=== PATIENT | female | born 1955 | race Caucasian/White ===

== ENCOUNTER 2019-02-26 14:37 | Inpatient (IN) ==
[2019-02-26] MEDS ORDERED: Naloxone 0.4 MG/ML INJ IVP PRN (17:34)
[2019-02-26] MEDS ORDERED: Ondansetron 4 MG/2 ML VIAL IVP PRN (17:34)
[2019-02-26] MEDS ORDERED: Ipratropium/Albuterol Neb 3 ML IH PRN (17:57)
--- NOTE | 2019-02-26 18:01 | Internal Med History&Physical ---
Date of Encounter: 02/26/19 Time of Encounter: 17:20 Internal Medicine - H&P: HPI Chief complaint: transfer from [facility] for symptomatic anemia Admitted From: Intrahospital Transfer Plans for Post Hospital Care: Transfer Half-Way Facility History of present illness: Ms. Valentino is a 63 year old female with PMH of COPD on home oxygen (2.5-3L NC), severe aortic stenosis, preserved EF heart failure, RA, HTN, anxiety, autoimmune disorder, CKD who was transferred from [facility] ER for further management of symptomatic anemia. Patient seen and examined with RN present at bedside. Patient states she was discharged from the hospital to SNF a few weeks ago, and since her discharge to home from SNF (two weeks ago), she has been gradually declining. She states she has been intermittently having dark stools, feeling more weak, and has had worsening of her shortness of breath. She states she lives with her sister but is usually able to bath herself but today she felt extremely weak to even get out of bed. She states she felt light headed and unsteady anytime she tried getting up, along with associated shortness of breath which prompted her visit to the ER. ER workup at [facility] reported Hgb of 6.1, elevated troponin of 0.119, BNP of 4188. CXR reported mild pulmonary congestion stool occult was negative. Upon arrival to the ER pt was noted to be hypoxic in high 80s off oxygen therapy. She was placed on 2L NC with significant improvement in her respiratory status. At this time, she is saturating well on nasal cannula. States she did receive PRBC transfusion a month ago. At that time she was treated for renal failure requiring hemodialysis. She was also positive for JAY and dsDNA. Pt underwent renal biopsy as well, findings reported acute tubular injury and further workup for monoclonal gammopathy was recommended. Pt is currently not on dialysis and renal function is back to baseline. Awaiting STAT type and screen and repeat CBC at this time. Ten point ROS is negative except as listed above. Pt elects Juli Christian [phone] (sister) as her POA Past Med Surg Social Fam HX - Past Medical History Medical history: arthritis, CHF, COPD, coronary artery disease, GERD, hyperlipidemia, hypertension Psychiatric history: bipolar, depression - Past Surgical History Surgical History: AICD, pacemaker Additional surgical history: "Open heart surgery" in 2017 - Social History Smoking Status: Never smoker Smokeless Tobacco Status: No Alcohol use: none Drug use: none - Family History Mother Hx Family Cardiac Disorders: Yes (CHF) Father Hx Family Cancer: Yes (lung) Internal Medicine - H&P: Meds Albuterol Neb [Proventil Neb] 2.5 mg IH Q4-6H PRN 01/01/19 [History] Albuterol Sulfate [Proventil Inhaler] 2 puff IH Q4HR PRN 01/01/19 [History] Aspirin [Adult Aspirin Regimen] 81 mg PO DAILY 01/01/19 [History] Atorvastatin [Lipitor] 20 mg PO HS 01/01/19 [History] Buspirone HCl [Buspar] 7.5 mg PO BID 01/01/19 [History] Cholecalciferol (Vitamin D3) [Vitamin D3] 50,000 unit PO MO 01/01/19 [History] DULoxetine [Cymbalta] 40 mg PO HS 01/01/19 [History] Gabapentin [Neurontin] 300 mg PO BID 01/01/19 [History] Magnesium Oxide [Magnesium] 400 mg PO DAILY 01/01/19 [History] Metoprolol [Lopressor] 37.5 mg PO BID 01/01/19 [History] Omeprazole [PriLOSEC] 40 mg PO DAILY 01/01/19 [History] Promethazine [Phenergan] 12.5 mg PO Q8HR PRN 01/01/19 [History] Umeclidinium [place] [Incruse Ellipta] 1 puff IH DAILY 01/01/19 [History] hydrOXYzine pamoate [Vistaril] 25 mg PO TID #15 capsule 01/04/19 [Rx] lamoTRIgine [Lamictal] 50 mg PO HS 01/09/19 [History] Calcitriol [Rocaltrol] 0.25 mcg PO DAILY #30 capsule 01/20/19 [Rx] Epoetin [place] [Procrit] 2,500 unit SQ 3XW vial 01/20/19 [Rx] Quetiapine Fumarate [Seroquel] 25 mg PO DAILY #30 tablet 01/20/19 [Rx] predniSONE [PredniSONE] 60 mg PO DAILY #90 tablet 01/20/19 [Rx] Allergy/AdvReac Type Severity Reaction Status Date / Time adalimumab [From Humira] Allergy See Verified 01/14/19 12:52 Comments celecoxib Allergy See Verified 01/14/19 12:52 Comments methotrexate Allergy Rash Verified 01/08/19 22:11 All Systems PM: A 10-system review of systems was performed and is negative for pertinent findings except as documented above in the HPI. Review of systems: Ten point ROS is negative except as listed in HPI - Constitutional Vitals: Temp Pulse Resp BP Pulse Ox 98.9 F 103 18 121/77 92 02/26/19 17:18 02/26/19 17:18 02/26/19 17:18 02/26/19 17:18 02/26/19 17:18 Exam: General: No acute distress, AAO x 3 HEENT: EOMI, PERRLA, NC/AT, no scleral icterus Respiratory: Clear to auscultate bilaterally, no wheezing, no rales Cardiovascular: Regular Rhythm, sinus tachycardia, + murmur GI: Soft, Non tender, non distended, normal bowel sounds Ext: No edema, no tenderness, positive pulses, arthritic deformities in bilateral hands Neuro: AAO x 3, no focal deficits, CN II-XII grossly intact Rest of the clinical exam is noncontributory - Summary of Assessment and Plan Summary of Assessment and Plan: Ms. Valentino is a 63 year old female with PMH of COPD on home oxygen (2.5-3L NC), severe aortic stenosis, preserved EF heart failure, RA, HTN, anxiety, autoimmune disorder, dialysis dependent MATEUS-now resolved, who was transferred from [facility] for further management of symptomatic anemia. Assessment/Plan: 1. Symptomatic anemia f/u repeat CBC, type and screen will transfuse PRBC after above lab workup has been obtained f/u stool occult f/u hematology and GI evaluation f/u iron studies, b12, folate levels will closely monitor H&H will closely monitor for signs of volume overload, will administer lasix after PRBC transfusion if needed 2. Elevated TNI likely demand ischemia in the setting of acute on chronic anemia will trend serial TNI no chest pain reported throughout the hospital course. No EKG changes concerning for ischemia reported. continue tele monitoring f/u lipid panel and HbA1C f/u cardiology evaluation in am f/u 2D echo 3. Chronic respiratory failure secondary to underlying COPD not in acute exacerbation continue O2 support and bronchodilator support as needed closely monitor O2 saturation 4. HTN BP within acceptable range will restart home medications after verification closely monitor BP 5. hx of CHF will restart home medications after verification no clinical evidence of CHF exacerbation f/u 2D echo DVT ppx: SCDs. LOS > 2 midnights will obtain PT eval prior to discharge Code status: Full code Care plan discussed with patient/RN - Time Spent With Patient Total time spent is greater than 50% in coordination of care (as documented) at patient's floor/unit and/or counseling patient:
[2019-02-26 18:02] LABS: Eosinophils % 0.2 %
[2019-02-26 18:04] LABS: Basophils % 0.6 %; Immature Granulocytes % 10.9 % (0-4); Lymphocytes # 1.3 K/mcL (0.6-4.6); Lymphocytes % 24.9 %; Mean Corpuscular HGB Conc 31.7 g/dL (31.6-35.5); Mean Corpuscular Hemoglobin 31.5 pg (28.0-33.3); Mean Corpuscular Volume 99.4 fL (83.0-100.0); Mean Platelet Volume 9.8 fL (9.4-12.4); Monocytes # 0.6 K/mcL (0.0-1.3); Monocytes % 11.4 %; Neutrophils # 2.8 K/mcL (1.6-8.9); Nucleated Red Blood Cells 4.2 /100 WBC (0); Platelet Count 138 K/mcL (140-400); Red Blood Count 1.81 M/mcL (3.82-4.97); Red Cell Distribution Width 19.2 % (11.5-14.5); White Blood Count 5.4 K/mcL (4.3-11.1)
[2019-02-26 18:07] LABS: Hemoglobin 5.7 g/dL (11.5-15.4)
[2019-02-26 18:27] LABS: Polychromasia 1+ (Not Present)
[2019-02-26 18:50] LABS: Folate 13.3 ng/mL (3.0-16.0)
[2019-02-26] MEDS ORDERED: 0.9 % Sodium Chloride 250 ML ONE (19:31)
[2019-02-26] MEDS ORDERED: Perflutren Lipid Microsphere 1.3 ML in 0.9 % Sodium Chloride 8.7 ML IVP ONE (21:54)
[2019-02-26 22:18] LABS: Immature Reticulocyte % 39.3 % (11.0-38.0); Retculocyte # 0.17 M/mcL (0.05-0.10); Reticulocyte % 9.5 % (1.6-2.8)
[2019-02-26 22:53] LABS: Troponin I 0.11 ng/mL (< 0.04)
[2019-02-27] MEDS ORDERED: 0.9 % Sodium Chloride 250 ML ONE (00:59)
[2019-02-27] MEDS: Acetaminophen 325 MG TABLET PO PRN ×2 (01:06→09:17)
[2019-02-27] MEDS ORDERED: traMADol 50 MG TABLET PO ONE (03:13)
[2019-02-27 06:17] LABS: Basophils # 0.1 K/mcL (0.0-0.2); Basophils % 1.3 %; Eosinophils % 0.3 %; Hematocrit 27.5 % (35.3-44.9); Immature Granulocytes % 10.3 % (0-4); Lymphocytes # 1.1 K/mcL (0.6-4.6); Lymphocytes % 18.7 %; Mean Corpuscular Hemoglobin 30.2 pg (28.0-33.3); Mean Corpuscular Volume 94.5 fL (83.0-100.0); Monocytes # 0.6 K/mcL (0.0-1.3); Monocytes % 10.3 %; Neutrophils # 3.6 K/mcL (1.6-8.9); Nucleated Red Blood Cells 5.1 /100 WBC (0); Platelet Count 138 K/mcL (140-400); Red Blood Count 2.91 M/mcL (3.82-4.97); Red Cell Distribution Width 17.9 % (11.5-14.5); Segmented Neutrophils % 59.1 %; White Blood Count 6.1 K/mcL (4.3-11.1)
[2019-02-27 06:24] LABS: Hemoglobin 8.8 g/dL (11.5-15.4)
[2019-02-27 06:42] LABS: Albumin 3.5 g/dL (3.5-5.7); Albumin/Globulin Ratio 0.9 (1.1-2.2); Bilirubin,Total 1.2 mg/dL (0.3-1.0); Calcium 9.4 mg/dL (8.6-10.3); Chol/HDL Ratio 4.3 (0-4.9); Globulin 3.7 g/dL (2.4-3.5); Magnesium 1.6 mg/dL (1.6-2.6); Phosphorous 4.6 mg/dL (2.7-4.5); Potassium 4.2 mEq/L (3.5-5.1); Total Protein 7.2 g/dL (6.4-8.9)
[2019-02-27 06:53] LABS: Anisocytosis 1+ (Not Present); Hypochromasia Present (Not Present); Large Platelets Present (Not Present); Platelet Estimate Slight Decrease (Normal); Polychromasia 1+ (Not Present)
[2019-02-27 09:37] LABS: Estimated Average Glucose 111 mg/dl
--- NOTE | 2019-02-27 10:11 | Internal Med Progress Note ---
Hospitalist Progress Note - Encounter Date of Encounter: 02/27/19 Time of Encounter: 10:08 - Subjective Interval History: Patient seen and examined at bedside. Resting in bed and reports of diffuse body pain and is noted to be on gabapentin at home for chronic pain. Denies any chest pain or shortness of breath. S/P 2 units PRBC transfusion. Reports improvement in her energy levels. Pt is requesting narcotic therapy and claimed she is on opioids at home but no pharmacy records of this were reported. Ten point ROS is negative except as listed above Noted to have up-trending troponin this morning but remains chest pain free and no EKG changes reported. Cardiology evaluation has been requested - Exam Vitals: Temp Pulse Resp BP Pulse Ox 98.6 F 73 18 137/76 99 02/27/19 06:32 02/27/19 06:32 02/27/19 06:32 02/27/19 06:32 02/27/19 09:29 Exam: General: No acute distress, AAO x 3 HEENT: EOMI, NC/AT, no scleral icterus Respiratory: Clear to auscultate bilaterally, no wheezing, no rales Cardiovascular: Regular Rhythm, sinus tachycardia, + murmur GI: Soft, Non tender, non distended, normal bowel sounds Ext: No edema, no tenderness, positive pulses, arthritic deformities in bilateral hands Neuro: AAO x 3, no focal deficits Rest of the clinical exam is noncontributory - Summary of Assessment and Plan Summary of Assessment and Plan: Ms. Valentino is a 63 year old female with PMH of COPD on home oxygen (2.5-3L NC), severe aortic stenosis, preserved EF heart failure, RA, HTN, anxiety, autoimmune disorder, dialysis dependent MATEUS-now resolved, who was transferred from [facility] for further management of symptomatic anemia. Assessment/Plan: 1. Symptomatic anemia s/p two unit PRBC transfusion on 02/26/19 Repeat H&H within acceptable range Spoke with Dr. Gibbs this morning, pt to be scheduled for EGD and colonoscopy in am. Clear liquid diet today Hematology evaluation requested will transfuse PRBC after above lab workup has been obtained iron studies consistent with anemia of chronic disease B12 and folate within normal limits will closely monitor H&H 2. Elevated TNI likely demand ischemia in the setting of acute on chronic anemia will trend serial TNI no chest pain reported throughout the hospital course. No EKG changes concerning for ischemia reported. continue tele monitoring 2D echo reporting LVEF of 60% awaiting cardiology evaluation 3. Chronic respiratory failure secondary to underlying COPD not in acute exacerbation continue O2 support and bronchodilator support as needed closely monitor O2 saturation 4. HTN BP within acceptable range restarted home medications closely monitor BP 5. hx of CHF continue home meds no clinical evidence of CHF exacerbation 2D echo reviewed 6. Chronic pain: restarted all necessary home medications 7. MATEUS likely prerenal given severe anemia will closely monitor hold all nephrotoxic agents at this time DVT ppx: SCDs. will obtain PT eval prior to discharge Code status: Full code Care plan discussed with patient/RN/consulting provider/pharmacist/case management/social work - Time Spent with Patient Total time spent is greater than 50% in coordination of care (as documented) at patient's floor/unit and/or counseling patient: Internal Medicine: Result - Labs CBC & Chem 7: 02/27/19 05:50 02/27/19 05:50 Labs: Short CBC 02/26/19 02/27/19 Range/Units 17:42 05:50 WBC 5.4 6.1 (4.3-11.1) K/mcL Hgb 5.7 L* 8.8 L D (11.5-15.4) g/dL Hct 18.0 L 27.5 L (35.3-44.9) % Plt Count 138 L 138 L (140-400) K/mcL Neutrophils # 2.8 3.6 (1.6-8.9) K/mcL BMP 02/27/19 05:50 Sodium 144 Potassium 4.2 Chloride 100 Carbon Dioxide 29 BUN 18 Creatinine 1.26 H Glucose 138 H Calcium 9.4 Cardiac Enzymes 02/26/19 02/26/19 02/27/19 Range/Units 17:42 22:40 05:50 Troponin I 0.11 H* 0.09 H* 0.15 H* (< 0.04) ng/mL Liver Function 02/27/19 Range/Units 05:50 Total Bilirubin 1.2 H (0.3-1.0) mg/dL AST 20 (13-39) Units/L ALT 15 (7-52) Units/L Alkaline Phosphatase 89 (34-104) Units/L Albumin 3.5 (3.5-5.7) g/dL - Impressions Impressions Echocardiogram Limited Views 02/26/19 17:38 Impressions: LVEF 60%. Normal LV chamber size, wall thickness and systolic function. Atypical septal motion consistent with bundle branch block. A device lead was visualized in the right atrium and right ventricle. Left Ventricular Wall Motion: Rest Echo Findings All wall segments showed normal motion. Findings: Study Quality * Technically adequate exam. ECG Findings * Sinus tachycardia with BBB. Left Ventricle * LVEF 60%. * Normal LV chamber size, wall thickness and systolic function. * Atypical septal motion consistent with bundle branch block. Pericardium * The pericardium appears normal. Device lead * A device lead was visualized in the right atrium and right ventricle. Consult Discharge Plan - Plan Referrals: Sammi Noyola [Primary Care Provider] -
[2019-02-27] MEDS ORDERED: NON-FORMULARY MEDICATION 1 EACH EACH (Umeclidinium Bromide [Incruse Ellipta] 1 PUFF) IH SCH (10:15)
[2019-02-27] MEDS ORDERED: predniSONE 5 MG TABLET PO SCH (11:00)
--- NOTE | 2019-02-27 12:15 | Cardiology Consult Note ---
<Delmar Norman - Last Filed: 02/27/19 12:09> Date of Encounter: 02/27/19 Time of Encounter: 11:30 Assessment and Plan (1) Elevated troponin Current Visit: Yes Status: Acute Troponin elevation0.11, 0.09, 0.15. Elevation in the setting of severe acute anemia. EKG with AV pacing. Pt state no chest pain but is really bothered by stuff constricting her chest (Telemetry stickers?). She is a poor historian. Suspect demand ischemia. Pt likely had LHC prior to valvular heart surgery. We will order records. TTE ordered. Further rec to follow. (2) Valvular heart disease Current Visit: No Status: Suspected Describes valvular repair and ppm placement 07/2018 at [facility]. Records ordered. Discussion w patient/family: The assessment and plan as outlined above was discussed with the patient and/or family members who expressed understanding and agreement. All questions were answered. Thank you for involving us in the care of your patient. Please call with any questions. History of Present Illness Consult date: 02/27/19 Requesting physician: Brielle Whelan Consult reason: elevated troponin Chief complaint: fatigue, SOB History of present illness: Ms. Valentino is a 63 year old female with PMH of valvular heart disease s/p repair 07/2018 at [facility], S/p PPM placement 07/2018, HTN, CKD. She was transferred from [facility] with symptomatic anemia. Hgb as low as 5.7. She c/o SOB and fatigue. Cardiology consulted for elevated troponin. She c/o frequent hospital visits for UTI, MATEUS, and anemia since her open heart valvular surgery. She required short term dialysis at one point. She is a poor historian. We will order records of recent surgery and cardiac testing. She states she deoes not have any chest pain although describes chest tightness due to her telemetry stickers? It is somewhat difficult to evaluate symptoms d/t being poor historian. Past Med Surg Social Fam HX - Past Medical History Medical history: arthritis, CHF, COPD, coronary artery disease, GERD, hyperlipidemia, hypertension, valvular heart disease Psychiatric history: bipolar, depression - Past Surgical History Surgical History: AICD, pacemaker Additional surgical history: "Open heart surgery" in 2017 - Social History Smoking Status: Never smoker Smokeless Tobacco Status: No Alcohol use: none Drug use: none - Family History Mother Hx Family Cardiac Disorders: Yes (CHF) Father Hx Family Cancer: Yes (lung) Medications and Allergies Albuterol Neb [Proventil Neb] 2.5 mg IH Q4-6H PRN 01/01/19 [History] Albuterol Sulfate [Proventil Inhaler] 2 puff IH Q4HR PRN 01/01/19 [History] Aspirin [Adult Aspirin Regimen] 81 mg PO DAILY 01/01/19 [History] Atorvastatin [Lipitor] 20 mg PO HS 01/01/19 [History] Buspirone HCl [Buspar] 7.5 mg PO BID 01/01/19 [History] Cholecalciferol (Vitamin D3) [Vitamin D3] 50,000 unit PO MO 01/01/19 [History] DULoxetine [Cymbalta] 40 mg PO HS 01/01/19 [History] Gabapentin [Neurontin] 300 mg PO BID 01/01/19 [History] Magnesium Oxide [Magnesium] 400 mg PO DAILY 01/01/19 [History] Metoprolol [Lopressor] 37.5 mg PO BID 01/01/19 [History] Omeprazole [PriLOSEC] 40 mg PO DAILY 01/01/19 [History] Promethazine [Phenergan] 12.5 mg PO Q8HR PRN 01/01/19 [History] Umeclidinium [place] [Incruse Ellipta] 1 puff IH DAILY 01/01/19 [History] hydrOXYzine pamoate [Vistaril] 25 mg PO TID #15 capsule 01/04/19 [Rx] lamoTRIgine [Lamictal] 50 mg PO HS 01/09/19 [History] Calcitriol [Rocaltrol] 0.25 mcg PO DAILY #30 capsule 01/20/19 [Rx] Epoetin [place] [Procrit] 2,500 unit SQ 3XW vial 01/20/19 [Rx] Quetiapine Fumarate [Seroquel] 25 mg PO DAILY #30 tablet 01/20/19 [Rx] predniSONE [PredniSONE] 5 mg PO DAILY 02/27/19 [History] Allergy/AdvReac Type Severity Reaction Status Date / Time adalimumab [From Humira] Allergy See Verified 01/14/19 12:52 Comments celecoxib Allergy See Verified 01/14/19 12:52 Comments methotrexate Allergy Rash Verified 01/08/19 22:11 All Systems Review: The remainder of the systems were reviewed and are negative Physical Examination Vital Signs, Last 4 Hours Temp Pulse Resp BP Pulse Ox 02/27/19 10:29 98.8 F 60 17 136/76 98 02/27/19 09:29 99 General: Conversant, No Apparent Distress, Other (pale, ill appearing) HEENT: Atraumatic, Normocephaly, Mucus Membranes Moist Neck: No JVD, Normal carotid pulses Cardiac: Reg Rate and Rhythm, Normal S1 and S2, No Murmur, Other (AV pacing, midsternal incision healed) Lungs: Normal Breath Sounds, No Wheeze, Rales, Rhonchi Neuro: Alert and responsive, No focal deficits noted Abdomen: Soft, Non-Tender Skin: No rashes noted on visualized skin Musculoskeletal: No Chest Wall Tenderness Extremities: No Clubbing, No Cyanosis, No Edema, Normal Pulses Results 02/27/19 05:50 02/27/19 05:50 Lab Results 02/26/19 02/26/19 02/26/19 17:42 17:42 22:40 WBC 5.4 Hgb 5.7 L* Hct 18.0 L Plt Count 138 L Sodium Potassium Chloride Carbon Dioxide BUN Creatinine Glucose Calcium Magnesium Total Bilirubin AST ALT Alkaline Phosphatase Troponin I 0.11 H* 0.09 H* 02/27/19 02/27/19 02/27/19 05:50 05:50 05:50 WBC 6.1 Hgb 8.8 L D Hct 27.5 L Plt Count 138 L Sodium 144 Potassium 4.2 Chloride 100 Carbon Dioxide 29 BUN 18 Creatinine 1.26 H Glucose 138 H Calcium 9.4 Magnesium 1.6 Total Bilirubin 1.2 H AST 20 ALT 15 Alkaline Phosphatase 89 Troponin I 0.15 H* - Imaging and Cardiology Echo: report reviewed - EKG Interpretation EKG results cardiology: personally reviewed Consult Discharge Plan - Plan Referrals: Sammi Noyola [Primary Care Provider] - <Natividad Sainz - Last Filed: 02/27/19 18:58> Date of Encounter: 02/27/19 - Attending Attestation Patient was seen and evaluated independently by me. Findings, assessment and plan were discussed at length with patient, questions answered. Agree with nurse practitioner's/resident's documentation. Addition as follows, 63yoF ho unclear valve surgery and PPM w/o A/C, moderate on TTE, COPD, RA, HTN. P/w dyspnea and fatigue. Sig for Hb 6 from baseline 10 1wk ago. Plan GIB w/u. Consulted for trop peak 0.15. No chest pain, palpitations. VSS, CTA, RR, 3/6 SM 2nd ICS and ULSB, no LE edema. ECG A-V pacing. [id number] TTE LVEF 60%. Atypical septal motion consistent with paced rhythm. There is tissue doppler evidence of elevated filling pressures Normal right size with mild right ventricular hypokinesis.. Moderate aortic stenosis. Peak aortic velocity and mean gradient are 3.24m/s and 26 mmHg, respectively. Moderate tricuspid regurgitation. Moderate pulmonary hypertension.Estimated RVSP is 59 mmHg. A device lead was visualized in the right atrium and right ventricle. A: Mild troponin elevation, type II likely Acute anemia, pending GIB w/u, moderate after [id number] probable AVR, r/o Heyde's syndrome/angiodysplasia PPM AP pacing MATEUS P: pending limited TTE pending EGD r/o angiodysplasia, if +, will need re-eval Natividad Sainz MD, PhD Assessment and Plan Discussion w patient/family: The assessment and plan as outlined above was discussed with the patient and/or family members who expressed understanding and agreement. All questions were answered. Thank you for involving us in the care of your patient. Please call with any questions. History of Present Illness History of present illness: Ms. Valentino is a 63 year old female All Systems Review: The remainder of the systems were reviewed and are negative Physical Examination Vital Signs, Last 4 Hours Temp Pulse Resp BP Pulse Ox 02/27/19 14:59 98.5 F 119 19 127/79 98 Results 02/27/19 17:03 02/27/19 05:50 Lab Results 02/26/19 02/26/19 02/27/19 17:42 22:40 05:50 WBC 6.1 Hgb 8.8 L D Hct 27.5 L Plt Count 138 L Sodium Potassium Chloride Carbon Dioxide BUN Creatinine Glucose Calcium Magnesium Total Bilirubin AST ALT Alkaline Phosphatase Troponin I 0.11 H* 0.09 H* 02/27/19 02/27/19 02/27/19 05:50 05:50 13:01 WBC Hgb Hct Plt Count Sodium 144 Potassium 4.2 Chloride 100 Carbon Dioxide 29 BUN 18 Creatinine 1.26 H Glucose 138 H Calcium 9.4 Magnesium 1.6 Total Bilirubin 1.2 H AST 20 ALT 15 Alkaline Phosphatase 89 Troponin I 0.15 H* 0.14 H* 02/27/19 17:03 WBC 5.2 Hgb 7.9 L Hct 25.0 L Plt Count 113 L Sodium Potassium Chloride Carbon Dioxide BUN Creatinine Glucose Calcium Magnesium Total Bilirubin AST ALT Alkaline Phosphatase Troponin I
[2019-02-27] MEDS: Magnesium Oxide 400 MG TABLET PO SCH (12:37)
[2019-02-27] MEDS: hydrOXYzine pamoate 25 MG CAPSULE PO SCH ×3 (12:37→21:31)
[2019-02-27] MEDS: Aspirin Enteric Coated 81 MG Tablet PO SCH (12:37)
[2019-02-27] MEDS: Gabapentin 300 MG CAPSULE PO SCH ×2 (12:37→21:31)
--- NOTE | 2019-02-27 12:45 | Electrocardiograph Report ---
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
[2019-02-27] MEDS: Tiotropium 18 MCG inhalation IH SCH (13:18)
--- NOTE | 2019-02-27 14:38 | Oncology Inp Consult Note ---
<Cornel Guzman - Last Filed: 02/27/19 22:31> Date of Encounter: 02/27/19 - Data of Consult Requesting Physician: Brielle Whelan MD Primary Care Provider: Sammi Noyola Medications and Allergies Albuterol Neb [Proventil Neb] 2.5 mg IH Q4-6H PRN 01/01/19 [History] Albuterol Sulfate [Proventil Inhaler] 2 puff IH Q4HR PRN 01/01/19 [History] Aspirin [Adult Aspirin Regimen] 81 mg PO DAILY 01/01/19 [History] Atorvastatin [Lipitor] 20 mg PO HS 01/01/19 [History] Buspirone HCl [Buspar] 7.5 mg PO BID 01/01/19 [History] Cholecalciferol (Vitamin D3) [Vitamin D3] 50,000 unit PO MO 01/01/19 [History] DULoxetine [Cymbalta] 40 mg PO HS 01/01/19 [History] Gabapentin [Neurontin] 300 mg PO BID 01/01/19 [History] Magnesium Oxide [Magnesium] 400 mg PO DAILY 01/01/19 [History] Metoprolol [Lopressor] 37.5 mg PO BID 01/01/19 [History] Omeprazole [PriLOSEC] 40 mg PO DAILY 01/01/19 [History] Promethazine [Phenergan] 12.5 mg PO Q8HR PRN 01/01/19 [History] Umeclidinium [place] [Incruse Ellipta] 1 puff IH DAILY 01/01/19 [History] hydrOXYzine pamoate [Vistaril] 25 mg PO TID #15 capsule 01/04/19 [Rx] lamoTRIgine [Lamictal] 50 mg PO HS 01/09/19 [History] Calcitriol [Rocaltrol] 0.25 mcg PO DAILY #30 capsule 01/20/19 [Rx] Epoetin [place] [Procrit] 2,500 unit SQ 3XW vial 01/20/19 [Rx] Quetiapine Fumarate [Seroquel] 25 mg PO DAILY #30 tablet 01/20/19 [Rx] predniSONE [PredniSONE] 5 mg PO DAILY 02/27/19 [History] Allergy/AdvReac Type Severity Reaction Status Date / Time adalimumab [From Humira] Allergy See Verified 01/14/19 12:52 Comments celecoxib Allergy See Verified 01/14/19 12:52 Comments methotrexate Allergy Rash Verified 01/08/19 22:11 Consult Discharge Plan - Plan Referrals: Sammi Noyola [Primary Care Provider] - - Attending Attestation I have seen and examined Ms Valentino and agree with the assessment and plan put in place by Mr. Tapia. She has RA on chronic prednisone. She was recently hospitalized for MATEUS secondary to acute tubular injury. She was on HD for a brief period which has been discontinued. At her last hospitalization, JAY and dsDNA positive. SPEP/SIFE without paraprotein. SFLC ratio normal and UIFE without BJ proteinuria. There is no evidence of myeloma/paraproteinemia. She has been admitted with progressive fatigue and significant anemia. Nutritional studies are normal. However, LDH is elevated, bilirubin minimally elevated concerning for hemolysis. Haptoglobin and KENIA pending. LDH may also be elevated from tissue ischemia (troponin is also elevated). Platelets have also decreased. If she has diminished haptoglobin and KENIA positivity, this would be c/w Adolfo's syndrome. For now, have placed on prednisone 60 mg daily pending above. GI has been consulted for EGD/colonoscopy planned for tomorrow. Further decisions pending the above. Inpatient Charges Provider: Dr. Alexandra Guzman Consult - Inpatient: [id number] <Galdino Tapia Jr - Last Filed: 02/28/19 11:46> Date of Encounter: 02/28/19 Time of Encounter: 14:36 Assessment and Plan (1) Anemia Status: Acute Assessment and plan: This is a 63-year-old female transferred from a [facility] for symptomatic anemia with Hgb of 5.8. Patient was recently diagnosed with tubular injury of kidneys and required hemodialysis. Her kidney functions recovered, and is no longer on dialysis. Patient's red blood cell panel has hospitalist concerned for something along the lines of monoclonal gammopathy. Patient's kidney functions currently stable with creatinine 1.26 and a GFR 43. calcium normal at 9.4 She is s/p two unit PRBC transfusion on 02/26/19 Hgb now 8.8 Iron Panel normal with ferritin>700, could be acute phase reactant B12 and folate within normal limits Recommendations: 1. Continue H/H and transfuse if Hgb<7. CBC ordered now to recheck Hgb 2. Serum free light chains normal ratio even though kappa/gamma elevated, no myeloma; protein electrophoresis with no monoclonal proteins. 3. Since JAY positive/reticulocytosis, check for hemolytic anemia: LDH, erythropoetin, haptoglobin. Added peripheral smear. ordered today. KENIA poly, Interpret was negative on 02/26/19. 4. Continue prednisone. 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 Dr. Gibbs is scheduled for EGD and colonoscopy tomorrow morning. 6. Further recommendations to follow Dr Guzman assessed patient with me today Qualifiers: Anemia type: iron deficiency Iron deficiency anemia type: inadequate dietary iron intake Qualified Code(s): D50.8 - Other iron deficiency anemias - Data of Consult Patient: new to practice Consult date: 02/27/19 Requesting Physician: Brielle Whelan MD Primary Care Provider: Sammi Noyola - Consult Narrative Reason for consult: anemia, symptomatic History of present illness: Ms. Valentino is a 63 year old female with PMH of COPD on home oxygen (2.5-3L NC), severe aortic stenosis, preserved EF heart failure, RA, HTN, anxiety, autoimmune disorder, CKD who was transferred from [facility] ER for further management of symptomatic anemia. She is a patient of Dr Orourke for RA, but she denies lupus history. She was discharged from the hospital to SNF a few weeks ago, and since her discharge to home from SNF (two weeks ago), she has been intermittently having dark stools, feeling more weak, and has had worsening of her shortness of breath. She states she lives with her sister but is usually able to bath herself but today she felt extremely weak to even get out of bed. She had dizziness on position change with exertional dyspnea ER workup at [facility] reported Hgb of 6.1, elevated troponin of 0.119, BNP of 4188. CXR reported mild pulmonary congestion stool occult was negative. Upon arrival to the ER pt was noted to be hypoxic in high 80s off oxygen therapy. She was placed on 2L NC with significant improvement in her respiratory status. She did receive PRBC transfusion a month ago. At that time she was treated for renal failure requiring hemodialysis She was also positive for JAY and dsDNA. Pt underwent renal biopsy as well, findings reported acute tubular injury and further workup for monoclonal gammopathy was recommended. Pt is currently not on dialysis and renal function is back to baseline. Past Med Surg Social Fam HX - Past Medical History Medical history: arthritis, CHF, COPD, coronary artery disease, GERD, hyperlipidemia, hypertension, valvular heart disease Psychiatric history: bipolar, depression - Past Surgical History Surgical History: AICD, pacemaker Additional surgical history: "Open heart surgery" in 2017 - Social History Smoking Status: Never smoker Smokeless Tobacco Status: No Alcohol use: none Drug use: none - Family History Mother Hx Family Cardiac Disorders: Yes (CHF) Father Hx Family Cancer: Yes (lung) Constitutional: Present: fatigue, malaise Respiratory: Present: dyspnea on exertion Neurological: Present: dizziness Oncology - Exam - Constitutional General appearance: cooperative, no acute distress - Head Head exam: Present: normal inspection, normocephalic - Eye Eye exam: Present: PERRL - ENT ENT exam: Present: mucous membranes moist - Neck Neck exam: Present: full ROM - Respiratory Respiratory exam: Present: CTAB - Cardiovascular Cardiovascular exam: Present: RRR - GI/Abdominal GI/Abdominal exam: Present: soft - Extremities Exam Extremities exam: Present: full ROM - Neurological Exam Neurological exam: Present: alert, oriented X3, no focal deficits - Psychiatric Psychiatric exam: Present: normal affect, normal mood - Skin Skin exam: Present: dry, intact, warm Oncology Inpatient Results Labs: Laboratory Last Values WBC 6.1 K/mcL (4.3-11.1) 02/27/19 05:50 RBC 2.91 M/mcL (3.82-4.97) L 02/27/19 05:50 Hgb 8.8 g/dL (11.5-15.4) L D 02/27/19 05:50 Hct 27.5 % (35.3-44.9) L 02/27/19 05:50 MCV 94.5 fL (83.0-100.0) 02/27/19 05:50 MCH 30.2 pg (28.0-33.3) 02/27/19 05:50 MCHC 32.0 g/dL (31.6-35.5) 02/27/19 05:50 RDW 17.9 % (11.5-14.5) H 02/27/19 05:50 Plt Count 138 K/mcL (140-400) L 02/27/19 05:50 MPV 10.0 fL (9.4-12.4) 02/27/19 05:50 Reticulocyte # 0.17 M/mcL (0.05-0.10) H 02/26/19 17:42 Immature Gran % 10.3 % (0-4) H 02/27/19 05:50 Seg Neutrophils % 59.1 % 02/27/19 05:50 18.7 % 02/27/19 05:50 10.3 % 02/27/19 05:50 0.3 % 02/27/19 05:50 1.3 % 02/27/19 05:50 3.6 K/mcL (1.6-8.9) 02/27/19 05:50 1.1 K/mcL (0.6-4.6) 02/27/19 05:50 0.6 K/mcL (0.0-1.3) 02/27/19 05:50 0.0 K/mcL (0.0-0.6) 02/27/19 05:50 0.1 K/mcL (0.0-0.2) 02/27/19 05:50 Nucleated RBCs/100 WBC 5.1 /100 WBC (0) H 02/27/19 05:50 Slight Decrease (Normal) L 02/27/19 05:50 Present (Not Present) A 02/27/19 05:50 1+ (Not Present) A 02/27/19 05:50 Present (Not Present) A 02/27/19 05:50 1+ (Not Present) A 02/27/19 05:50 Percent Retic 9.5 % (1.6-2.8) H 02/26/19 17:42 Immature Retic Fraction 39.3 % (11.0-38.0) H 02/26/19 17:42 Retic Hgb Equivalent 33.9 pg (28.61-36.33) 02/26/19 17:42 Sodium 144 mEq/L (136-145) 02/27/19 05:50 Potassium 4.2 mEq/L (3.5-5.1) 02/27/19 05:50 Chloride 100 mEq/L (98-107) 02/27/19 05:50 Carbon Dioxide 29 mEq/L (23-29) 02/27/19 05:50 BUN 18 mg/dL (8-23) 02/27/19 05:50 1.26 mg/dL (0.60-1.20) H 02/27/19 05:50 Est GFR ( Amer) 52 (> 60) L 02/27/19 05:50 Est GFR (Non-Af Amer) 43 (> 60) L 02/27/19 05:50 14 (6-26) 02/27/19 05:50 Glucose 138 mg/dL (70-105) H 02/27/19 05:50 POC Glucose 167 mg/dL (70-99) H 02/27/19 06:36 Est Mean Plasma Glucose 111 mg/dl 02/27/19 05:50 5.5 % (-5.6) 02/27/19 05:50 302 (280-300) H 02/27/19 05:50 Calcium 9.4 mg/dL (8.6-10.3) 02/27/19 05:50 Phosphorus 4.6 mg/dL (2.7-4.5) H 02/27/19 05:50 Magnesium 1.6 mg/dL (1.6-2.6) 02/27/19 05:50 Iron 53 mcg/dL (50-170) 02/26/19 17:42 % Saturation 17 % (15-50) 02/26/19 17:42 221 mg/dL (203-362) 02/26/19 17:42 753 ng/mL (10-120) H 02/26/19 17:42 1.2 mg/dL (0.3-1.0) H 02/27/19 05:50 AST 20 Units/L (13-39) 02/27/19 05:50 ALT 15 Units/L (7-52) 02/27/19 05:50 89 Units/L (34-104) 02/27/19 05:50 477 Units/L (140-271) H 02/26/19 17:42 0.15 ng/mL (< 0.04) H* 02/27/19 05:50 7.2 g/dL (6.4-8.9) 02/27/19 05:50 3.5 g/dL (3.5-5.7) 02/27/19 05:50 3.7 g/dL (2.4-3.5) H 02/27/19 05:50 0.9 (1.1-2.2) L 02/27/19 05:50 Triglycerides 270 mg/dL (< 150) H 02/27/19 05:50 Cholesterol 124 mg/dL (< 200) 02/27/19 05:50 LDL Cholesterol, Calc 41 mg/dL (0-99) 02/27/19 05:50 VLDL Cholesterol, Calc 54 mg/dL (< 31) H 02/27/19 05:50 29 mg/dL (40-59) L 02/27/19 05:50 4.3 (0-4.9) 02/27/19 05:50 Vitamin B12 408 pg/mL (250-1100) 02/26/19 17:42 13.3 ng/mL (3.0-16.0) 02/26/19 17:42 Blood Type O NEGATIVE 02/26/19 17:42 Antibody Screen POSITIVE 02/26/19 17:42 Antibody Identification Anti-K 02/26/19 17:42 KENIA, Poly Interpret NEG 02/26/19 17:42 MTS Gel Crossmatch See Detail 02/26/19 17:42
--- NOTE | 2019-02-27 15:10 | Gastroenterology Consult Note ---
<Td Wilkinson Jeff - Last Filed: 02/27/19 15:07> Date of Encounter: 02/27/19 Time of Encounter: 10:55 - Assessment and plan (1) Anemia Current Visit: No Status: Acute Assessment and plan: Hgb 6.1 at [facility]. On arrival here, Hgb 5.7 and today Hgb 8.8 after receiving 2 units PRBC. Continue to monitor CBC and transfuse PRBC as needed. Plan for EGD and colonoscopy tomorrow. Clear liquid diet today, no red or purple. NPO at midnight. If unable tolerate NuLytely please use MiraLAX prep. If not clear by 6 AM, give 2 tap water enemas. Qualifiers: Iron deficiency anemia type: inadequate dietary iron intake Qualified Code(s): D50.8 - Other iron deficiency anemias (2) Elevated troponin Current Visit: Yes Status: Acute Assessment and plan: Troponin elevated 0.11-0.09-0.15. Management per Cardiology. - Time Spent With Patient Total time spent is greater than 50% in coordination of care (as documented) at patient's floor/unit and/or counseling patient: GI History of Present Illness - Data of Consult Patient: new to practice Consult date: 02/27/19 Requesting Physician: Brielle Whelan MD - Consult Narrative Reason for consult: Anemia History of present illness: Ms. Valentino is a 63 year old female with PMHx of CHF, COPD, CAD, GERD, HLD, HTN, RA who was transferred from [facility] for evaluation of symptomatic anemia. Patient states she was discharged from the hospital to SNF a few weeks ago, and since her discharge to home from SNF (two weeks ago), she has been gradually declining. She states she has been intermittently having dark stools, feeling more weak, and has had worsening of her shortness of breath. Hgb 6.1 at [facility]. On arrival here, Hgb 5.7 and today Hgb 8.8 after receiving 2 units PRBC. Troponin elevated 0.11-0.09-0.15. Procedures: Colonoscopy in [place] normal per patient report. EGD 12/28/2009 Dr. Tapia: Gastritis. Colonoscopy 12/28/2009 Dr. Tapia: No pathology available, unable to open report. NSAIDs: ASA Anticoagulation: None Past Med Surg Social Fam HX - Past Medical History Medical history: arthritis, CHF, COPD, coronary artery disease, GERD, hyperlipidemia, hypertension, valvular heart disease Psychiatric history: bipolar, depression - Past Surgical History Surgical History: AICD, pacemaker Additional surgical history: "Open heart surgery" in 2017 - Social History Smoking Status: Never smoker Smokeless Tobacco Status: No Alcohol use: none Drug use: none - Family History Mother Hx Family Cardiac Disorders: Yes (CHF) Father Hx Family Cancer: Yes (lung) - Gastrointestinal Gastrointestinal: Present: as per HPI - Constitutional Constitutional: as per HPI - EENT Eyes: as per HPI Ears: Present: as per HPI Nose, mouth and throat: Present: as per HPI - Cardiovascular Cardiovascular ROS: Present: as per HPI - Respiratory Respiratory IM: Present: as per HPI - Genitourinary Genitourinary: Absent: change in color, Urinary frequency - Neurological ROS Neurological GI: Present: as per HPI - Hematologic/Lymphatic Hematologic/Lymphatic pediatric: Present: as per HPI - Musculoskeletal Musculoskeletal ROS GI: Present: as per HPI - Integumentary Integumentary GI: Present: as per HPI - Psychiatric ROS Psychiatric GI: Present: as per HPI - Endocrine Endocrine IM: Present: as per HPI - Constitutional Vitals: Temp Pulse Resp BP Pulse Ox 98.5 F 119 19 127/79 98 02/27/19 14:59 02/27/19 14:59 02/27/19 14:59 02/27/19 14:59 02/27/19 14:59 General appearance: Present: cooperative, A&O X 3, no acute distress, answers questions appropriately - Head Head exam: Present: atraumatic, normocephalic - Eye Eye exam: Present: normal appearance, sclera anicteric - ENT ENT exam: Present: mucous membranes dry - Neck Neck exam general surgery: Present: normal inspection, trachea midline - Respiratory Respiratory exam: Present: CTAB. Absent: rales, rhonchi - Cardiovascular Cardiovascular exam: Present: RRR Additional comments: + murmur - GI/Abdominal GI/Abdominal exam: Present: soft, no peritoneal signs. Absent: distended, firm, guarding, tenderness - Rectal Rectal exam: Present: deferred - Extremities Exam Extremities exam: Present: warm - Neurological Exam Neurological exam: Present: no focal deficits - Psychiatric Psychiatric exam: Present: normal affect, normal mood - Skin Skin exam: Present: dry, intact, normal color, warm Results - Labs CBC & Chem 7: 02/27/19 05:50 02/27/19 05:50 Labs: Last Result 02/27/19 02/27/19 02/27/19 05:50 05:50 13:01 Calcium 9.4 Troponin I 0.15 H* 0.14 H* Triglycerides 270 H Entire Visit 02/27/19 02/27/19 05:50 05:50 Hgb 8.8 L D Hct 27.5 L Total Bilirubin 1.2 H AST 20 ALT 15 - Impressions Impressions Echocardiogram Limited Views 02/26/19 17:38 Impressions: LVEF 60%. Normal LV chamber size, wall thickness and systolic function. Atypical septal motion consistent with bundle branch block. A device lead was visualized in the right atrium and right ventricle. Left Ventricular Wall Motion: Rest Echo Findings All wall segments showed normal motion. Findings: Study Quality * Technically adequate exam. ECG Findings * Sinus tachycardia with BBB. Left Ventricle * LVEF 60%. * Normal LV chamber size, wall thickness and systolic function. * Atypical septal motion consistent with bundle branch block. Pericardium * The pericardium appears normal. Device lead * A device lead was visualized in the right atrium and right ventricle. Consult Discharge Plan - Plan Referrals: Sammi Noyola [Primary Care Provider] - <Sotero Gibbs - Last Filed: 02/27/19 22:14> Date of Encounter: 02/27/19 Time of Encounter: 17:20 - Time Spent With Patient Total time spent is greater than 50% in coordination of care (as documented) at patient's floor/unit and/or counseling patient: GI History of Present Illness - Data of Consult Requesting Physician: Brielle Whelan MD - Consult Narrative History of present illness: Ms. Valentino is a 63 year old female - Constitutional Vitals: Temp Pulse Resp BP Pulse Ox 99.8 F H 64 20 114/70 98 02/27/19 21:28 02/27/19 21:28 02/27/19 21:28 02/27/19 21:28 02/27/19 21:28 Results - Labs CBC & Chem 7: 02/27/19 17:03 02/27/19 05:50 Labs: Last Result 07/11/19 13:01 Troponin I 0.14 H* Entire Visit 02/27/19 17:03 Hgb 7.9 L Hct 25.0 L - Impressions Impressions Echocardiogram Limited Views 02/26/19 17:38 Impressions: LVEF 60%. Normal LV chamber size, wall thickness and systolic function. Atypical septal motion consistent with bundle branch block. A device lead was visualized in the right atrium and right ventricle. Left Ventricular Wall Motion: Rest Echo Findings All wall segments showed normal motion. Findings: Study Quality * Technically adequate exam. ECG Findings * Sinus tachycardia with BBB. Left Ventricle * LVEF 60%. * Normal LV chamber size, wall thickness and systolic function. * Atypical septal motion consistent with bundle branch block. Pericardium * The pericardium appears normal. Device lead * A device lead was visualized in the right atrium and right ventricle. - Attending Attestation I have personally performed a face to face evaluation on this patient. I have reviewed and agree with the care plan. History and Exam by me shows: Patient seen . patient admitted because of symptomatic anemia. Examination patient is alert and awake not in acute distress abdomen is benign. A: With symptomatic anemia does has chronic medical problems including chronic kidney disease and the anemia is most probably due to anemia of chronic disease but rule out GI causes. Recommendation: EGD colonoscopy tomorrow
[2019-02-27] MEDS ORDERED: SODIUM CHLORIDE/NAHCO3/KCL/PEG 4,000 ML SOLN.RECON PO ONE (17:00)
[2019-02-27 17:44] LABS: Hemoglobin 7.9 g/dL (11.5-15.4); Mean Corpuscular HGB Conc 31.6 g/dL (31.6-35.5); Mean Corpuscular Hemoglobin 30.6 pg (28.0-33.3); Mean Corpuscular Volume 96.9 fL (83.0-100.0); Mean Platelet Volume 9.9 fL (9.4-12.4); Nucleated Red Blood Cells 3.3 /100 WBC (0); Platelet Count 113 K/mcL (140-400); Red Blood Count 2.58 M/mcL (3.82-4.97); Red Cell Distribution Width 18.6 % (11.5-14.5); White Blood Count 5.2 K/mcL (4.3-11.1)
[2019-02-27 18:11] LABS: Lymphocytes # 0.9 K/mcL (0.6-4.6); Monocytes # 0.3 K/mcL (0.0-1.3); Neutrophils # 3.9 K/mcL (1.6-8.9); Platelet Estimate Slight Decrease (Normal)
[2019-02-27] MEDS: lamoTRIgine 100 MG TABLET PO SCH (21:31)
[2019-02-28 06:48] LABS: BUN/Creatinine Ratio 12 (6-26); Blood Urea Nitrogen 12 mg/dL (8-23); Calcium 8.8 mg/dL (8.6-10.3); Carbon Dioxide 27 mEq/L (23-29); Chloride 106 mEq/L (98-107); Glucose 98 mg/dL (70-105); Magnesium 1.6 mg/dL (1.6-2.6); Osmolality,Calculated 294 (280-300); Phosphorous 2.9 mg/dL (2.7-4.5); Sodium 142 mEq/L (136-145); eGFR For African Americans > 60 (> 60); eGFR For Non-African Americans 57 (> 60)
[2019-02-28] MEDS ORDERED: Propofol 500 MG/50 ML INFUS..BTL ONE (07:00)
[2019-02-28 07:24] LABS: Basophils # 0.1 K/mcL (0.0-0.2); Basophils % 0.9 %; Eosinophils % 0.3 %; Hematocrit 25.5 % (35.3-44.9); Hemoglobin 8.5 g/dL (11.5-15.4); Immature Granulocytes % 7.7 % (0-4); Lymphocytes # 1.8 K/mcL (0.6-4.6); Lymphocytes % 29.8 %; Mean Corpuscular HGB Conc 33.3 g/dL (31.6-35.5); Mean Corpuscular Hemoglobin 31.1 pg (28.0-33.3); Mean Corpuscular Volume 93.4 fL (83.0-100.0); Mean Platelet Volume 10.6 fL (9.4-12.4); Monocytes # 0.7 K/mcL (0.0-1.3); Monocytes % 12.6 %; Neutrophils # 2.9 K/mcL (1.6-8.9); Nucleated Red Blood Cells 3.4 /100 WBC (0); Platelet Count 127 K/mcL (140-400); Red Blood Count 2.73 M/mcL (3.82-4.97); Red Cell Distribution Width 18.5 % (11.5-14.5); Segmented Neutrophils % 48.7 %; White Blood Count 5.9 K/mcL (4.3-11.1)
[2019-02-28 07:25] LABS: Platelet Estimate Normal (Normal)
[2019-02-28] MEDS ORDERED: Lidocaine -MPF 2% 2 ML VIAL ONE (08:12)
[2019-02-28] MEDS ORDERED: *HR* PHENYLEPHRINE 1,000 MCG/10 ML SYRINGE IVP ONE (08:13)
--- NOTE | 2019-02-28 08:17 | Anesthesia Evaluation PreOp ---
Date of Encounter: 02/28/19 Time of Encounter: 08:15 - Past History Planned Operation: EGD and colonoscopy Cardiac History: HTN, Hyperlipidemia, Arrhythmia (afib), Pacemaker/ICD (pacer), Other (troponin elevated in the setting of acute anemia) Pulmonary History: COPD (on 2.5L oxygen) [employer] History: Other (bipolar depression) Other Medical History: Renal (MATEUS requiring breif dialysis), GERD, Other (acute blood loss anemia) Anesthesia History: No Prior Anesthetic Complications, Past Anesthesia (Aortic valvuloplasty) Alcohol Use: none Drug use: none Medications and Allergies Albuterol Neb [Proventil Neb] 2.5 mg IH Q4-6H PRN 01/01/19 [History] Albuterol Sulfate [Proventil Inhaler] 2 puff IH Q4HR PRN 01/01/19 [History] Aspirin [Adult Aspirin Regimen] 81 mg PO DAILY 01/01/19 [History] Atorvastatin [Lipitor] 20 mg PO HS 01/01/19 [History] Buspirone HCl [Buspar] 7.5 mg PO BID 01/01/19 [History] Cholecalciferol (Vitamin D3) [Vitamin D3] 50,000 unit PO MO 01/01/19 [History] DULoxetine [Cymbalta] 40 mg PO HS 01/01/19 [History] Gabapentin [Neurontin] 300 mg PO BID 01/01/19 [History] Magnesium Oxide [Magnesium] 400 mg PO DAILY 01/01/19 [History] Metoprolol [Lopressor] 37.5 mg PO BID 01/01/19 [History] Omeprazole [PriLOSEC] 40 mg PO DAILY 01/01/19 [History] Promethazine [Phenergan] 12.5 mg PO Q8HR PRN 01/01/19 [History] Umeclidinium [place] [Incruse Ellipta] 1 puff IH DAILY 01/01/19 [History] hydrOXYzine pamoate [Vistaril] 25 mg PO TID #15 capsule 01/04/19 [Rx] lamoTRIgine [Lamictal] 50 mg PO HS 01/09/19 [History] Calcitriol [Rocaltrol] 0.25 mcg PO DAILY #30 capsule 01/20/19 [Rx] Epoetin [place] [Procrit] 2,500 unit SQ 3XW vial 01/20/19 [Rx] Quetiapine Fumarate [Seroquel] 25 mg PO DAILY #30 tablet 01/20/19 [Rx] predniSONE [PredniSONE] 5 mg PO DAILY 02/27/19 [History] Allergy/AdvReac Type Severity Reaction Status Date / Time adalimumab [From Humira] Allergy See Verified 01/14/19 12:52 Comments celecoxib Allergy See Verified 01/14/19 12:52 Comments methotrexate Allergy Rash Verified 01/08/19 22:11 - Meds/Allergy Pre-op Review Medications Reviewed: Yes Allergies Reviewed: Yes Beta Blockers on Current Med List: No Anesthesia Results - Labs 02/28/19 06:15 02/28/19 06:15 - Imaging EKG: report reviewed ( Interpretive Statements ELECTRONIC VENTRICULAR PACEMAKER ABNORMAL RHYTHM ECG Electronically Signed On 02-27-2019 12:44:05 EDT by Demetrice Sarmiento) Additional studies: Echocardiogram Limited Views 02/26/19 17:38 Impressions: LVEF 60%. Normal LV chamber size, wall thickness and systolic function. Atypical septal motion consistent with bundle branch block. A device lead was visualized in the right atrium and right ventricle. Left Ventricular Wall Motion: Rest Echo Findings All wall segments showed normal motion. Findings: Study Quality * Technically adequate exam. ECG Findings * Sinus tachycardia with BBB. Left Ventricle * LVEF 60%. * Normal LV chamber size, wall thickness and systolic function. * Atypical septal motion consistent with bundle branch block. Pericardium * The pericardium appears normal. Device lead * A device lead was visualized in the right atrium and right ventricle. Anesthesia Exam Vital Signs/O2 Sat, Most Current Temp Pulse Resp BP Pulse Ox 99.0 F 66 18 144/70 97 02/28/19 07:59 02/28/19 07:59 02/28/19 07:59 02/28/19 07:59 02/28/19 07:59 Weight: 56kg NPO (# of Hours): >8 - HEENT Pupil (Motor): Pupils equal Mallampati: III Teeth: Edentulous Oral Opening: Greater than 3 - [employer] LOC: Oriented [employer] Motor: Normal RUE, Normal LUE, Normal RLE, Normal LLE, Normal Face [employer] Sensory: Normal: RUE, LUE, RLE, LLE, Face - Cardiac Rhythm: Regular - Pulmonary Breath Sounds: bilateral Clear Respiratory Effort: Labored Anesthesia Assess/Plan ASA Score: 4 Level of consciousness: Cooperative Anesthetic Plan: MAC (increased risk of respiratory failure resulting in intubation and ICU stay) Monitoring Plan: Standard Monitors Recovery Plan: PACU
[2019-02-28] MEDS ORDERED: *HR* Metoprolol 5 MG/5 ML VIAL IVP ONE (08:21)
--- NOTE | 2019-02-28 09:32 | Anesthesia Evaluation Post Op ---
Date of Encounter: 02/28/19 Time of Encounter: 09:31 - Vital Signs Vital Signs: Vital Signs/O2 Sat, Most Current Temp Pulse Resp BP Pulse Ox 98.1 F 119 18 145/85 100 02/28/19 09:27 02/28/19 09:27 02/28/19 09:27 02/28/19 09:27 02/28/19 09:27 - Lungs Lungs: Clear Ascult./Percussion - Airway Airway: Non-obstructed - Mental Status Mental Status: Baseline Status - Pain Pain Scale: 0 Pain Scale used: Numeric (1 - 10) - Nausea Vomiting Nausea Vomiting: Not Present - Hydration Hydration: NPO - Discharge PostOp Status: Transfer Patient to floor
[2019-02-28 09:38] LABS: Lactate Dehydrogenase 483 Units/L (140-271)
[2019-02-28] MEDS: Tiotropium 18 MCG inhalation IH SCH (09:55)
[2019-02-28] MEDS: hydrOXYzine pamoate 25 MG CAPSULE PO SCH ×3 (10:01→20:04)
[2019-02-28] MEDS: predniSONE 20 MG TABLET PO SCH (10:02)
[2019-02-28] MEDS: Magnesium Oxide 400 MG TABLET PO SCH (10:03)
[2019-02-28] MEDS: Aspirin Enteric Coated 81 MG Tablet PO SCH (10:03)
[2019-02-28] MEDS: Gabapentin 300 MG CAPSULE PO SCH ×2 (10:03→20:04)
[2019-02-28 10:52] LABS: Bilirubin,Urine Negative (Negative); Blood,Urine Small (Negative); Clarity,Urine Clear (Clear); Color,Urine Yellow (Yellow); Glucose,Urine (UA) Normal (Normal); Ketones,Urine Negative (Negative); Leukocyte Esterase,Urine Small (Negative); Nitrite,Urine Negative (Negative); Protein,Urine 30 mg/dL (Neg-Trace); Specific Gravity,Urine 1.009 (1.010-1.025); Urobilinogen,Urine Normal (Normal)
[2019-02-28 10:55] LABS: Bacteria,Urine Few per hpf (None-Few); RBC,Urine 0-3 per hpf (0-3); Squamous Epithelial Cell,Urine Many per lpf (None-Few); WBC,Urine 15-30 per hpf (0-3)
[2019-02-28 11:11] LABS: Renal Epithelial Cells,Urine Few per hpf (None-Few)
--- NOTE | 2019-02-28 11:16 | Cardiology Progress Note ---
Date of Encounter: 02/28/19 Time of Encounter: 11:12 Assessment and Plan (1) Elevated troponin Current Visit: Yes Status: Acute Troponin elevation0.11, 0.09, 0.15, 0.14. Elevation in the setting of severe acute anemia. EKG with AV pacing. Pt state no chest pain but is really bothered by stuff constricting her chest (Telemetry stickers?). She is a poor historian. Suspect demand ischemia. S/p aortic valve repair at [facility] 07/2018. Known moderate on echo 12/2018 TTE this admission shows preserved EF/ No further cardiac testing at this time. 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 Heparin gtt deferred due to acute anemia. Cardiology will sign off. (2) Valvular heart disease Current Visit: No Status: Suspected H/o aortic valvular repair? with moderate remaining. 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 Discussion w patient/family: The assessment and plan as outlined above was discussed with the patient and/or family members who expressed understanding and agreement. All questions were ans wered. Thank you for involving us in the care of your patient. Please call with any questions. Subjective Principal diagnosis: acute anemia Objective Vital Signs, Last 4 Hours Temp Pulse Resp BP Pulse Ox 02/28/19 10:52 97 F L 89 16 92/54 97 02/28/19 09:48 118 18 124/71 100 02/28/19 09:33 116 19 136/73 02/28/19 09:27 98.1 F 119 18 145/85 100 02/28/19 07:59 99.0 F 66 18 144/70 97 General: Conversant, No Apparent Distress, Other (Pale) HEENT: Atraumatic, Normocephaly, Mucus Membranes Moist Neck: No JVD, Normal carotid pulses Cardiac: Reg Rate and Rhythm, Normal S1 and S2, No Murmur Lungs: Normal Breath Sounds, No Wheeze, Rales, Rhonchi Neuro: Alert and responsive, No focal deficits noted Abdomen: Soft, Non-Tender Skin: No rashes noted on visualized skin Musculoskeletal: No Chest Wall Tenderness Extremities: No Clubbing, No Cyanosis, No Edema, Normal Pulses Results 02/28/19 06:15 02/28/19 06:15 Lab Results 02/27/19 02/27/19 02/28/19 13:01 17:03 06:15 WBC 5.2 5.9 Hgb 7.9 L 8.5 L Hct 25.0 L 25.5 L Plt Count 113 L 127 L Sodium Potassium Chloride Carbon Dioxide BUN Creatinine Glucose Calcium Magnesium Troponin I 0.14 H* 02/28/19 06:15 WBC Hgb Hct Plt Count Sodium 142 Potassium 4.0 Chloride 106 Carbon Dioxide 27 BUN 12 Creatinine 0.99 Glucose 98 Calcium 8.8 Magnesium 1.6 Troponin I - Imaging and Cardiology Echo: report reviewed Consult Discharge Plan - Plan Referrals: Sammi Noyola [Primary Care Provider] -
--- NOTE | 2019-02-28 13:10 | Internal Med Progress Note ---
Hospitalist Progress Note - Encounter Date of Encounter: 02/28/19 Time of Encounter: 13:07 - Subjective Interval History: Patient seen and examined earlier today. she is s/p EGD and colonoscopy. Resting in bed, states she did not get much rest last night but denies any sob, chest pain at this time. Chronic pain is adequately controlled. EGD/Colonoscopy negative for acute bleed Hematology on board and patient undergoing workup for anemia PT eval recommended SNF, case management on board for placement Ten point ROS is negative except as listed above - Exam Vitals: Temp Pulse Resp BP Pulse Ox 97 F L 89 16 92/54 97 02/28/19 10:52 02/28/19 10:52 02/28/19 10:52 02/28/19 10:52 02/28/19 10:52 Exam: General: No acute distress, AAO x 3 HEENT: EOMI, NC/AT, no scleral icterus Respiratory: Clear to auscultate bilaterally, no wheezing, no rales Cardiovascular: Regular Rhythm, sinus tachycardia, + murmur GI: Soft, Non tender, non distended, normal bowel sounds Ext: No edema, no tenderness, positive pulses, arthritic deformities in bilateral hands Neuro: AAO x 3, no focal deficits Rest of the clinical exam is noncontributory - Summary of Assessment and Plan Summary of Assessment and Plan: Ms. Valentino is a 63 year old female with PMH of COPD on home oxygen (2.5-3L NC), severe aortic stenosis, preserved EF heart failure, RA, HTN, anxiety, autoimmune disorder, dialysis dependent MATEUS-now resolved, who was transferred from [facility] ER for further management of symptomatic anemia. Assessment/Plan: 1. Symptomatic anemia s/p two unit PRBC transfusion on 02/26/19 Repeat H&H within acceptable range s/p EGD and colonoscopy, no acute bleeding reported Hematology evaluation appreciated started on Prednisone 60mgPO qdaily due to concern for autoimmune hemolytic anemia iron studies consistent with anemia of chronic disease B12 and folate within normal limits will closely monitor H&H awaiting Haptoglobin and KENIA LDH elevated 2. Elevated TNI likely demand ischemia in the setting of acute on chronic anemia will trend serial TNI no chest pain reported throughout the hospital course. No EKG changes concerning for ischemia reported. continue tele monitoring 2D echo reporting LVEF of 60% no intervention recommended by cardiology, outpatient follow up recommended for close monitoring of Aortic Stenosis 3. Chronic respiratory failure secondary to underlying COPD not in acute exacerbation continue O2 support and bronchodilator support as needed closely monitor O2 saturation 4. HTN BP within acceptable range restarted home medications closely monitor BP 5. hx of CHF continue home meds no clinical evidence of CHF exacerbation 2D echo reviewed 6. Chronic pain:continue necessary home medications 7. MATEUS resolved likely prerenal given severe anemia will closely monitor hold all nephrotoxic agents at this time DVT ppx: SCDs. will obtain PT eval prior to discharge Code status: Full code Care plan discussed with patient/RN/consulting provider/case management/social work - Time Spent with Patient Total time spent is greater than 50% in coordination of care (as documented) at patient's floor/unit and/or counseling patient: Internal Medicine: Result - Labs CBC & Chem 7: 02/28/19 06:15 02/28/19 06:15 Labs: Short CBC 02/27/19 02/28/19 Range/Units 17:03 06:15 WBC 5.2 5.9 (4.3-11.1) K/mcL Hgb 7.9 L 8.5 L (11.5-15.4) g/dL Hct 25.0 L 25.5 L (35.3-44.9) % Plt Count 113 L 127 L (140-400) K/mcL Neutrophils # 3.9 2.9 (1.6-8.9) K/mcL BMP 02/28/19 06:15 Sodium 142 Potassium 4.0 Chloride 106 Carbon Dioxide 27 BUN 12 Creatinine 0.99 Glucose 98 Calcium 8.8 Cardiac Enzymes 02/27/19 Range/Units 13:01 Troponin I 0.14 H* (< 0.04) ng/mL Urine 02/28/19 Range/Units 10:25 Urine Color Yellow (Yellow) Urine Clarity Clear (Clear) Urine pH 7.0 (5.0-8.0) pH Units Ur Specific [place] 1.009 L (1.010-1.025) Urine Protein 30 H (Neg-Trace) mg/dL Urine Glucose (UA) Normal (Normal) mg/dL Consult Discharge Plan - Plan Referrals: Sammi Noyola [Primary Care Provider] -
--- NOTE | 2019-02-28 17:25 | Oncology Inp Progress Note ---
<Alba Phan S - Last Filed: 03/01/19 18:34> Date of Encounter: 02/28/19 Oncology: Obj Data - Labs CBC & Chem 7: 03/01/19 09:56 03/01/19 09:56 Consult Discharge Plan - Plan Referrals: Sammi Noyola [Primary Care Provider] - Inpatient Charges Provider: Dr. Fran Phan Follow up - Inpatient: [id number] - Attending Attestation I examined this patient and my medical decision-making was reviewed with the Advanced Practice Nurse. I agree with the documented findings, disposition and treatment plan as described except to the extent set forth below. 1. Macrocytic anemia at least since December 2018. I do not have any previous values to compare with. Hemoglobin used to be around 8-8.5. MCV 100. She is hospitalized with 5.7 hemoglobin. With transfusion and it came up. LDH elevated to 420. But Arcelia direct test negative Ferritin high at 720. B12 folate TSH normal. Serum protein electrophoresis negative. Light chains mildly elevated around 10 with normal ratio. Most likely this is polyclonal. 2 urine for Bence-Lozada protein CT abdomen and pelvis 02/28/2019 was negative. No hepatosplenomegaly. EGD and colonoscopy 02/28/2019 Dr. Gibbs negative other than mild antral gastritis and 2 small polyps about 2 mm. Await pathology At this time the differential for macrocytic anemia includes autoimmune versus myelodysplastic syndrome. She is on prednisone 60 mg daily. If she does not have adequate response would consider bone marrow biopsy 2. Likely acute tubular necrosis in December 2018 creatinine when up to date. She had renal biopsy which documented tubular injury and some glomera lower scleros is. ANCA negative. Her renal function has improved with creatinine 1. GFR still low at 50. This may be contributing to some of the anemia 3. Likely autoimmune disorder. Would benefit from rheumatology consult Dr. Carrillo. She has elevated JAY of 1:640 and positive double-stranded DNA. Also positive lupus anticoagulant. We will repeat lupus anticoagulant. I do not see rheumatoid factor and we will order one 4. Positive lupus anticoagulant on December 2018. She is not on anticoagulation and we will recommend against anticoagulation given her anemia. She is on aspirin 81 mg a day which should be okay to continue given that there is no evidence of bleeding <Galdino Tapia Jr - Last Filed: 03/03/19 08:17> Date of Encounter: 03/03/19 Time of Encounter: 17:00 (1) Anemia Current Visit: No Status: Acute Assessment and plan: This is a 63-year-old female transferred from a [facility] for symptomatic anemia with Hgb of 5.8. Patient was recently diagnosed with tubular injury of kidneys and required hemodialysis. Her kidney functions recovered, and is no longer on dialysis. Iron Panel normal with ferritin>700, could be acute phase reactant B12 and folate within normal limits Plan: Transfuse if Hgb<7. Hgb 8.5 currently No myeloma based on SPEP and light chains with no monoclonal proteins. Since JAY positive/reticulocytosis, elevated LDH, continued anemia, suspect autoimmune hemolysis. Peripheral smear pending Continue prednisone 60mg daily over the weekend since suspected autoimmune hemolysis. May raise BG and need for insulin Dr. Gibbs scopes today colon polyps, no bleeding. Since macrocytic, B12 and folate normal, liver and spleen on 01/08/19 CT scan unremarkable. Since counts worsened, repeat scan to assess liver/spleen. Discussed need for possible bone marrow biopsy on Sunday versus outpatient. Dr Phan to decide as we watch her Hgb trends on prednisone. Dr Phan assessed patient with me today, and supervisor long goods over weekend and next week. Qualifiers: Anemia type: iron deficiency Iron deficiency anemia type: other iron deficiency Qualified Code(s): D50.8 - Other iron deficiency anemias (2) Autoimmune hemolytic anemia Current Visit: Yes Status: Acute Oncology: Subj Interval history: The patient resting in supine position alone without family members bedside. She states she feels better than yesterday, more energy, appetite is better - Constitutional General appearance: cooperative, no acute distress - Head Head exam: Present: normal inspection, normocephalic - Eye Eye exam: Present: PERRL - Neck Neck exam: Present: full ROM - Respiratory Respiratory exam: Present: CTAB - Cardiovascular Cardiovascular exam: Present: RRR - GI/Abdominal GI/Abdominal exam: Present: normal bowel sounds, soft, tenderness Additional comments: LUQ - Extremities Exam Extremities exam: Present: full ROM, normal inspection - Neurological Exam Neurological exam: Present: alert, oriented X3, no focal deficits - Psychiatric Psychiatric exam: Present: normal affect, normal mood - Skin Skin exam: Present: dry, intact, warm Oncology: Obj Data - Labs CBC & Chem 7: 07/15/19 05:39 03/03/19 05:39
[2019-02-28] MEDS: Insulin LISPRO 300 UNITS/3 ML VIAL SQ SCH ×2 (18:45→20:12)
[2019-02-28] MEDS: Acetaminophen 325 MG TABLET PO PRN (20:03)
[2019-02-28] MEDS: lamoTRIgine 100 MG TABLET PO SCH (20:04)
[2019-02-28] MEDS: *HR* HYDROcodone/Acet 5/325 mg TABLET PO PRN (23:24)
[2019-03-01] MEDS: Tiotropium 18 MCG inhalation IH SCH (07:30)
[2019-03-01] MEDS: hydrOXYzine pamoate 25 MG CAPSULE PO SCH ×3 (08:28→20:49)
[2019-03-01] MEDS: predniSONE 20 MG TABLET PO SCH (08:28)
[2019-03-01] MEDS: Aspirin Enteric Coated 81 MG Tablet PO SCH (08:29)
[2019-03-01] MEDS: Insulin LISPRO 300 UNITS/3 ML VIAL SQ SCH ×4 (08:29→20:50)
[2019-03-01] MEDS: Magnesium Oxide 400 MG TABLET PO SCH (08:29)
[2019-03-01] MEDS: Gabapentin 300 MG CAPSULE PO SCH ×2 (08:29→20:49)
--- NOTE | 2019-03-01 09:51 | Internal Med Progress Note ---
Hospitalist Progress Note - Encounter Date of Encounter: 03/01/19 Time of Encounter: 09:49 - Subjective Interval History: Patient seen and examined at bedside. States she feels tired because she did not get much sleep last night. Reports of having more energy since hospitalization. reports of participating with physical therapy. Denies any chest pain or shortness of breath at this time. Pt encouraged to get out of bed to chair and increase activity as tolerated. Ten point ROS is negative except as listed above PT eval recommending SNF Case management on board for placement - Exam Vitals: Temp Pulse Resp BP Pulse Ox 98.2 F 98 16 145/84 99 03/01/19 06:41 03/01/19 06:41 03/01/19 06:41 03/01/19 06:41 03/01/19 06:41 Exam: General: No acute distress, AAO x 3 HEENT: EOMI, NC/AT, no scleral icterus Respiratory: Clear to auscultate bilaterally, no wheezing, no rales Cardiovascular: Regular Rhythm, sinus tachycardia, + murmur GI: Soft, Non tender, non distended, normal bowel sounds Ext: No edema, no tenderness, positive pulses, arthritic deformities in bilateral hands Neuro: AAO x 3, no focal deficits Rest of the clinical exam is noncontributory - Summary of Assessment and Plan Summary of Assessment and Plan: Ms. Valentino is a 63 year old female with PMH of COPD on home oxygen (2.5-3L NC), severe aortic stenosis, preserved EF heart failure, RA, HTN, anxiety, autoimmune disorder, dialysis dependent MATEUS-now resolved, who was transferred from [facility] for further management of symptomatic anemia. Assessment/Plan: 1. Symptomatic anemia s/p two unit PRBC transfusion on 02/26/19 Repeat H&H within acceptable range s/p EGD and colonoscopy, no acute bleeding reported Hematology evaluation appreciated on Prednisone 60mgPO qdaily due to concern for autoimmune hemolytic anemia iron studies consistent with anemia of chronic disease B12 and folate within normal limits will closely monitor H&H awaiting hematology input on bone marrow biopsy. 2. Elevated TNI likely demand ischemia in the setting of acute on chronic anemia will trend serial TNI no chest pain reported throughout the hospital course. No EKG changes concerning for ischemia reported. continue tele monitoring 2D echo reporting LVEF of 60% no intervention recommended by cardiology, outpatient follow up recommended for close monitoring of Aortic Stenosis 3. Chronic respiratory failure secondary to underlying COPD not in acute exacerbation continue O2 support and bronchodilator support as needed closely monitor O2 saturation 4. HTN BP within acceptable range restarted home medications closely monitor BP 5. hx of CHF continue home meds no clinical evidence of CHF exacerbation 2D echo reviewed 6. Chronic pain:continue necessary home medications 7. MATEUS resolved likely prerenal given severe anemia will closely monitor hold all nephrotoxic agents at this time 8. Hyperglycemia Likely secondary to steroid therapy HbA1C: 5.5 will start Levemir 10units sq qdaily based on last 24 hour insulin requirements continue sliding scale insulin algorithm monitor fingerstick and blood glucose will start ADA diet DVT ppx: SCDs. PT eval recommending SNF placement, case management on board for placement Care plan discussed with patient/RN - Time Spent with Patient Total time spent is greater than 50% in coordination of care (as documented) at patient's floor/unit and/or counseling patient: Internal Medicine: Result - Labs CBC & Chem 7: 02/28/19 06:15 02/28/19 06:15 Labs: Urine 02/28/19 Range/Units 10:25 Urine Color Yellow (Yellow) Urine Clarity Clear (Clear) Urine pH 7.0 (5.0-8.0) pH Units Ur Specific [place] 1.009 L (1.010-1.025) Urine Protein 30 H (Neg-Trace) mg/dL Urine Glucose (UA) Normal (Normal) mg/dL - Impressions Impressions Abdomen/Pelvis CT 02/28/19 17:54 IMPRESSION: Bibasilar ground-glass opacity and septal thickening. Correlation for pulmonary edema is recommended. No acute noncontrast abdominopelvic abnormality. D/ / Mariana Martinez Cha, MD / Mariana Martinez Cha, MD Interpreting Provider: Mariana Martinez Cha, MD Consult Discharge Plan - Plan Referrals: Sammi Noyola [Primary Care Provider] -
[2019-03-01 10:26] LABS: Basophils % 0.2 %; Eosinophils % 0.2 %; Hematocrit 23.3 % (35.3-44.9); Hemoglobin 7.3 g/dL (11.5-15.4); Immature Granulocytes % 4.7 % (0-4); Lymphocytes # 0.7 K/mcL (0.6-4.6); Lymphocytes % 11.5 %; Mean Corpuscular HGB Conc 31.3 g/dL (31.6-35.5); Mean Corpuscular Hemoglobin 30.8 pg (28.0-33.3); Mean Corpuscular Volume 98.3 fL (83.0-100.0); Mean Platelet Volume 9.5 fL (9.4-12.4); Monocytes # 0.4 K/mcL (0.0-1.3); Monocytes % 7.3 %; Neutrophils # 4.4 K/mcL (1.6-8.9); Nucleated Red Blood Cells 1.4 /100 WBC (0); Platelet Count 129 K/mcL (140-400); Red Blood Count 2.37 M/mcL (3.82-4.97); Red Cell Distribution Width 18.8 % (11.5-14.5); Segmented Neutrophils % 76.1 %; White Blood Count 5.7 K/mcL (4.3-11.1)
[2019-03-01 10:35] LABS: BUN/Creatinine Ratio 19 (6-26); Blood Urea Nitrogen 21 mg/dL (8-23); Carbon Dioxide 29 mEq/L (23-29); Chloride 105 mEq/L (98-107); Glucose 155 mg/dL (70-105); Magnesium 1.6 mg/dL (1.6-2.6); Osmolality,Calculated 302 (280-300); Phosphorous 2.3 mg/dL (2.7-4.5); Potassium 3.7 mEq/L (3.5-5.1); Sodium 143 mEq/L (136-145); eGFR For African Americans > 60 (> 60); eGFR For Non-African Americans 50 (> 60)
[2019-03-01] MEDS: Insulin DETEMIR 100 UNIT/ML X5UNITS SQ SCH (11:27)
[2019-03-01] MEDS: *HR* HYDROcodone/Acet 5/325 mg TABLET PO PRN ×2 (11:28→20:56)
--- NOTE | 2019-03-01 18:48 | Oncology Inp Progress Note ---
Date of Encounter: 03/01/19 Time of Encounter: 18:46 (1) Autoimmune hemolytic anemia Current Visit: Yes Status: Acute Assessment and plan: 1. Macrocytic anemia at least since December 2018. I do not have any previous values to compare with. Hemoglobin used to be around 8-8.5. MCV 100. She is hospitalized with 5.7 hemoglobin. With transfusion and it came up. LDH elevated to 420. But Arcelia direct test negative Ferritin high at 720. B12 folate TSH normal. Serum protein electrophoresis negative. Light chains mildly elevated around 10 with normal ratio. Most likely this is polyclonal. 2 urine for Bence-Lozada protein CT abdomen and pelvis 02/28/2019 was negative. No hepatosplenomegaly. EGD and colonoscopy 02/28/2019 Dr. Gibbs negative other than mild antral gastritis and 2 small polyps about 2 mm. Await pathology At this time the differential for macrocytic anemia includes autoimmune versus myelodysplastic syndrome. She is on prednisone 60 mg daily. If she does not have adequate response would consider bone marrow biopsy Likely autoimmune disorder. Would benefit from rheumatology consult Dr. Carrillo. She has elevated JAY of 1:640 and positive double-stranded DNA. Also positive lupus anticoagulant. We will repeat lupus anticoagulant. I do not see rheumatoid factor and we will order one Status post aortic stenosis repair December 2018. During this admission her troponin is elevated at 0.14. Cardiology consult noted. Could be demand ischemia from anemia. (2) MATEUS (acute kidney injury) Current Visit: No Status: Acute Assessment and plan: Likely acute tubular necrosis in December 2018 creatinine when up to date. She had renal biopsy which documented tubular injury and some glomera lower sclerosis. ANCA negative. Her renal function has improved with creatinine 1. GFR still low at 50. This may be contributing to some of the anemia (3) Lupus anticoagulant positive Current Visit: No Status: Acute Assessment and plan: Positive lupus anticoagulant on December 2018. She is not on anticoagulation and we will recommend against anticoagulation given her anemia. She is on aspirin 81 mg a day which should be okay to continue given that there is no evidence of bleeding - Constitutional Exam: GENERAL: Alert and oriented, fatigue. Mental Status: Affect appropriate for circumstances HEENT: Sclerae anicteric. No mucositis or thrush. No other oral or pharyngeal lesions or erythema. Skin: No rashes or petechiae. No evidence of skin malignancy Lymph nodes: No cervical, supraclavicular, axillary, or inguinal adenopathy. Lungs: Clear to auscultation and percussion bilaterally. Cardiovascular: Regular rate and rhythm. No gallops, murmurs, or rubs. Abdomen: Soft, , no ascites Extremities: No edema. No calf swelling or tenderness. No joint deformity. Neurologic: Alert, cranial nerves II-XII intact; no focal deficits. Oncology: Obj Data - Labs CBC & Chem 7: 03/03/19 05:39 03/03/19 05:39 Consult Discharge Plan - Plan Referrals: Sammi Noyola [Primary Care Provider] - Inpatient Charges Provider: Dr. Fran Phan Follow up - Inpatient: [id number]
[2019-03-01] MEDS: lamoTRIgine 100 MG TABLET PO SCH (20:48)
[2019-03-02 04:44] LABS: Potassium 4.3 mEq/L (3.5-5.1)
[2019-03-02 04:45] LABS: Calcium 9.3 mg/dL (8.6-10.3); Magnesium 1.9 mg/dL (1.6-2.6); Phosphorous 2.8 mg/dL (2.7-4.5)
[2019-03-02 04:47] LABS: Hematocrit 25.3 % (35.3-44.9); Hemoglobin 7.8 g/dL (11.5-15.4); Lymphocytes # 0.8 K/mcL (0.6-4.6); Mean Corpuscular HGB Conc 30.8 g/dL (31.6-35.5); Mean Corpuscular Hemoglobin 30.8 pg (28.0-33.3); Mean Platelet Volume 10.7 fL (9.4-12.4); Nucleated Red Blood Cells 1.9 /100 WBC (0); Platelet Count 152 K/mcL (140-400); Red Blood Count 2.53 M/mcL (3.82-4.97); Red Cell Distribution Width 19.5 % (11.5-14.5); White Blood Count 5.9 K/mcL (4.3-11.1)
[2019-03-02] MEDS: *HR* HYDROcodone/Acet 5/325 mg TABLET PO PRN ×2 (04:49→17:48)
[2019-03-02 05:28] LABS: Monocytes # 0.1 K/mcL (0.0-1.3); Neutrophils # 4.8 K/mcL (1.6-8.9); Platelet Estimate Normal (Normal)
[2019-03-02] MEDS: Tiotropium 18 MCG inhalation IH SCH (07:49)
[2019-03-02] MEDS: hydrOXYzine pamoate 25 MG CAPSULE PO SCH ×3 (08:50→20:17)
[2019-03-02] MEDS: Aspirin Enteric Coated 81 MG Tablet PO SCH (08:51)
[2019-03-02] MEDS: predniSONE 20 MG TABLET PO SCH (08:51)
[2019-03-02] MEDS: Gabapentin 300 MG CAPSULE PO SCH ×2 (08:52→20:16)
[2019-03-02] MEDS: Magnesium Oxide 400 MG TABLET PO SCH (08:52)
[2019-03-02] MEDS: Insulin LISPRO 300 UNITS/3 ML VIAL SQ SCH ×4 (09:00→20:45)
[2019-03-02] MEDS: Insulin DETEMIR 100 UNIT/ML X5UNITS SQ SCH (09:00)
[2019-03-02] MEDS: Albuterol 2.5 MG/3 ML NEBULIZER IH PRN (12:04)
--- NOTE | 2019-03-02 14:12 | Internal Med Progress Note ---
Hospitalist Progress Note - Encounter Date of Encounter: 03/02/19 Time of Encounter: 14:12 - Subjective Interval History: Patient seen and examined earlier today with RN present at bedside. Patient is sitting in chair and states pain is adequately controlled she is noted to have a positive Urine culture with MDRO ESBL positive Klebsiella Pneumoniae. She denies any dysuria or increased frequency at this time. No overnight events reported. Ten point ROS is negative except as listed above - Exam Vitals: Temp Pulse Resp BP Pulse Ox 98.9 F 99 18 143/86 99 03/02/19 11:45 03/02/19 11:45 03/02/19 12:05 03/02/19 11:45 03/02/19 12:05 Exam: General: No acute distress, AAO x 3 HEENT: EOMI, NC/AT, no scleral icterus Respiratory: Clear to auscultate bilaterally, no wheezing, no rales Cardiovascular: Regular Rhythm, sinus tachycardia, + murmur GI: Soft, Non tender, non distended, normal bowel sounds Ext: No edema, no tenderness, positive pulses, arthritic deformities in bilateral hands Neuro: AAO x 3, no focal deficits Rest of the clinical exam is noncontributory - Summary of Assessment and Plan Summary of Assessment and Plan: Ms. Valentino is a 63 year old female with PMH of COPD on home oxygen (2.5-3L NC), severe aortic stenosis, preserved EF heart failure, RA, HTN, anxiety, autoimmune disorder, dialysis dependent MATEUS-now resolved, who was transferred from [facility] for further management of symptomatic anemia. Assessment/Plan: 1. Symptomatic anemia s/p two unit PRBC transfusion on 02/26/19 Repeat H&H within acceptable range s/p EGD and colonoscopy, no acute bleeding reported Hematology evaluation appreciated on Prednisone 60mgPO qdaily due to concern for autoimmune hemolytic anemia iron studies consistent with anemia of chronic disease B12 and folate within normal limits will closely monitor H&H awaiting hematology input on bone marrow biopsy (inpatient vs. outpatient) if Hematology recommends outpatient bone marrow biopsy, tentative d/c to SNF in am 2. Elevated TNI likely demand ischemia in the setting of acute on chronic anemia will trend serial TNI no chest pain reported throughout the hospital course. No EKG changes concerning for ischemia reported. continue tele monitoring 2D echo reporting LVEF of 60% no intervention recommended by cardiology, outpatient follow up recommended for close monitoring of Aortic Stenosis 3. Chronic respiratory failure secondary to underlying COPD not in acute exacerbation continue O2 support and bronchodilator support as needed closely monitor O2 saturation 4. HTN BP within acceptable range restarted home medications closely monitor BP 5. hx of CHF continue home meds no clinical evidence of CHF exacerbation 2D echo reviewed 6. Chronic pain:continue necessary home medications 7. MATEUS likely prerenal given severe anemia will closely monitor hold all nephrotoxic agents at this time 8. Hyperglycemia Likely secondary to steroid therapy HbA1C: 5.5 continue Levemir 10units sq qdaily continue sliding scale insulin algorithm monitor fingerstick and blood glucose will start ADA diet 9. UTI will start Ertapenem 1gm IV qdaily based on urine culture results DVT ppx: SCDs. PT eval recommending SNF placement, case management on board for placement Care plan discussed with patient/RN - Time Spent with Patient Total time spent is greater than 50% in coordination of care (as documented) at patient's floor/unit and/or counseling patient: Internal Medicine: Result - Labs CBC & Chem 7: 03/02/19 04:07 03/02/19 04:07 Labs: Short CBC 03/02/19 Range/Units 04:07 WBC 5.9 (4.3-11.1) K/mcL Hgb 7.8 L (11.5-15.4) g/dL Hct 25.3 L (35.3-44.9) % Plt Count 152 (140-400) K/mcL Neutrophils # 4.8 (1.6-8.9) K/mcL BMP 03/02/19 04:07 Sodium 143 Potassium 4.3 Chloride 107 Carbon Dioxide 27 BUN 26 H Creatinine 1.27 H Glucose 172 H Calcium 9.3 Consult Discharge Plan - Plan Referrals: Sammi Noyola [Primary Care Provider] -
[2019-03-02] MEDS: Ertapenem 1,000 MG in 0.9 % Sodium Chloride Mini Bag 100 ML IVPB SCH (15:25)
[2019-03-02] MEDS: lamoTRIgine 100 MG TABLET PO SCH (20:16)
[2019-03-03] MEDS: *HR* HYDROcodone/Acet 5/325 mg TABLET PO PRN ×3 (03:34→18:31)
[2019-03-03 06:25] LABS: Hematocrit 25.4 % (35.3-44.9); Hemoglobin 7.7 g/dL (11.5-15.4); Mean Corpuscular HGB Conc 30.3 g/dL (31.6-35.5); Mean Corpuscular Hemoglobin 31.3 pg (28.0-33.3); Mean Corpuscular Volume 103.3 fL (83.0-100.0); Mean Platelet Volume 9.8 fL (9.4-12.4); Nucleated Red Blood Cells 2.7 /100 WBC (0); Platelet Count 140 K/mcL (140-400); Red Blood Count 2.46 M/mcL (3.82-4.97); White Blood Count 7.5 K/mcL (4.3-11.1)
[2019-03-03 06:52] LABS: Calcium 9.6 mg/dL (8.6-10.3); Phosphorous 3.4 mg/dL (2.7-4.5); Potassium 4.4 mEq/L (3.5-5.1)
[2019-03-03 07:28] LABS: Large Platelets Present (Not Present); Lymphocytes # 0.3 K/mcL (0.6-4.6); Monocytes # 1.1 K/mcL (0.0-1.3); Neutrophils # 6.2 K/mcL (1.6-8.9)
[2019-03-03 07:29] LABS: Anisocytosis 2+ (Not Present); Macrocytosis Present (Not Present); Microcytosis Present (Not Present)
[2019-03-03 07:30] LABS: Basophilic Stippling 1+ (Not Present); Polychromasia 1+ (Not Present)
[2019-03-03] MEDS: Tiotropium 18 MCG inhalation IH SCH (08:14)
[2019-03-03] MEDS: Albuterol 2.5 MG/3 ML NEBULIZER IH PRN (08:16)
[2019-03-03] MEDS: Insulin LISPRO 300 UNITS/3 ML VIAL SQ SCH ×4 (09:20→19:36)
[2019-03-03] MEDS: Magnesium Oxide 400 MG TABLET PO SCH (09:25)
[2019-03-03] MEDS: predniSONE 20 MG TABLET PO SCH (09:25)
[2019-03-03] MEDS: Gabapentin 300 MG CAPSULE PO SCH ×2 (09:25→20:21)
[2019-03-03] MEDS: Aspirin Enteric Coated 81 MG Tablet PO SCH (09:25)
[2019-03-03] MEDS: hydrOXYzine pamoate 25 MG CAPSULE PO SCH ×3 (09:25→20:21)
[2019-03-03] MEDS: Insulin DETEMIR 100 UNIT/ML X5UNITS SQ SCH (09:27)
[2019-03-03] MEDS: Ertapenem 1,000 MG in 0.9 % Sodium Chloride Mini Bag 100 ML IVPB SCH (09:29)
--- NOTE | 2019-03-03 10:09 | Internal Med Progress Note ---
Hospitalist Progress Note - Encounter Date of Encounter: 03/03/19 Time of Encounter: 10:07 - Subjective Interval History: Patient seen and examined with RN present at bedside. Resting in bed and reports of having a dry cough this morning. Denies any shortness of breath or chest pain. No overnight events reported. Ten point ROS is negative except as listed above - Exam Vitals: Temp Pulse Resp BP Pulse Ox 98.0 F 100 17 131/76 90 03/03/19 07:09 03/03/19 07:09 03/03/19 08:17 03/03/19 07:09 03/03/19 09:42 Exam: General: No acute distress, AAO x 3 HEENT: EOMI, NC/AT, no scleral icterus Respiratory: Clear to auscultate bilaterally, no wheezing, no rales Cardiovascular: Regular Rhythm, sinus tachycardia, + murmur GI: Soft, Non tender, non distended, normal bowel sounds Ext: No edema, no tenderness, positive pulses, arthritic deformities in bilateral hands Neuro: AAO x 3, no focal deficits Rest of the clinical exam is noncontributory - Summary of Assessment and Plan Summary of Assessment and Plan: Ms. Valentino is a 63 year old female with PMH of COPD on home oxygen (2.5-3L NC), severe aortic stenosis, preserved EF heart failure, RA, HTN, anxiety, autoimmune disorder, dialysis dependent MATEUS-now resolved, who was transferred from [facility] for further management of symptomatic anemia. Assessment/Plan: 1. Symptomatic anemia s/p two unit PRBC transfusion on 02/26/19 Repeat H&H within acceptable range s/p EGD and colonoscopy, no acute bleeding reported Hematology evaluation appreciated on Prednisone 60mgPO qdaily due to concern for autoimmune hemolytic anemia iron studies consistent with anemia of chronic disease B12 and folate within normal limits will closely monitor H&H awaiting hematology input on bone marrow biopsy (inpatient vs. outpatient) 2. Elevated TNI likely demand ischemia in the setting of acute on chronic anemia will trend serial TNI no chest pain reported throughout the hospital course. No EKG changes concerning for ischemia reported. continue tele monitoring 2D echo reporting LVEF of 60% no intervention recommended by cardiology, outpatient follow up recommended for close monitoring of Aortic Stenosis 3. Chronic respiratory failure secondary to underlying COPD not in acute exacerbation continue O2 support and bronchodilator support as needed closely monitor O2 saturation 4. HTN BP within acceptable range restarted home medications closely monitor BP 5. hx of CHF continue home meds no clinical evidence of CHF exacerbation 2D echo reviewed 6. Chronic pain:continue necessary home medications 7. MATEUS likely prerenal given severe anemia will closely monitor hold all nephrotoxic agents at this time 8. Hyperglycemia Likely secondary to steroid therapy HbA1C: 5.5 continue Levemir 10units sq qdaily continue sliding scale insulin algorithm monitor fingerstick and blood glucose will start ADA diet 9. UTI given asymptomatic clinical status, will treat for a total of three days Ertapenem 1gm IV qdaily based on urine culture results (Day 2/3) DVT ppx: SCDs. PT eval recommending SNF placement, case management on board for placement Care plan discussed with patient/RN/pharmacist/case management - Time Spent with Patient Total time spent is greater than 50% in coordination of care (as documented) at patient's floor/unit and/or counseling patient: Internal Medicine: Result - Labs CBC & Chem 7: 03/03/19 05:39 03/03/19 05:39 Labs: Short CBC 03/03/19 Range/Units 05:39 WBC 7.5 (4.3-11.1) K/mcL Hgb 7.7 L (11.5-15.4) g/dL Hct 25.4 L (35.3-44.9) % Plt Count 140 (140-400) K/mcL Neutrophils # 6.2 (1.6-8.9) K/mcL BMP 03/03/19 05:39 Sodium 144 Potassium 4.4 Chloride 104 Carbon Dioxide 30 H BUN 31 H Creatinine 1.26 H Glucose 125 H Calcium 9.6 Consult Discharge Plan - Plan Referrals: Sammi Noyola [Primary Care Provider] -
[2019-03-03 18:04] LABS: APTT (LE Anticoag) 26 sec (32-48); Diluted Russell Viper Venom 34 sec (33-44); PT (LE-Anticoag) 12.2 sec (12.0-15.5)
[2019-03-03] MEDS: lamoTRIgine 100 MG TABLET PO SCH (20:21)
[2019-03-04 03:47] LABS: Basophils % 0.4 %; Hemoglobin 7.6 g/dL (11.5-15.4); Immature Granulocytes % 9.3 % (0-4); Lymphocytes # 0.6 K/mcL (0.6-4.6); Mean Corpuscular HGB Conc 30.4 g/dL (31.6-35.5); Mean Corpuscular Hemoglobin 31.1 pg (28.0-33.3); Mean Corpuscular Volume 102.5 fL (83.0-100.0); Mean Platelet Volume 9.8 fL (9.4-12.4); Monocytes # 0.5 K/mcL (0.0-1.3); Monocytes % 6.8 %; Neutrophils # 5.1 K/mcL (1.6-8.9); Nucleated Red Blood Cells 3.3 /100 WBC (0); Platelet Count 151 K/mcL (140-400); Red Blood Count 2.44 M/mcL (3.82-4.97); Red Cell Distribution Width 19.8 % (11.5-14.5); Segmented Neutrophils % 74.5 %; White Blood Count 6.9 K/mcL (4.3-11.1)
[2019-03-04 04:07] LABS: Calcium 9.7 mg/dL (8.6-10.3); Potassium 4.6 mEq/L (3.5-5.1)
[2019-03-04 04:14] LABS: Platelet Estimate Slight Decrease (Normal)
[2019-03-04] MEDS: *HR* HYDROcodone/Acet 5/325 mg TABLET PO PRN ×2 (05:34→17:45)
[2019-03-04] MEDS: Tiotropium 18 MCG inhalation IH SCH (07:05)
[2019-03-04] MEDS: Insulin LISPRO 300 UNITS/3 ML VIAL SQ SCH ×4 (08:05→23:13)
[2019-03-04] MEDS: Gabapentin 300 MG CAPSULE PO SCH ×2 (08:20→20:28)
[2019-03-04] MEDS: Aspirin Enteric Coated 81 MG Tablet PO SCH (08:20)
[2019-03-04] MEDS: Insulin DETEMIR 100 UNIT/ML X5UNITS SQ SCH (08:20)
[2019-03-04] MEDS: predniSONE 20 MG TABLET PO SCH (08:21)
[2019-03-04] MEDS: hydrOXYzine pamoate 25 MG CAPSULE PO SCH ×3 (08:22→20:28)
[2019-03-04] MEDS: Magnesium Oxide 400 MG TABLET PO SCH (08:22)
[2019-03-04] MEDS: Ertapenem 1,000 MG in 0.9 % Sodium Chloride Mini Bag 100 ML IVPB SCH (08:22)
[2019-03-04] MEDS: amLODIPine 5 MG TABLET PO SCH (10:05)
--- NOTE | 2019-03-04 11:31 | Internal Med Progress Note ---
Hospitalist Progress Note - Encounter Date of Encounter: 03/04/19 Time of Encounter: 11:27 - Subjective Interval History: Patient seen and examined at bedside. Patient resting in bed and saturating well on 3L NC, however noted to required higher dose of oxygen overnight. Denies any cough, sob, fever, or chills at this time. Ten point ROS is negative except as listed above - Exam Vitals: Temp Pulse Resp BP Pulse Ox 97.7 F 84 18 143/83 90 03/04/19 10:50 03/04/19 10:50 03/04/19 10:50 03/04/19 10:50 03/04/19 10:50 Exam: General: No acute distress, AAO x 3 HEENT: EOMI, NC/AT, no scleral icterus Respiratory: Equal air entry bilaterally, no wheezing, no rales Cardiovascular: Regular Rhythm, sinus tachycardia, + murmur GI: Soft, Non tender, non distended, normal bowel sounds Ext: No edema, no tenderness, positive pulses, arthritic deformities in bilateral hands Neuro: AAO x 3, no focal deficits Rest of the clinical exam is noncontributory - Summary of Assessment and Plan Summary of Assessment and Plan: Ms. Valentino is a 63 year old female with PMH of COPD on home oxygen (2.5-3L NC), severe aortic stenosis, preserved EF heart failure, RA, HTN, anxiety, autoimmune disorder, dialysis dependent MATEUS-now resolved, who was transferred from [facility] for further management of symptomatic anemia. Assessment/Plan: 1. Symptomatic anemia s/p two unit PRBC transfusion on 02/26/19 Repeat H&H within acceptable range s/p EGD and colonoscopy, no acute bleeding reported on Prednisone 60mgPO qdaily due to concern for autoimmune hemolytic anemia iron studies consistent with anemia of chronic disease B12 and folate within normal limits will closely monitor H&H awaiting hematology input on bone marrow biopsy (inpatient vs. outpatient) Hematology follow up requested in regards to bone marrow biopsy and duration of prednisone 60mg PO qdaily 2. Elevated TNI likely demand ischemia in the setting of acute on chronic anemia will trend serial TNI no chest pain reported throughout the hospital course. No EKG changes concerning for ischemia reported. continue tele monitoring 2D echo reporting LVEF of 60% no intervention recommended by cardiology, outpatient follow up recommended for close monitoring of Aortic Stenosis 3. Chronic respiratory failure secondary to underlying COPD not in acute exacerbation continue O2 support and bronchodilator support as needed closely monitor O2 saturation currently saturating well on baseline home oxygen (2-3L), will obtain CXR due to noted increase in O2 demand goal O2 sat: 88-92% 4. HTN remains hypertensive will add Amlodipine 5mg PO qdaily will closely monitor BP and adjust BP meds as needed 5. hx of CHF continue home meds no clinical evidence of CHF exacerbation 2D echo reviewed 6. Chronic pain:continue necessary home medications 7. MATEUS likely prerenal given severe anemia vs hypertension aggressive BP control will closely monitor hold all nephrotoxic agents at this time 8. Hyperglycemia Likely secondary to steroid therapy HbA1C: 5.5 continue Levemir 10units sq qdaily continue sliding scale insulin algorithm monitor fingerstick and blood glucose will start ADA diet 9. UTI given asymptomatic clinical status, will treat for a total of three days Ertapenem 1gm IV qdaily based on urine culture results (Day 3) DVT ppx: SCDs. PT eval recommending SNF placement, case management on board for placement Care plan discussed with patient/RN/pharmacist/case management/consulting provider - Time Spent with Patient Total time spent is greater than 50% in coordination of care (as documented) at patient's floor/unit and/or counseling patient: Internal Medicine: Result - Labs CBC & Chem 7: 03/04/19 03:23 03/04/19 03:23 Labs: Short CBC 03/04/19 Range/Units 03:23 WBC 6.9 (4.3-11.1) K/mcL Hgb 7.6 L (11.5-15.4) g/dL Hct 25.0 L (35.3-44.9) % Plt Count 151 (140-400) K/mcL Neutrophils # 5.1 (1.6-8.9) K/mcL BMP 03/04/19 03:23 Sodium 145 Potassium 4.6 Chloride 105 Carbon Dioxide 30 H BUN 30 H Creatinine 1.33 H Glucose 163 H Calcium 9.7 Consult Discharge Plan - Plan Referrals: Sammi Noyola [Primary Care Provider] -
--- NOTE | 2019-03-04 13:23 | Oncology Inp Progress Note ---
<Chasity Otoole - Last Filed: 03/04/19 13:20> Date of Encounter: 03/04/19 Time of Encounter: 12:45 (1) Anemia Current Visit: No Status: Acute Assessment and plan: 1. Macrocytic anemia at least since December 2018. I do not have any previous values to compare with. Hemoglobin used to be around 8-8.5. MCV 100. She is hospitalized with 5.7 hemoglobin. With transfusion and it came up. LDH elevated to 420. But Arcelia direct test negative Ferritin high at 720. B12 folate TSH normal. Serum protein electrophoresis negative. Light chains mildly elevated around 10 with normal ratio. Most likely this is polyclonal. Check urine for Bence-Lozada protein CT abdomen and pelvis 02/28/2019 was negative. No hepatosplenomegaly. EGD and colonoscopy 02/28/2019 Dr. Gibbs negative other than mild antral gastritis and 2 small polyps about 2 mm. Await pathology At this time the differential for macrocytic anemia includes autoimmune versus myelodysplastic syndrome. She is on prednisone 60 mg daily. If she does not have adequate response would consider bone marrow biopsy Consult to IR for Bone marrow aspirate and biopsy ordered and planned for 03/05/19 NPO at midnight (orders placed) Likely autoimmune disorder. Would benefit from rheumatology consult Dr. Carrillo. She has elevated JAY of 1:640 and positive double-stranded DNA. Also positive lupus anticoagulant. We will repeat lupus anticoagulant. I do not see rheumatoid factor and we will order one Consult to Rheumatology (Dr. Carrillo). Discussed and will try to review chart or see patient this evening. Qualifiers: Anemia type: iron deficiency Iron deficiency anemia type: other iron deficiency Qualified Code(s): D50.8 - Other iron deficiency anemias Oncology: Subj Interval history: Jenny is awake, sitting up in bed this afternoon. She states that she just finished her lunch. She c/o fatigue and persistent weakness. She notes that she is to be discharged to [place] tomorrow morning to an ECF. She denies fever or chills. Denies nausea, vomiting, constipation, diarrhea, or abdominal pain. She notes that she did work with therapy earlier today. Discussed plan for bone marrow biopsy tomorrow morning. She is in agreement with procedure. - Constitutional General appearance: cooperative, no acute distress, thin - Respiratory Respiratory exam: Present: decreased breath sounds, CTAB - Cardiovascular Cardiovascular exam: Present: RRR - GI/Abdominal GI/Abdominal exam: Present: soft. Absent: tenderness - Extremities Exam Extremities exam: Present: normal capillary refill, normal inspection. Absent: calf tenderness, joint swelling, pedal edema, tenderness - Neurological Exam Neurological exam: Present: oriented X3. Absent: facial droop, speech deficit - Psychiatric Psychiatric exam: Present: normal affect, normal mood - Skin Skin exam: Present: dry, pallor Oncology: Obj Data - Labs CBC & Chem 7: 03/04/19 03:23 03/04/19 03:23 Consult Discharge Plan - Plan Referrals: Sammi Noyola [Primary Care Provider] - Inpatient Charges Provider: Dr. Fran Phan <Alba Phan S - Last Filed: 03/04/19 17:51> Date of Encounter: 03/04/19 (1) Autoimmune hemolytic anemia Current Visit: Yes Status: Acute (2) MATEUS (acute kidney injury) Current Visit: No Status: Acute (3) Lupus anticoagulant positive Current Visit: No Status: Acute Oncology: Obj Data - Labs CBC & Chem 7: 03/04/19 03:23 03/04/19 03:23 Inpatient Charges Provider: Dr. Fran Phan Follow up - Inpatient: 13300 - Attending Attestation I examined this patient and my medical decision-making was reviewed with the Advanced Practice Nurse. I agree with the documented findings, disposition and treatment plan as described except to the extent set forth below. 1. Progressive macrocytic anemia. Bone marrow biopsy planned for tomorrow. She is on prednisone 60 mg today. Hemoglobin currently stable around 7.6. Workup showed elevated ferritin. B12 folate TSH unremarkable. EGD and colonoscopy negative. CT abdomen negative. Start tapering prednisone after 2 weeks to 40 mg daily. 2. Elevated JAY and posterior double-stranded DNA. Appreciate Dr. Carrillo input. She has been on low-dose prednisone 5 mg a day for several months
[2019-03-04] MEDS ORDERED: levoFLOXacin 750 MG/150 ML 750 MG/150 ML BAG IVPB SCH (15:16)
--- NOTE | 2019-03-04 17:48 | Rheumatology Consult Note ---
Date of Encounter: 03/04/19 Time of Encounter: 17:20 Rheumatology Assess and Plan (1) Macrocytic anemia Current Visit: Yes Status: Acute - Worsening anemia, macrocytic. Review of labs in ecw, scanned in document with a normal Hb 12 in 04/06. - While she has a positive JAY, her dsDNA (immunofluorescence), MEENA panel were negative. repeat lupus anticoagulant negative, other APLS labs negative as well as recent biopsy. I cannot entirely confirm that her clinical history is diagnostic of an obvious autoimmune connective tissue disease. - She has a poorly described history of an inflammatory arthritis and chronic prednisone use, but I have had difficulty confirming that this was rheumatoid arthritis. - I discussed the plan with hematology and agree with further investigation with bone marrow biopsy. - Will await results. (2) JAY positive Current Visit: Yes Status: Acute Rheumatology HPI Consult date: 03/04/19 Requesting physician: Alba Phan Consult reason: Anemia Chief complaint: Anemia History of present illness: Ms. Valentino is a 63 year old female with PMH of OA, bicuspid aortic valve, osteoporosis, COPD, HTN who presents to [facility] with anemia. Patient and sister are present today. She felt she was having worsening shortness of breath, but was weak and not making sense. She was found to have a Hb < 6. She was transfused blood. Had upper and lower scopes without signs of bleeding. She was started on prednisone 60 mg for concern of autoimmune hemolytic anemia. SARIAH negative, haptoglobin normal, ferritin elevated, B12 and folate normal. At last hospitalization, she had AKD requiring HD. She had a renal biopsy consistent with ATN and recovered. dsDNA, MEENA panel were negative. I could not find convincing evidence for lupus-like activity other than an JAY. Currently, she reports shortness of breath worse than at home; mild exertion worsens this. No swelling of joints, no rashes. Past Med Surg Social Fam HX - Past Medical History Medical history: arthritis, CHF, COPD, coronary artery disease, GERD, hyperlipidemia, hypertension, valvular heart disease Psychiatric history: bipolar, depression - Past Surgical History Surgical History: AICD, pacemaker Additional surgical history: "Open heart surgery" in 2017 - Social History Smoking Status: Never smoker Smokeless Tobacco Status: No Alcohol use: none Drug use: none - Family History Mother Hx Family Cardiac Disorders: Yes (CHF) Father Hx Family Cancer: Yes (lung) Medications and Allergies Albuterol Neb [Proventil Neb] 2.5 mg IH Q4-6H PRN 01/01/19 [History] Albuterol Sulfate [Proventil Inhaler] 2 puff IH Q4HR PRN 01/01/19 [History] Aspirin [Adult Aspirin Regimen] 81 mg PO DAILY 01/01/19 [History] Atorvastatin [Lipitor] 20 mg PO HS 01/01/19 [History] Buspirone HCl [Buspar] 7.5 mg PO BID 01/01/19 [History] Cholecalciferol (Vitamin D3) [Vitamin D3] 50,000 unit PO MO 01/01/19 [History] DULoxetine [Cymbalta] 40 mg PO HS 01/01/19 [History] Gabapentin [Neurontin] 300 mg PO BID 01/01/19 [History] Magnesium Oxide [Magnesium] 400 mg PO DAILY 01/01/19 [History] Metoprolol [Lopressor] 37.5 mg PO BID 01/01/19 [History] Omeprazole [PriLOSEC] 40 mg PO DAILY 01/01/19 [History] Promethazine [Phenergan] 12.5 mg PO Q8HR PRN 01/01/19 [History] Umeclidinium [place] [Incruse Ellipta] 1 puff IH DAILY 01/01/19 [History] hydrOXYzine pamoate [Vistaril] 25 mg PO TID #15 capsule 01/04/19 [Rx] lamoTRIgine [Lamictal] 50 mg PO HS 01/09/19 [History] Calcitriol [Rocaltrol] 0.25 mcg PO DAILY #30 capsule 01/20/19 [Rx] Epoetin [place] [Procrit] 2,500 unit SQ 3XW vial 01/20/19 [Rx] Quetiapine Fumarate [Seroquel] 25 mg PO DAILY #30 tablet 01/20/19 [Rx] predniSONE [PredniSONE] 5 mg PO DAILY 02/27/19 [History] HYDROcodone/Acet 5/325 mg [Moose 5-325 mg] 1 tab PO TID PRN 02/28/19 [History] Allergy/AdvReac Type Severity Reaction Status Date / Time adalimumab [From Humira] Allergy See Verified 02/28/19 14:21 Comments celecoxib Allergy See Verified 02/28/19 14:21 Comments methotrexate Allergy Rash Verified 02/28/19 14:21 All Systems Review: The remainder of the systems were reviewed and are negative Review of Systems: General - no recent weight loss, fevers Eyes - no redness, loss of vision, photophobia ENT - no oral ulcerations, nasal ulcerations, sore throat Cardiovascular - no chest pain, palpitations, lightheadedness, syncope Respiratory - shortness of breath, + difficulty breathing at night, no pleuritic chest pain, + cough Gastrointestinal - no nausea, vomiting, diarrhea Genitourinary - no pain on urination, hematuria Musculoskeletal - +morning stiffness, no joint swelling, + muscle aches, no tendon/ligament swelling or tenderness Integumentary - no easy bruising, rashes, hives, photosensitivity Neurological - + muscle weakness, no paresthesias Hematologic/lymphatic - no tender or swollen glands, + history of anemia, no b lood clots Rheumatology Exam Vital Signs, Last 4 Hours Temp Pulse Resp BP Pulse Ox 03/04/19 15:44 97.9 F 84 18 147/80 91 Exam: General - Alert and oriented x 3, no acute distress and appears comfortable HEENT - Conjunctiva clear, no alopecia or hair thinning, no facial rash, no nasal or oral mucosal lesions/ulcerations Heme/Lymph - No cervical or supraclavicular lymph node enlargement or tenderness. No pallor. Heart - S1S2 regular in rate and rhythm without murmurs, clicks or rubs. No peripheral edema. Lungs - Unlabored breathing, clear to auscultation bilaterally without wheezes or crackles; no decrease in chest expansion Gastrointestinal - Soft, nontender, nondistended. Unable to palpate any hepatosplenomegaly Skin - No nodules, tophi, psoriasis, erythema, malar rash, telangiectasias, sclerodactyly, digital ulcers, induration Neurological - Gait not assessed as in bed, muscle strength 5/5 in all four extremities Musculoskeletal - Full ROM, no synovitis, no joint tenderness, no tenderness to palpation of spine. Rheumatology Results 03/04/19 03:23 03/04/19 03:23 Immunology 03/02/19 04:07 Cycl Citrul Peptide IgG 16 All other labs normal. Consult Discharge Plan - Plan Referrals: Sammi Noyola [Primary Care Provider] -
[2019-03-04] MEDS: Albuterol 2.5 MG/3 ML NEBULIZER IH PRN (18:32)
[2019-03-04] MEDS: lamoTRIgine 100 MG TABLET PO SCH (20:28)
[2019-03-05] MEDS: *HR* HYDROcodone/Acet 5/325 mg TABLET PO PRN ×2 (05:08→14:34)
[2019-03-05 05:25] LABS: Basophils # 0.1 K/mcL (0.0-0.2); Basophils % 0.7 %; Hematocrit 23.7 % (35.3-44.9); Hemoglobin 7.4 g/dL (11.5-15.4); Immature Granulocytes % 9.5 % (0-4); Lymphocytes # 0.8 K/mcL (0.6-4.6); Lymphocytes % 10.7 %; Mean Corpuscular HGB Conc 31.2 g/dL (31.6-35.5); Mean Corpuscular Hemoglobin 31.2 pg (28.0-33.3); Mean Platelet Volume 9.7 fL (9.4-12.4); Monocytes # 0.5 K/mcL (0.0-1.3); Monocytes % 6.4 %; Neutrophils # 5.1 K/mcL (1.6-8.9); Nucleated Red Blood Cells 3.4 /100 WBC (0); Platelet Count 162 K/mcL (140-400); Red Blood Count 2.37 M/mcL (3.82-4.97); Red Cell Distribution Width 19.9 % (11.5-14.5); Segmented Neutrophils % 72.7 %
[2019-03-05 05:36] LABS: BUN/Creatinine Ratio 29 (6-26); Blood Urea Nitrogen 30 mg/dL (8-23); Calcium 9.4 mg/dL (8.6-10.3); Carbon Dioxide 30 mEq/L (23-29); Chloride 105 mEq/L (98-107); Glucose 120 mg/dL (70-105); Magnesium 1.7 mg/dL (1.6-2.6); Osmolality,Calculated 303 (280-300); Phosphorous 3.6 mg/dL (2.7-4.5); Potassium 4.4 mEq/L (3.5-5.1); Sodium 143 mEq/L (136-145); eGFR For African Americans > 60 (> 60); eGFR For Non-African Americans 53 (> 60)
[2019-03-05 05:37] LABS: Complement C3 152 mg/dL (87-200)
[2019-03-05 06:04] LABS: Anisocytosis 1+ (Not Present); Hypochromasia Present (Not Present); Platelet Estimate Normal (Normal)
[2019-03-05] MEDS ORDERED: *HR* Midazolam HCl 2 MG/2 ML VIAL IVP ONE (08:26)
[2019-03-05] MEDS ORDERED: *HR* FentaNYL (PF) 100 MCG/2 ML VIAL IVP ONE (08:26)
--- NOTE | 2019-03-05 08:28 | Pre-Sedation Evaluation ---
Pre-sedation evaluation - Pre-sedation checklist Procedure: renal biopsy Recent Vitals: Last Vital Signs Temp 97.8 F 03/05/19 07:11 Pulse 92 03/05/19 07:11 Resp 20 03/05/19 07:11 BP 161/75 03/05/19 07:11 Pulse Ox 98 03/05/19 07:11 H&P (including ROS) documented in medical record: Yes Previous reaction to sedatives/anesthetics: No Dietary Status: NPO after Midnight Dentition: dentures removed ASA Classification *see protocol: CLASS II-Mild systemic disease Plan of Care: Pt appropriate candidate for procedure/moderate/conscious sedation, Risks/benefits of procedure/sedation discussed w/ patient/family
[2019-03-05] MEDS ORDERED: Furosemide 20 MG/2 ML VIAL IVP ONE (08:29)
--- NOTE | 2019-03-05 08:33 | Internal Med Progress Note ---
Hospitalist Progress Note - Encounter Date of Encounter: 03/05/19 Time of Encounter: 08:31 - Subjective Interval History: Patient with some shortness of breath. On simple mask. Hemoglobin stable from yesterday. Going for bone marrow biopsy today. - Exam Vitals: Temp Pulse Resp BP Pulse Ox 97.8 F 92 20 161/75 98 03/05/19 07:11 03/05/19 07:11 03/05/19 07:11 03/05/19 07:11 03/05/19 07:11 Exam: General: Ill-appearing and in no acute distress HEENT: No erythema of posterior pharynx. No exudates. Lymphatics: No mandibular or cervical lymphadenopathy Cardiovascular: RRR. No murmurs. No chest wall tenderness. Lungs: Bi-basilar crackles. Regular chest rise. Abdomen: Non-tender. No rebound or gaurding. Nl bowel sounds. Extremities: No edema. 2+ pulses radial and pedal pulses Skin: No rahses, abrasions, or contusions. Nl cap refill. Psych: Nl attention. A&Ox3 Neuro: material handling equipment stevedore II-XII intact. 5/5 strength. Sensation to light touch and pinprick intact. - Assessment and Plan (1) Symptomatic anemia Current Visit: Yes Status: Acute Assessment and Plan: Patient with history of severe aortic stenosis, CKD, and RA presents with symptomatic normocytic/macrocytic anemia of unclear etiology status post unrevealing GI workup, iron studies consistent with anemia of chronic disease, and normal B12/folate -Concern for autoimmune hemolytic anemia so currently on prednisone 60 mg daily as recommended by hematology -Undergoing pulmonary biopsy today for further workup PLAN: - Bone marrow biopsy today - Trend H&H - Continue prednisone 60 mg daily - will discuss duration of treatment with hematology (2) Acute and chronic respiratory failure with hypoxia Current Visit: Yes Status: Acute Assessment and Plan: History of chronic respiratory failure secondary to COPD on 3 L oxygen outp atient. -Currently on 5 L. -Chest x-ray with concerns for hypervolemia. -History of diastolic heart failure, however, not on diuretics outpatient -Hypervolemia may be secondary to volume from multiple transfusions -Started on levofloxacin for pneumonia but no signs of infection currently PLAN: - Lasix 20 mg IV 1 - DC levofloxacin - Continue home inhalers (3) COPD (chronic obstructive pulmonary disease) Current Visit: No Status: Acute (4) Hypervolemia Current Visit: Yes Status: Acute Assessment and Plan: See above (5) Diastolic heart failure Current Visit: No Status: Acute Assessment and Plan: See above (6) Acute renal failure Current Visit: No Status: Acute Assessment and Plan: Secondary to anemia and presentation. No improvement to baseline (7) CKD (chronic kidney disease) stage 3, GFR 30-59 ml/min Current Visit: Yes Status: Acute Assessment and Plan: See above (8) Hypertension Current Visit: No Status: Chronic Assessment and Plan: Currently controlled DVT Prophylaxis: Restart after bone marrow biopsy today - Time Spent with Patient Total time spent is greater than 50% in coordination of care (as documented) at patient's floor/unit and/or counseling patient: Greater than 35 minutes Plan of Care Discussed with: patient Internal Medicine: Result - Labs CBC & Chem 7: 03/05/19 04:07 03/05/19 04:07 Labs: Short CBC 03/05/19 Range/Units 04:07 WBC 7.0 (4.3-11.1) K/mcL Hgb 7.4 L (11.5-15.4) g/dL Hct 23.7 L (35.3-44.9) % Plt Count 162 (140-400) K/mcL Neutrophils # 5.1 (1.6-8.9) K/mcL BMP 03/05/19 04:07 Sodium 143 Potassium 4.4 Chloride 105 Carbon Dioxide 30 H BUN 30 H Creatinine 1.05 Glucose 120 H Calcium 9.4 - Impressions Impressions Chest X-Ray 03/04/19 11:25 IMPRESSION: Patchy airspace opacities bilaterally, may be related to pulmonary edema versus pneumonia, mildly improved. Stable cardiomegaly. D/ / Chacho Hunt MD / Chacho Hunt MD Interpreting Provider: Chacho Hunt MD Consult Discharge Plan - Plan Referrals: Sammi Noyola [Primary Care Provider] - (3) COPD (chronic obstructive pulmonary disease) Qualifiers: COPD type: unspecified COPD Qualified Code(s): J44.9 - Chronic obstructive pulmonary disease, unspecified (5) Diastolic heart failure Qualifiers: Heart failure chronicity: acute Qualified Code(s): I50.31 - Acute diastolic (congestive) heart failure (6) Acute renal failure Qualifiers: Acute renal failure type: unspecified Qualified Code(s): N17.9 - Acute kidney failure, unspecified (8) Hypertension Qualifiers: Hypertension type: essential hypertension Qualified Code(s): I10 - Essential (primary) hypertension
[2019-03-05] MEDS: Insulin LISPRO 300 UNITS/3 ML VIAL SQ SCH ×4 (08:59→20:45)
[2019-03-05] MEDS: Insulin DETEMIR 100 UNIT/ML X5UNITS SQ SCH (08:59)
[2019-03-05] MEDS ORDERED: levoFLOXacin 750 MG TABLET PO SCH (09:00)
[2019-03-05] MEDS: Aspirin Enteric Coated 81 MG Tablet PO SCH (09:23)
[2019-03-05] MEDS: Gabapentin 300 MG CAPSULE PO SCH ×2 (09:23→20:44)
[2019-03-05] MEDS: amLODIPine 5 MG TABLET PO SCH (09:23)
[2019-03-05] MEDS: predniSONE 20 MG TABLET PO SCH (09:24)
[2019-03-05] MEDS: hydrOXYzine pamoate 25 MG CAPSULE PO SCH ×3 (09:24→20:44)
[2019-03-05] MEDS: Magnesium Oxide 400 MG TABLET PO SCH (09:24)
[2019-03-05 09:26] LABS: INR 1.2; Prothrombin Time 13.3 Seconds (9.4-12.1)
[2019-03-05] MEDS ORDERED: 0.9 % Sodium Chloride 500 ML ONE (10:16)
[2019-03-05] MEDS: Tiotropium 18 MCG inhalation IH SCH (11:37)
--- NOTE | 2019-03-05 12:20 | Oncology Inp Progress Note ---
<Chasity Otoole - Last Filed: 03/05/19 16:14> Date of Encounter: 03/05/19 Time of Encounter: 11:30 (1) Anemia Current Visit: No Status: Acute Assessment and plan: 1. Macrocytic anemia at least since December 2018. I do not have any previous values to compare with. Hemoglobin used to be around 8-8.5. MCV 100. She is hospitalized with 5.7 hemoglobin. With transfusion and it came up. LDH elevated to 420. But Arcelia direct test negative Ferritin high at 720. B12 folate TSH normal. Serum protein electrophoresis negative. Light chains mildly elevated around 10 with normal ratio. Most likely this is polyclonal. Check urine for Bence-Lozada protein CT abdomen and pelvis 02/28/2019 was negative. No hepatosplenomegaly. EGD and colonoscopy 02/28/2019 Dr. Gibbs negative other than mild antral gastritis and 2 small polyps about 2 mm. Await pathology At this time the differential for macrocytic anemia includes autoimmune versus myelodysplastic syndrome. She is on prednisone 60 mg daily. If she does not have adequate response would consider bone marrow biopsy Likely autoimmune disorder. Would benefit from rheumatology consult Dr. Carrillo. She has elevated JAY of 1:640 and positive double-stranded DNA. Also positive lupus anticoagulant. We will repeat lupus anticoagulant. I do not see rheumatoid factor and we will order one Plan: BMA and biopsy done 03/05/19. Patient will need an appointment with Dr. Guzman at [facility] to review the results of the procedure (approximately 2 weeks). Qualifiers: Anemia type: iron deficiency Iron deficiency anemia type: other iron deficiency Qualified Code(s): D50.8 - Other iron deficiency anemias Oncology: Subj Interval history: Jenny has returned to the floor following her bone marrow aspirate and biopsy this morning. She notes feeling tired and wanting to sleep. She denies questions or concerns. Discussed need for follow-up as an outpatient at the [facility] for the biopsy results. She verbalizes acceptance. She notes that she has not decided which ECF she will be going to for rehabilitation, but will choose soon for discharge planning and scheduling follow-up. - Constitutional General appearance: cooperative, no acute distress - Respiratory Respiratory exam: Present: decreased breath sounds - Cardiovascular Cardiovascular exam: Present: RRR - GI/Abdominal GI/Abdominal exam: Present: soft. Absent: tenderness - Extremities Exam Extremities exam: Present: normal inspection. Absent: pedal edema, tenderness - Neurological Exam Neurological exam: Present: alert, oriented X3. Absent: facial droop, speech deficit - Psychiatric Psychiatric exam: Present: normal affect, normal mood - Skin Skin exam: Present: pallor Oncology: Obj Data - Labs CBC & Chem 7: 03/05/19 04:07 03/05/19 04:07 Consult Discharge Plan - Plan Referrals: Sammi Noyola [Primary Care Provider] - Inpatient Charges Provider: Dr. Fran Phan <Alba Phan S - Last Filed: 03/06/19 08:28> Date of Encounter: 03/05/19 (1) Autoimmune hemolytic anemia Current Visit: Yes Status: Acute (2) MATEUS (acute kidney injury) Current Visit: No Status: Acute (3) Lupus anticoagulant positive Current Visit: No Status: Acute Oncology: Obj Data - Labs CBC & Chem 7: 03/06/19 04:27 03/06/19 04:27 Inpatient Charges Provider: Dr. Fran Phan Follow up - Inpatient: [id number] - Attending Attestation I examined this patient and my medical decision-making was reviewed with the Advanced Practice Nurse. I agree with the documented findings, disposition and treatment plan as described except to the extent set forth below. 1. Macrocytic anemia. She is on prednisone 60 mg daily for possible hemolysis. LDH elevated at 430 range but Arcelia test negative. Bone marrow biopsy performed awaiting results. Ferritin elevated around 700. B12 folate and TSH unremarkable. Start tapering prednisone after 2 weeks of 60 mg daily dose 2. Hemoglobin currently between 7-7.5. Consider packed RBC transfusion if hemoglobin drops below 7
[2019-03-05 13:24] LABS: Urine Collection Volume RANDOM mL
[2019-03-05] MEDS: Albuterol 2.5 MG/3 ML NEBULIZER IH PRN (20:20)
[2019-03-05] MEDS: lamoTRIgine 100 MG TABLET PO SCH (20:44)
[2019-03-06 05:14] LABS: Hematocrit 23.5 % (35.3-44.9); Hemoglobin 7.1 g/dL (11.5-15.4); Mean Corpuscular HGB Conc 30.2 g/dL (31.6-35.5); Mean Corpuscular Hemoglobin 30.7 pg (28.0-33.3); Mean Corpuscular Volume 101.7 fL (83.0-100.0); Mean Platelet Volume 9.7 fL (9.4-12.4); Platelet Count 159 K/mcL (140-400); Red Blood Count 2.31 M/mcL (3.82-4.97); Red Cell Distribution Width 19.5 % (11.5-14.5); White Blood Count 5.4 K/mcL (4.3-11.1)
[2019-03-06 05:35] LABS: BUN/Creatinine Ratio 29 (6-26); Blood Urea Nitrogen 29 mg/dL (8-23); Calcium 9.4 mg/dL (8.6-10.3); Carbon Dioxide 34 mEq/L (23-29); Chloride 101 mEq/L (98-107); Glucose 130 mg/dL (70-105); Osmolality,Calculated 308 (280-300); Potassium 4.4 mEq/L (3.5-5.1); Sodium 145 mEq/L (136-145); eGFR For African Americans > 60 (> 60); eGFR For Non-African Americans 56 (> 60)
[2019-03-06] MEDS: Albuterol 2.5 MG/3 ML NEBULIZER IH PRN (07:14)
[2019-03-06] MEDS: Tiotropium 18 MCG inhalation IH SCH (07:14)
[2019-03-06] MEDS: Aspirin Enteric Coated 81 MG Tablet PO SCH (08:09)
[2019-03-06] MEDS: Gabapentin 300 MG CAPSULE PO SCH ×2 (08:09→20:31)
[2019-03-06] MEDS: amLODIPine 5 MG TABLET PO SCH (08:09)
[2019-03-06] MEDS: Insulin LISPRO 300 UNITS/3 ML VIAL SQ SCH ×4 (08:09→20:32)
[2019-03-06] MEDS: hydrOXYzine pamoate 25 MG CAPSULE PO SCH ×3 (08:09→20:31)
[2019-03-06] MEDS: predniSONE 20 MG TABLET PO SCH (08:10)
[2019-03-06] MEDS: Magnesium Oxide 400 MG TABLET PO SCH (08:10)
[2019-03-06] MEDS ORDERED: Furosemide 20 MG TABLET PO SCH (09:00)
[2019-03-06] MEDS ORDERED: Furosemide 40 MG/4 ML VIAL IVP SCH (09:00)
[2019-03-06] MEDS: *HR* HYDROcodone/Acet 5/325 mg TABLET PO PRN ×2 (09:27→20:30)
[2019-03-06] MEDS: Insulin DETEMIR 100 UNIT/ML X5UNITS SQ SCH (09:28)
--- NOTE | 2019-03-06 13:50 | Internal Med Progress Note ---
Hospitalist Progress Note - Encounter Date of Encounter: 03/06/19 Time of Encounter: 13:48 - Subjective Interval History: Feeling subjectively improved with diuresis yesterday. Still above her baseline with regards to oxygen need. - Exam Vitals: Temp Pulse Resp BP Pulse Ox 98.4 F 109 73 99/65 96 03/06/19 10:47 03/06/19 08:07 03/06/19 10:47 03/06/19 10:47 03/06/19 10:47 Exam: General: Ill-appearing and in no acute distress HEENT: No erythema of posterior pharynx. No exudates. Lymphatics: No mandibular or cervical lymphadenopathy Cardiovascular: RRR. No murmurs. No chest wall tenderness. Lungs: Bi-basilar crackles. Regular chest rise. Abdomen: Non-tender. No rebound or gaurding. Nl bowel sounds. Extremities: No edema. 2+ pulses radial and pedal pulses Skin: No rahses, abrasions, or contusions. Nl cap refill. Psych: Nl attention. A&Ox3 Neuro: algologist II-XII intact. 5/5 strength. Sensation to light touch and pinprick intact. - Assessment and Plan (1) Symptomatic anemia Current Visit: Yes Status: Acute Assessment and Plan: Patient with history of severe aortic stenosis, CKD, and RA presents with symptomatic normocytic/macrocytic anemia of unclear etiology status post unrevealing GI workup, iron studies consistent with anemia of chronic disease, and normal B12/folate -Concern for autoimmune hemolytic anemia so currently on prednisone 60 mg daily as recommended by hematology -Underwent bone marrow biopsy yesterday. Results can be followed up as an outpatient. -Hemoglobin borderline around 7. We will give 1 unit before patient is discharged from the hospital PLAN: - Follow up bone marrow biopsy results as an outpatient - Trend H&H - Continue prednisone 60 mg daily - will discuss duration of treatment with hematology (2) Acute and chronic respiratory failure with hypoxia Current Visit: Yes Status: Acute Assessment and Plan: History of chronic respiratory failure secondary to COPD on 3 L oxygen outpatient. -Currently on 5 L. -Chest x-ray with concerns for hypervolemia. -History of diastolic heart failure, however, not on diuretics outpatient -Hypervolemia may be secondary to volume from multiple transfusions -Started on levofloxacin for pneumonia but no signs of infection currently PLAN: - Lasix 20 mg IV 1 - DC levofloxacin - Continue home inhalers (3) COPD (chronic obstructive pulmonary disease) Current Visit: No Status: Acute (4) Hypervolemia Current Visit: Yes Status: Acute (5) Diastolic heart failure Current Visit: No Status: Acute (6) Acute renal failure Current Visit: No Status: Acute (7) CKD (chronic kidney disease) stage 3, GFR 30-59 ml/min Current Visit: Yes Status: Acute (8) Hypertension Current Visit: No Status: Chronic - Time Spent with Patient Total time spent is greater than 50% in coordination of care (as documented) at patient's floor/unit and/or counseling patient: Internal Medicine: Result - Labs CBC & Chem 7: 03/06/19 04:27 03/06/19 04:27 Labs: Short CBC 03/06/19 Range/Units 04:27 WBC 5.4 (4.3-11.1) K/mcL Hgb 7.1 L (11.5-15.4) g/dL Hct 23.5 L (35.3-44.9) % Plt Count 159 (140-400) K/mcL BMP 03/06/19 04:27 Sodium 145 Potassium 4.4 Chloride 101 Carbon Dioxide 34 H BUN 29 H Creatinine 1.00 Glucose 130 H Calcium 9.4 - ABG Interpretation ABG results: PT/INR, D-dimer PT 13.3 Seconds (9.4-12.1) H 03/05/19 09:00 Consult Discharge Plan - Plan Referrals: Sammi Nooyla [Primary Care Provider] - (3) COPD (chronic obstructive pulmonary disease) Qualifiers: COPD type: unspecified COPD Qualified Code(s): J44.9 - Chronic obstructive pulmonary disease, unspecified (5) Diastolic heart failure Qualifiers: Heart failure chronicity: acute Qualified Code(s): I50.31 - Acute diastolic (congestive) heart failure (6) Acute renal failure Qualifiers: Acute renal failure type: unspecified Qualified Code(s): N17.9 - Acute kidney failure, unspecified (8) Hypertension Qualifiers: Hypertension type: essential hypertension Qualified Code(s): I10 - Essential (primary) hypertension
[2019-03-06] MEDS ORDERED: Furosemide 40 MG/4 ML VIAL IVP ONE ×2 (14:04→20:00)
--- NOTE | 2019-03-06 14:30 | Discharge Summary ---
Orders not resulted at time of discharge: Pending orders 02/26/19 17:45 Occult Blood,Stool [BF] Stat 03/05/19 CT biopsy/asp bone marrow [CT] Routine 03/05/19 10:27 Bone Marrow, Flow & Cytogen Routine 03/06/19 14:01 Red Blood Cells [BBK] Stat Type and Screen [BBK] Stat Date of Encounter: 03/06/19 Time of Encounter: 14:26 - Discharge Diagnosis (1) Symptomatic anemia Priority: Primary Status: Acute (2) Acute and chronic respiratory failure with hypoxia Priority: Secondary Status: Acute (3) Hypervolemia Priority: Secondary Status: Acute Qualifiers: Hypervolemia type: unspecified Qualified Code(s): E87.70 - Fluid overload, unspecified (4) Diastolic heart failure Priority: Secondary Status: Acute Qualifiers: Heart failure chronicity: acute on chronic Qualified Code(s): I50.33 - Acute on chronic diastolic (congestive) heart failure (5) COPD (chronic obstructive pulmonary disease) Priority: Secondary Status: Acute Qualifiers: COPD type: unspecified COPD Qualified Code(s): J44.9 - Chronic obstructive pulmonary disease, unspecified (6) Acute renal failure Priority: Secondary Status: Acute Qualifiers: Acute renal failure type: unspecified Qualified Code(s): N17.9 - Acute kidney failure, unspecified (7) CKD (chronic kidney disease) stage 3, GFR 30-59 ml/min Priority: Secondary Status: Acute (8) Hypertension Priority: Secondary Status: Chronic Qualifiers: Hypertension type: essential hypertension Qualified Code(s): I10 - Es sential (primary) hypertension Hospital course: Ms. Valentino is a 63 year old female with history of severe aortic stenosis, CKD, and RA presented with symptomatic normocytic/macrocytic anemia of unclear etiology status post unrevealing GI workup, iron studies consistent with anemia of chronic disease, and normal B12/folate. Concern for myelodysplastic vs automimmune cause of anemia. Hematology was consulted and bone marrow bx was completed, results of which are pending. Rheumatology was also consulted and recommended getting the BM bx before further w/u of autoimmune cause is considered. She will follow-up with Hematology Dr. Guzman at [facility] in 2 weeks from day of discharge (needs to be scheduled). Was hypervolemic from multiple transfusions during hospital stay so will be discharged on oral lasix. Will need f/u BMP and CBC to follow-up renal function and Hg, respectively. Discharge discussed with: patient - Time Spent with Patient Total time spent providing and/or coordinating discharge services: Time spent: Greater than 30 minutes - Discharge Medications Prescriptions: New predniSONE [PredniSONE] 60 mg PO DAILY #60 tablet Continued Buspirone HCl [Buspar] 7.5 mg PO BID Albuterol Neb [Proventil Neb] 2.5 mg IH Q4-6H PRN PRN Reason: Shortness Of Breath Cholecalciferol (Vitamin D3) [Vitamin D3] 50,000 unit PO MO Aspirin [Adult Aspirin Regimen] 81 mg PO DAILY lamoTRIgine [Lamictal] 50 mg PO HS Epoetin Damion [Procrit] 2,500 unit SQ 3XW vial Calcitriol [Rocaltrol] 0.25 mcg PO DAILY #30 capsule Quetiapine Fumarate [Seroquel] 25 mg PO DAILY #30 tablet HYDROcodone/Acet 5/325 mg [[place] 5-325 mg] 1 tab PO TID PRN PRN Reason: Pain Gabapentin [Neurontin] 300 mg PO BID Metoprolol [Lopressor] 37.5 mg PO BID Omeprazole [PriLOSEC] 40 mg PO DAILY Umeclidinium [place] [Incruse Ellipta] 1 puff IH DAILY Albuterol Sulfate [Proventil Inhaler] 2 puff IH Q4HR PRN PRN Reason: Shortness Of Breath DULoxetine [Cymbalta] 40 mg PO HS Atorvastatin [Lipitor] 20 mg PO HS Magnesium Oxide [Magnesium] 400 mg PO DAILY Promethazine [Phenergan] 12.5 mg PO Q8HR PRN PRN Reason: Nausea hydrOXYzine pamoate [Vistaril] 25 mg PO TID #15 capsule Discontinued predniSONE [PredniSONE] 5 mg PO DAILY Home Medications: Albuterol Neb [Proventil Neb] 2.5 mg IH Q4-6H PRN 01/01/19 [History] Albuterol Sulfate [Proventil Inhaler] 2 puff IH Q4HR PRN 01/01/19 [History] Aspirin [Adult Aspirin Regimen] 81 mg PO DAILY 01/01/19 [History] Atorvastatin [Lipitor] 20 mg PO HS 01/01/19 [History] Buspirone HCl [Buspar] 7.5 mg PO BID 01/01/19 [History] Cholecalciferol (Vitamin D3) [Vitamin D3] 50,000 unit PO MO 01/01/19 [History] DULoxetine [Cymbalta] 40 mg PO HS 01/01/19 [History] Gabapentin [Neurontin] 300 mg PO BID 01/01/19 [History] Magnesium Oxide [Magnesium] 400 mg PO DAILY 01/01/19 [History] Metoprolol [Lopressor] 37.5 mg PO BID 01/01/19 [History] Omeprazole [PriLOSEC] 40 mg PO DAILY 01/01/19 [History] Promethazine [Phenergan] 12.5 mg PO Q8HR PRN 01/01/19 [History] Umeclidinium [place] [Incruse Ellipta] 1 puff IH DAILY 01/01/19 [History] hydrOXYzine pamoate [Vistaril] 25 mg PO TID #15 capsule 01/04/19 [Rx] lamoTRIgine [Lamictal] 50 mg PO HS 01/09/19 [History] Calcitriol [Rocaltrol] 0.25 mcg PO DAILY #30 capsule 01/20/19 [Rx] Epoetin [place] [Procrit] 2,500 unit SQ 3XW vial 01/20/19 [Rx] Quetiapine Fumarate [Seroquel] 25 mg PO DAILY #30 tablet 01/20/19 [Rx] HYDROcodone/Acet 5/325 mg [[place]upiter 5-325 mg] 1 tab PO TID PRN 02/28/19 [History] predniSONE [PredniSONE] 60 mg PO DAILY #60 tablet 03/06/19 [Rx] Allergies/Adverse Reactions: Allergy/AdvReac Type Severity Reaction Status Date / Time adalimumab [From Humira] Allergy See Verified 02/28/19 14:21 Comments celecoxib Allergy See Verified 02/28/19 14:21 Comments methotrexate Allergy Rash Verified 02/28/19 14:21 Date of admission: 02/26/19 18:25 Primary care physician: Sammi Noyola Consults: 02/26/19 17:36 Consult to Cardiology [CONS] Routine Comment: Consulting Provider: Naty Jaramillo Reason for Consult: elevated troponin Call Completed: No Consult to Oncology Hematology [CONS] Routine Consulting Provider: Cornel Guzman Reason for Consult: acute on chronic anemia Call Completed: No 02/26/19 17:37 Consult to Gastroenterology [CONS] Routine Consulting Provider: Gastroenterology Ella Reason for Consult: anemia Call Completed: No 02/27/19 09:47 Consult to Physical Therapy [CONS] Routine Comment: Evaluate, develop and implement POC Reason for Consult: doctor order Does patient have active BEDREST order?: No Is patient medically & hemodynamically stable?: Yes 02/27/19 09:49 Consult to Occupational Therapy [CONS] Routine Comment: Evaluate, develop and implement POC Reason for Consult: doctor order Does patient have active BEDREST order?: No Is patient medically & hemodynamically stable?: Yes 02/28/19 08:05 Consult to [employer] [CONS] Routine Reason for SW Consult: needs ecf 03/04/19 13:10 Consult to Interventional Radiology [CONS] Routine Consulting Provider: Radiology Interventional Cols Reason for Consult: Bone marrow aspirate and biopsy Time Notified: 13:11 Call Completed: Yes 03/04/19 13:14 Consult to Rheumatology [CONS] Routine Consulting Provider: Wellington Carrillo Reason for Consult: rheumatoid arthritis? Macrocytic anemia: question autoimmune vs myelodysplastic Time Notified: 13:16 Call Completed: Yes - Constitutional Vitals: Temp Pulse Resp BP Pulse Ox 98.4 F 109 73 99/65 96 03/06/19 10:47 03/06/19 08:07 03/06/19 10:47 03/06/19 10:47 03/06/19 10:47 Exam: General: Ill-appearing and in no acute distress HEENT: No erythema of posterior pharynx. No exudates. Lymphatics: No mandibular or cervical lymphadenopathy Cardiovascular: RRR. No murmurs. No chest wall tenderness. Lungs: Clear to auscelltation bilaterally. Regular chest rise. Abdomen: Non-tender. No rebound or gaurding. Nl bowel sounds. Extremities: No edema. 2+ pulses radial and pedal pulses Skin: No rahses, abrasions, or contusions. Nl cap refill. Psych: Nl attention. A&Ox3 Neuro: junior data analyst II-XII intact. 5/5 strength. Sensation to light touch and pinprick intact. - Patient Status Disposition: Home, Self-Care Condition: Good Functional capacity at discharge: uses cane/walker Overall status at discharge: patient is progressing back to baseline - Discharge Instructions Follow Up With: Sammi Nooyla [Primary Care Provider] - - Diet and Activity Activity: as per physical therapy Diet: low salt diet
--- NOTE | 2019-03-06 15:29 | Physician Discharge Referral ---
ExtendedCare Referral Info Transfer To: [facility] Facility Provider in Charge: Td Davis MD Provider in Charge after Transfer: Other Institutional Level of Care: Skilled - Diagnosis (1) Symptomatic anemia Status: Acute (2) Acute and chronic respiratory failure with hypoxia Priority: Secondary Status: Acute (3) Hypervolemia Priority: Secondary Status: Acute (4) Diastolic heart failure Priority: Secondary Status: Acute (5) COPD (chronic obstructive pulmonary disease) Priority: Secondary Status: Acute (6) Acute renal failure Priority: Secondary Status: Acute (7) CKD (chronic kidney disease) stage 3, GFR 30-59 ml/min Priority: Secondary Status: Acute (8) Hypertension Priority: Secondary Status: Chronic - Transfer Medications Prescriptions: predniSONE [PredniSONE] 60 mg PO DAILY #60 tablet Home Medications: Albuterol Neb [Proventil Neb] 2.5 mg IH Q4-6H PRN 01/01/19 [History] Albuterol Sulfate [Proventil Inhaler] 2 puff IH Q4HR PRN 01/01/19 [History] Aspirin [Adult Aspirin Regimen] 81 mg PO DAILY 01/01/19 [History] Atorvastatin [Lipitor] 20 mg PO HS 01/01/19 [History] Buspirone HCl [Buspar] 7.5 mg PO BID 01/01/19 [History] Cholecalciferol (Vitamin D3) [Vitamin D3] 50,000 unit PO MO 01/01/19 [History] DULoxetine [Cymbalta] 40 mg PO HS 01/01/19 [History] Gabapentin [Neurontin] 300 mg PO BID 01/01/19 [History] Magnesium Oxide [Magnesium] 400 mg PO DAILY 01/01/19 [History] Metoprolol [Lopressor] 37.5 mg PO BID 01/01/19 [History] Omeprazole [PriLOSEC] 40 mg PO DAILY 01/01/19 [History] Promethazine [Phenergan] 12.5 mg PO Q8HR PRN 01/01/19 [History] Umeclidinium [place] [Incruse Ellipta] 1 puff IH DAILY 01/01/19 [History] hydrOXYzine pamoate [Vistaril] 25 mg PO TID #15 capsule 01/04/19 [Rx] lamoTRIgine [Lamictal] 50 mg PO HS 01/09/19 [History] Calcitriol [Rocaltrol] 0.25 mcg PO DAILY #30 capsule 01/20/19 [Rx] Epoetin [place] [Procrit] 2,500 unit SQ 3XW vial 01/20/19 [Rx] Quetiapine Fumarate [Seroquel] 25 mg PO DAILY #30 tablet 01/20/19 [Rx] HYDROcodone/Acet 5/325 mg [[place] 5-325 mg] 1 tab PO TID PRN 02/28/19 [History] predniSONE [PredniSONE] 60 mg PO DAILY #60 tablet 03/06/19 [Rx] Allergies/Adverse Reactions: Allergy/AdvReac Type Severity Reaction Status Date / Time adalimumab [From Humira] Allergy See Verified 02/28/19 14:21 Comments celecoxib Allergy See Verified 02/28/19 14:21 Comments methotrexate Allergy Rash Verified 02/28/19 14:21 - Respiratory Orders Smoking Cessation: Smoking cessation has been advised. For more information, call the [employer] Tobacco Quit Line at 9-853-WOBS-NOW. - Lab Orders Lab Orders: CBC (03/10), Other (include drug levels w/frequency) ([facility] 03/10) - Advance Directives Living Will: No Power of Pharmacy Technology Instructor for Health Care: No Code Status: Full Code - Mobility Orders Ambulate - Rehabiliation Orders Rehab Potential: Good Rehab Orders: Evaluation for Physical Therapy, Evaluation for Occupational Therapy CERTIFICATION: I certify that the transfer of the above named patient to an Extended Care Facility is necessary for the continuing treatment of the diagnosis listed. The above information is true and accurate reflection of patient's current con dition. Confidential - Redisclosure prohibited without a patient's written consent.
[2019-03-06] MEDS ORDERED: 0.9 % Sodium Chloride 250 ML ONE (16:15)
[2019-03-06] MEDS: lamoTRIgine 100 MG TABLET PO SCH (20:30)
[2019-03-06 23:32] VITALS: BP 135/80
== END 2019-03-06 19:50 | DRG 811 ==
LOC: 2ANU → SUATTDRO 18:25
PROVIDERS: ADMIT Internal Medicine; ATTEND Internal Medicine
PROC: ENDOCBX (2019-02-28 08:00)
PROC: ENDOEBX (2019-02-28 08:00)

== ENCOUNTER 2019-06-15 02:30 | Inpatient (IN) ==
[2019-06-15] MEDS ORDERED: Naloxone 0.4 MG/ML INJ IVP PRN (04:10)
[2019-06-15] MEDS ORDERED: *HR* Dextrose 50 % in Water (Syg) 50 ML SYRINGE IVP PRN (04:17)
[2019-06-15] MEDS ORDERED: D5% in Water 1,000 ML IVC PRN (04:17)
[2019-06-15] MEDS ORDERED: Dextrose Gel 15 GM/37.5 ML TUBE PO PRN ×2 (04:17)
[2019-06-15] MEDS: Norepinephrine 4 MG in 0.9 % Sodium Chloride 250 ML IVC SCH ×2 (05:06→06:38)
[2019-06-15 05:11] LABS: Hematocrit 27.6 % (35.3-44.9); Hemoglobin 8.8 g/dL (11.5-15.4); Mean Corpuscular HGB Conc 31.9 g/dL (31.6-35.5); Mean Corpuscular Hemoglobin 31.2 pg (28.0-33.3); Mean Corpuscular Volume 97.9 fL (83.0-100.0); Mean Platelet Volume 9.5 fL (9.4-12.4); Monocytes # 0.2 K/mcL (0.0-1.3); Nucleated Red Blood Cells 0.4 /100 WBC (0); Platelet Count 121 K/mcL (140-400); Red Blood Count 2.82 M/mcL (3.82-4.97); Red Cell Distribution Width 15.9 % (11.5-14.5); White Blood Count 5.3 K/mcL (4.3-11.1)
[2019-06-15 05:12] LABS: Prothrombin Time 11.7 Seconds (9.4-12.1)
[2019-06-15 05:28] LABS: Albumin 3.6 g/dL (3.5-5.7); Albumin/Globulin Ratio 1.4 (1.1-2.2); Bilirubin,Direct 0.1 mg/dL (0.0-0.2); Bilirubin,Indirect 0.3 mg/dL (0.0-1.0); Bilirubin,Total 0.4 mg/dL (0.3-1.0); Calcium 9.5 mg/dL (8.6-10.3); Globulin 2.6 g/dL (2.4-3.5); Magnesium 1.3 mg/dL (1.6-2.6); Phosphorous 4.5 mg/dL (2.7-4.5); Potassium 5.3 mEq/L (3.5-5.1); Total Protein 6.2 g/dL (6.4-8.9)
[2019-06-15 05:29] LABS: Amphetamine Screen,Urine Negative ng/mL (Cutoff=1000); Barbiturate Screen,Urine Negative ng/mL (Cutoff=200); Benzodiazepines Screen,Urine Negative ng/mL (Cutoff=200); Cannabinoid Screen,Urine Negative ng/mL (Cutoff = 50); Cocaine Screen,Urine Negative ng/mL (Cutoff= 300); Opiate Screen,Urine Positive ng/mL (Cutoff=300); Phencyclidine Screen,Urine Negative ng/mL (Cutoff=25)
[2019-06-15] MEDS ORDERED: Ipratropium/Albuterol Neb 3 ML IH PRN (05:29)
[2019-06-15 05:40] LABS: Lymphocytes # 0.5 K/mcL (0.6-4.6); Neutrophils # 4.6 K/mcL (1.6-8.9); Platelet Estimate Slight Decrease (Normal)
[2019-06-15] MEDS ORDERED: 0.9 % Sodium Chloride 1,000 ML IVC SCH (05:45)
[2019-06-15] MEDS ORDERED: Sennosides 8.6 MG TABLET PO PRN (06:08)
[2019-06-15 06:45] LABS: Bilirubin,Urine Negative (Negative); Blood,Urine Negative (Negative); Clarity,Urine Clear (Clear); Color,Urine Yellow (Yellow); Glucose,Urine (UA) 250 mg/dL (Normal); Ketones,Urine Negative (Negative); Specific Gravity,Urine 1.009 (1.010-1.025)
[2019-06-15 06:46] LABS: Leukocyte Esterase,Urine Trace (Negative); Nitrite,Urine Negative (Negative); Protein,Urine Negative (Neg-Trace); Squamous Epithelial Cell,Urine Moderate per lpf (None-Few); Urobilinogen,Urine Normal (Normal); WBC,Urine 0-3 per hpf (0-3)
[2019-06-15] MEDS: *HR* HYDROcodone/Acet 5/325 mg TABLET PO PRN ×2 (08:24→16:13)
[2019-06-15] MEDS: Insulin LISPRO 300 UNITS/3 ML VIAL SQ SCH ×3 (08:27→17:00)
[2019-06-15] MEDS ORDERED: predniSONE 5 MG TABLET PO SCH (09:00)
[2019-06-15 14:54] LABS: Hematocrit 26.5 % (35.3-44.9); Hemoglobin 8.3 g/dL (11.5-15.4)
[2019-06-15] MEDS: Hydrocortisone Sodium Succ 100 MG/2 ML VIAL IVP SCH ×2 (16:14→23:51)
[2019-06-15] MEDS: *HR* LORazepam 0.5 MG TABLET PO PRN (17:30)
[2019-06-15] MEDS ORDERED: *HR* Heparin 5,000 UNIT/ML VIAL IVP PRN ×2 (18:22)
[2019-06-15] MEDS ORDERED: Heparin 25,000 UNIT/250 ML D5W 25,000 UNIT/250 ML IV.SOLN IVC SCH (18:30)
[2019-06-15] MEDS: hydrOXYzine pamoate 25 MG CAPSULE PO PRN (19:00)
[2019-06-15 19:02] LABS: Hematocrit 29.2 % (35.3-44.9); Hemoglobin 9.1 g/dL (11.5-15.4)
[2019-06-15 19:22] LABS: Calcium 9.4 mg/dL (8.6-10.3); Potassium 5.7 mEq/L (3.5-5.1)
[2019-06-15] MEDS ORDERED: Insulin LISPRO 300 UNITS/3 ML VIAL SQ SCH (21:00)
[2019-06-16] MEDS: hydrOXYzine pamoate 25 MG CAPSULE PO PRN ×2 (01:36→17:56)
[2019-06-16 02:15] LABS: ABG Base Excess -2 mEq/L (-2 to 3); ABG HCO3 28 mEq/L (21-27); ABG Oxygen Saturation 80 % (95-98); ABG PCO2 80 mmHg (35-45); ABG PH 7.15 pH Units (7.32-7.45); ABG PO2 58 mmHg (85-104); ABG TCO2 30 mEq/L (20-26)
[2019-06-16 02:16] LABS: Basophils # 0.1 K/mcL (0.0-0.2); Basophils % 0.8 %; Eosinophils % 0.2 %; Hemoglobin 10.6 g/dL (11.5-15.4); Immature Granulocytes % 4.8 % (0-4); Lymphocytes # 3.8 K/mcL (0.6-4.6); Mean Corpuscular HGB Conc 31.2 g/dL (31.6-35.5); Mean Corpuscular Hemoglobin 31.2 pg (28.0-33.3); Mean Platelet Volume 9.1 fL (9.4-12.4); Monocytes # 1.3 K/mcL (0.0-1.3); Monocytes % 7.1 %; Nucleated Red Blood Cells 0.3 /100 WBC (0); Platelet Count 199 K/mcL (140-400); Red Cell Distribution Width 15.7 % (11.5-14.5); Segmented Neutrophils % 66.1 %
[2019-06-16] MEDS ORDERED: Dexmedetomidine HCl 400 MCG/100 ML MLS IVC ONE (02:18)
[2019-06-16] MEDS ORDERED: Haloperidol Lactate 5 MG/ML VIAL ONE (02:18)
[2019-06-16] MEDS ORDERED: Haloperidol Lactate 5 MG/ML VIAL IVP ONE (02:19)
[2019-06-16] MEDS: Dexmedetomidine HCl 400 MCG/100 ML MLS IVC SCH ×3 (02:20→15:24)
[2019-06-16 02:24] LABS: Neutrophils # 11.8 K/mcL (1.6-8.9); White Blood Count 17.9 K/mcL (4.3-11.1)
[2019-06-16] MEDS ORDERED: Morphine Sulfate 2 MG/ML SYRINGE IVP ONE (02:25)
[2019-06-16 02:34] LABS: Calcium 9.6 mg/dL (8.6-10.3); Magnesium 2.1 mg/dL (1.6-2.6); Potassium 4.8 mEq/L (3.5-5.1)
[2019-06-16] MEDS ORDERED: Furosemide 40 MG/4 ML VIAL IVP ONE (02:42)
[2019-06-16] MEDS ORDERED: Artificial Tears SOLN 15 ML BOTTLE BOTH EYES PRN (02:43)
[2019-06-16] MEDS ORDERED: FentaNYL (PF) 1,000 MCG in 0.9 % Sodium Chloride 80 ML IVC SCH (02:45)
[2019-06-16] MEDS ORDERED: Furosemide 40 MG/4 ML VIAL ONE (02:56)
[2019-06-16] MEDS: Nitroglycerin 25 MG/250 ML INFUS..BTL IVC SCH ×2 (02:59→07:46)
[2019-06-16] MEDS: Furosemide 40 MG/4 ML VIAL IVP SCH ×3 (03:07→21:16)
[2019-06-16] MEDS: Levalbuterol Neb 1.25 MG/3 ML IH SCH ×5 (03:13→22:12)
[2019-06-16] MEDS: Chlorhexidine Rinse 15 ML MOUTHWASH MM SCH ×3 (04:00→21:11)
[2019-06-16] MEDS: Artificial Tears SOLN 15 ML BOTTLE BOTH EYES SCH ×5 (04:00→21:11)
[2019-06-16 04:45] LABS: ABG Base Excess 6 mEq/L (-2 to 3); ABG HCO3 32 mEq/L (21-27); ABG Oxygen Saturation 95 % (95-98); ABG PCO2 49 mmHg (35-45); ABG PH 7.42 pH Units (7.32-7.45); ABG PO2 78 mmHg (85-104); ABG TCO2 33 mEq/L (20-26); Blood Gas Modality AF; Blood Gas VT 380 cc
[2019-06-16 06:51] LABS: Hematocrit 27.7 % (35.3-44.9)
[2019-06-16 06:53] LABS: Hemoglobin 8.8 g/dL (11.5-15.4)
[2019-06-16] MEDS: Insulin LISPRO 300 UNITS/3 ML VIAL SQ SCH ×4 (09:03→21:18)
[2019-06-16] MEDS: Hydrocortisone Sodium Succ 100 MG/2 ML VIAL IVP SCH ×2 (09:04→15:25)
[2019-06-16] MEDS: Pantoprazole 40 MG VIAL IVP SCH (09:04)
[2019-06-16] MEDS: Budesonide/Formoterol 160/4.5 1 PUFF INH IH SCH ×2 (09:54→22:12)
[2019-06-16] MEDS ORDERED: *HR* Midazolam HCl 5 MG/5 ML VIAL IVP ONE (10:07)
[2019-06-16] MEDS ORDERED: *HR* Etomidate 20 MG/10 ML AMPUL IVP ONE (10:07)
[2019-06-16] MEDS ORDERED: Perflutren Lipid Microsphere 1.3 ML in 0.9 % Sodium Chloride 8.7 ML IVP ONE (11:51)
[2019-06-16] MEDS ORDERED: Perflutren Lipid Microsphere 2 ML VIAL ONE (11:53)
[2019-06-16 15:58] LABS: Hematocrit 26.9 % (35.3-44.9); Hemoglobin 8.8 g/dL (11.5-15.4)
[2019-06-16] MEDS: *HR* Heparin 5,000 UNIT/ML VIAL SQ SCH (17:55)
[2019-06-16 21:43] LABS: ABG Base Excess 7 mEq/L (-2 to 3); ABG HCO3 34 mEq/L (21-27); ABG Oxygen Saturation 97 % (95-98); ABG PCO2 63 mmHg (35-45); ABG PH 7.34 pH Units (7.32-7.45); ABG PO2 95 mmHg (85-104); ABG TCO2 36 mEq/L (20-26)
[2019-06-16] MEDS: *HR* LORazepam 0.5 MG TABLET PO PRN (22:55)
[2019-06-16] MEDS: *HR* HYDROcodone/Acet 5/325 mg TABLET PO PRN (22:55)
[2019-06-17] MEDS: Artificial Tears SOLN 15 ML BOTTLE BOTH EYES SCH ×6 (00:17→22:15)
[2019-06-17] MEDS: Insulin LISPRO 300 UNITS/3 ML VIAL SQ SCH ×5 (00:18→16:14)
[2019-06-17] MEDS: Levalbuterol Neb 1.25 MG/3 ML IH SCH ×4 (03:17→22:46)
[2019-06-17 04:30] LABS: ABG Base Excess 11 mEq/L (-2 to 3); ABG HCO3 38 mEq/L (21-27); ABG Oxygen Saturation 93 % (95-98); ABG PCO2 64 mmHg (35-45); ABG PH 7.38 pH Units (7.32-7.45); ABG PO2 71 mmHg (85-104); ABG TCO2 40 mEq/L (20-26)
[2019-06-17] MEDS: Hydrocortisone Sodium Succ 100 MG/2 ML VIAL IVP SCH ×2 (05:28→17:12)
[2019-06-17] MEDS: *HR* Heparin 5,000 UNIT/ML VIAL SQ SCH ×2 (05:28→17:12)
[2019-06-17] MEDS: *HR* HYDROcodone/Acet 5/325 mg TABLET PO PRN ×2 (06:09→19:54)
[2019-06-17] MEDS: Chlorhexidine Rinse 15 ML MOUTHWASH MM SCH ×2 (07:58→19:57)
[2019-06-17] MEDS: Pantoprazole 40 MG VIAL IVP SCH (07:58)
[2019-06-17] MEDS: Furosemide 40 MG/4 ML VIAL IVP SCH ×2 (07:58→20:02)
[2019-06-17] MEDS: Norepinephrine 4 MG in 0.9 % Sodium Chloride 250 ML IVC SCH (08:01)
[2019-06-17 08:43] LABS: Basophils % 0.2 %; Eosinophils % 0.3 %; Hemoglobin 8.6 g/dL (11.5-15.4); Immature Granulocytes % 1.9 % (0-4); Lymphocytes # 0.4 K/mcL (0.6-4.6); Lymphocytes % 6.9 %; Mean Corpuscular HGB Conc 31.9 g/dL (31.6-35.5); Mean Corpuscular Hemoglobin 30.5 pg (28.0-33.3); Mean Corpuscular Volume 95.7 fL (83.0-100.0); Mean Platelet Volume 9.4 fL (9.4-12.4); Monocytes # 0.6 K/mcL (0.0-1.3); Monocytes % 8.9 %; Neutrophils # 5.2 K/mcL (1.6-8.9); Platelet Count 117 K/mcL (140-400); Red Blood Count 2.82 M/mcL (3.82-4.97); Red Cell Distribution Width 15.6 % (11.5-14.5); Segmented Neutrophils % 81.8 %
[2019-06-17 08:44] LABS: White Blood Count 6.4 K/mcL (4.3-11.1)
[2019-06-17 08:59] LABS: Albumin 3.8 g/dL (3.5-5.7); Albumin/Globulin Ratio 1.4 (1.1-2.2); Bilirubin,Total 0.6 mg/dL (0.3-1.0); Globulin 2.7 g/dL (2.4-3.5); Magnesium 1.6 mg/dL (1.6-2.6); Phosphorous 3.4 mg/dL (2.7-4.5); Potassium 3.7 mEq/L (3.5-5.1); Total Protein 6.5 g/dL (6.4-8.9)
[2019-06-17] MEDS ORDERED: predniSONE 5 MG TABLET PO SCH (09:00)
[2019-06-17] MEDS: Budesonide/Formoterol 160/4.5 1 PUFF INH IH SCH ×2 (11:24→22:46)
[2019-06-17] MEDS ORDERED: Insulin LISPRO 300 UNITS/3 ML VIAL SQ SCH ×2 (11:30→21:00)
[2019-06-17] MEDS: *HR* LORazepam 0.5 MG TABLET PO PRN (19:54)
[2019-06-18] MEDS: Artificial Tears SOLN 15 ML BOTTLE BOTH EYES SCH ×3 (00:37→10:44)
[2019-06-18] MEDS ORDERED: Ipratropium/Albuterol Neb 3 ML IH PRN (03:39)
[2019-06-18] MEDS ORDERED: Nitroglycerin 25 MG/250 ML INFUS..BTL IVC SCH (03:39)
[2019-06-18] MEDS ORDERED: Dextrose Gel 15 GM/37.5 ML TUBE PO PRN ×2 (03:39)
[2019-06-18] MEDS ORDERED: Norepinephrine 4 MG in 0.9 % Sodium Chloride 250 ML IVC SCH (03:39)
[2019-06-18] MEDS ORDERED: D5% in Water 1,000 ML IVC PRN (03:39)
[2019-06-18] MEDS ORDERED: Sennosides 8.6 MG TABLET PO PRN (03:39)
[2019-06-18] MEDS ORDERED: *HR* Dextrose 50 % in Water (Syg) 50 ML SYRINGE IVP PRN (03:39)
[2019-06-18] MEDS ORDERED: Naloxone 0.4 MG/ML INJ IVP PRN (03:39)
[2019-06-18] MEDS ORDERED: Artificial Tears SOLN 15 ML BOTTLE BOTH EYES PRN (03:39)
[2019-06-18] MEDS ORDERED: Dexmedetomidine HCl 400 MCG/100 ML MLS IVC SCH (03:39)
[2019-06-18] MEDS: Levalbuterol Neb 1.25 MG/3 ML IH SCH ×4 (03:56→22:06)
[2019-06-18 04:15] LABS: Basophils % 0.6 %; Eosinophils # 0.1 K/mcL (0.0-0.6); Eosinophils % 1.4 %; Hematocrit 27.3 % (35.3-44.9); Hemoglobin 8.6 g/dL (11.5-15.4); Immature Granulocytes % 4.7 % (0-4); Lymphocytes # 0.5 K/mcL (0.6-4.6); Lymphocytes % 13.1 %; Mean Corpuscular HGB Conc 31.5 g/dL (31.6-35.5); Mean Corpuscular Hemoglobin 30.8 pg (28.0-33.3); Mean Corpuscular Volume 97.8 fL (83.0-100.0); Mean Platelet Volume 8.9 fL (9.4-12.4); Monocytes # 0.4 K/mcL (0.0-1.3); Monocytes % 11.9 %; Neutrophils # 2.5 K/mcL (1.6-8.9); Platelet Count 108 K/mcL (140-400); Red Blood Count 2.79 M/mcL (3.82-4.97); Red Cell Distribution Width 15.5 % (11.5-14.5); Segmented Neutrophils % 68.3 %; White Blood Count 3.6 K/mcL (4.3-11.1)
[2019-06-18 04:36] LABS: BUN/Creatinine Ratio 23 (6-26); Blood Urea Nitrogen 26 mg/dL (8-23); Calcium 8.6 mg/dL (8.6-10.3); Carbon Dioxide 39 mEq/L (23-29); Chloride 97 mEq/L (98-107); Glucose 104 mg/dL (70-105); Osmolality,Calculated 303 (280-300); Potassium 2.9 mEq/L (3.5-5.1); Sodium 144 mEq/L (136-145); eGFR For African Americans > 60 (> 60); eGFR For Non-African Americans 50 (> 60)
[2019-06-18] MEDS ORDERED: *HR* Heparin 5,000 UNIT/ML VIAL SQ SCH (06:00)
[2019-06-18] MEDS: Insulin LISPRO 300 UNITS/3 ML VIAL SQ SCH ×4 (08:12→21:10)
[2019-06-18 08:46] LABS: Magnesium 1.4 mg/dL (1.6-2.6)
[2019-06-18] MEDS ORDERED: Furosemide 40 MG/4 ML VIAL IVP SCH (09:00)
[2019-06-18] MEDS ORDERED: Pantoprazole 40 MG VIAL IVP SCH (09:00)
[2019-06-18] MEDS ORDERED: Chlorhexidine Rinse 15 ML MOUTHWASH MM SCH (09:00)
[2019-06-18] MEDS: predniSONE 5 MG TABLET PO SCH (10:44)
[2019-06-18] MEDS: Furosemide 40 MG/4 ML VIAL IVP SCH ×2 (10:44→17:30)
[2019-06-18] MEDS: Budesonide/Formoterol 160/4.5 1 PUFF INH IH SCH ×2 (11:41→20:08)
[2019-06-18] MEDS ORDERED: Albuterol 2.5 MG/3 ML NEBULIZER IH PRN (12:52)
[2019-06-18] MEDS: *HR* HYDROcodone/Acet 5/325 mg TABLET PO PRN ×2 (13:16→21:14)
[2019-06-18] MEDS: *HR* LORazepam 0.5 MG TABLET PO PRN (19:46)
[2019-06-18] MEDS ORDERED: Acetaminophen 325 MG TABLET PO PRN (20:04)
[2019-06-18] MEDS: Ondansetron 4 MG/2 ML VIAL IVP PRN (21:15)
[2019-06-19 03:49] LABS: Hematocrit 30.9 % (35.3-44.9); Hemoglobin 9.9 g/dL (11.5-15.4); Mean Corpuscular Hemoglobin 30.7 pg (28.0-33.3); Mean Corpuscular Volume 95.7 fL (83.0-100.0); Mean Platelet Volume 9.2 fL (9.4-12.4); Platelet Count 152 K/mcL (140-400); Red Blood Count 3.23 M/mcL (3.82-4.97); Red Cell Distribution Width 15.5 % (11.5-14.5); White Blood Count 3.8 K/mcL (4.3-11.1)
[2019-06-19] MEDS: Levalbuterol Neb 1.25 MG/3 ML IH SCH ×4 (03:54→22:22)
[2019-06-19 04:21] LABS: Calcium 9.1 mg/dL (8.6-10.3); Magnesium 2.1 mg/dL (1.6-2.6); Potassium 4.1 mEq/L (3.5-5.1)
[2019-06-19] MEDS: Furosemide 40 MG TABLET PO SCH (08:25)
[2019-06-19] MEDS: predniSONE 5 MG TABLET PO SCH (08:25)
[2019-06-19] MEDS: Magnesium Oxide 400 MG TABLET PO SCH (08:26)
[2019-06-19] MEDS: Insulin LISPRO 300 UNITS/3 ML VIAL SQ SCH ×4 (08:27→20:32)
[2019-06-19] MEDS: *HR* HYDROcodone/Acet 5/325 mg TABLET PO PRN ×3 (08:43→22:11)
[2019-06-19] MEDS: Tiotropium 18 MCG inhalation IH SCH (10:39)
[2019-06-19] MEDS: Budesonide/Formoterol 160/4.5 1 PUFF INH IH SCH ×2 (10:39→22:23)
[2019-06-19] MEDS: Gabapentin 100 MG CAPSULE PO SCH ×2 (10:58→20:33)
[2019-06-19] MEDS: Ondansetron 4 MG/2 ML VIAL IVP PRN (10:58)
[2019-06-19] MEDS: *HR* LORazepam 0.5 MG TABLET PO PRN (20:33)
[2019-06-19] MEDS: hydrOXYzine pamoate 25 MG CAPSULE PO PRN (22:11)
[2019-06-20] MEDS: Ondansetron 4 MG/2 ML VIAL IVP PRN ×2 (02:35→11:17)
[2019-06-20] MEDS: Levalbuterol Neb 1.25 MG/3 ML IH SCH ×4 (04:28→21:29)
[2019-06-20] MEDS: Magnesium Oxide 400 MG TABLET PO SCH (09:02)
[2019-06-20] MEDS: Furosemide 40 MG TABLET PO SCH (09:02)
[2019-06-20] MEDS: predniSONE 5 MG TABLET PO SCH (09:02)
[2019-06-20] MEDS: Gabapentin 100 MG CAPSULE PO SCH ×2 (09:02→20:39)
[2019-06-20] MEDS: Insulin LISPRO 300 UNITS/3 ML VIAL SQ SCH ×4 (09:03→20:40)
[2019-06-20] MEDS: *HR* HYDROcodone/Acet 5/325 mg TABLET PO PRN ×2 (09:17→18:57)
[2019-06-20 09:34] LABS: Hematocrit 33.4 % (35.3-44.9); Hemoglobin 10.5 g/dL (11.5-15.4); Mean Corpuscular HGB Conc 31.4 g/dL (31.6-35.5); Mean Corpuscular Hemoglobin 30.4 pg (28.0-33.3); Mean Corpuscular Volume 96.8 fL (83.0-100.0); Mean Platelet Volume 9.2 fL (9.4-12.4); Platelet Count 182 K/mcL (140-400); Red Blood Count 3.45 M/mcL (3.82-4.97); White Blood Count 5.7 K/mcL (4.3-11.1)
[2019-06-20 09:52] LABS: Magnesium 1.8 mg/dL (1.6-2.6); Potassium 4.2 mEq/L (3.5-5.1)
[2019-06-20] MEDS: Budesonide/Formoterol 160/4.5 1 PUFF INH IH SCH ×2 (10:28→21:31)
[2019-06-20] MEDS: Tiotropium 18 MCG inhalation IH SCH (10:29)
[2019-06-20] MEDS: Vancomycin Oral Soln 125 MG/2.5 ML UDC PO SCH ×3 (13:48→20:38)
[2019-06-20] MEDS: *HR* LORazepam 0.5 MG TABLET PO PRN (20:39)
[2019-06-21] MEDS: *HR* HYDROcodone/Acet 5/325 mg TABLET PO PRN ×3 (02:35→21:39)
[2019-06-21] MEDS: hydrOXYzine pamoate 25 MG CAPSULE PO PRN (02:37)
[2019-06-21] MEDS: Levalbuterol Neb 1.25 MG/3 ML IH SCH ×4 (04:03→22:41)
[2019-06-21 04:09] LABS: Hemoglobin 9.6 g/dL (11.5-15.4); Mean Corpuscular Hemoglobin 30.7 pg (28.0-33.3); Mean Platelet Volume 9.5 fL (9.4-12.4); Platelet Count 167 K/mcL (140-400); Red Blood Count 3.13 M/mcL (3.82-4.97); Red Cell Distribution Width 16.2 % (11.5-14.5); White Blood Count 4.6 K/mcL (4.3-11.1)
[2019-06-21 04:26] LABS: Calcium 9.2 mg/dL (8.6-10.3); Potassium 4.9 mEq/L (3.5-5.1)
[2019-06-21] MEDS: Magnesium Oxide 400 MG TABLET PO SCH (08:59)
[2019-06-21] MEDS: Vancomycin Oral Soln 125 MG/2.5 ML UDC PO SCH ×4 (08:59→21:37)
[2019-06-21] MEDS: predniSONE 5 MG TABLET PO SCH (08:59)
[2019-06-21] MEDS: Gabapentin 100 MG CAPSULE PO SCH ×2 (09:00→21:38)
[2019-06-21] MEDS: Insulin LISPRO 300 UNITS/3 ML VIAL SQ SCH ×4 (09:00→22:58)
[2019-06-21] MEDS: Budesonide/Formoterol 160/4.5 1 PUFF INH IH SCH ×2 (10:54→22:41)
[2019-06-21] MEDS: Tiotropium 18 MCG inhalation IH SCH (10:55)
[2019-06-21 11:49] LABS: Magnesium 1.8 mg/dL (1.6-2.6)
[2019-06-21] MEDS: *HR* LORazepam 0.5 MG TABLET PO PRN ×2 (13:45→21:42)
[2019-06-21] MEDS: Ondansetron 4 MG/2 ML VIAL IVP PRN (15:32)
[2019-06-21] MEDS: Melatonin 3 MG TABLET PO SCH (21:38)
[2019-06-22] MEDS: Levalbuterol Neb 1.25 MG/3 ML IH SCH ×4 (04:15→21:54)
[2019-06-22] MEDS: *HR* HYDROcodone/Acet 5/325 mg TABLET PO PRN ×3 (04:46→21:01)
[2019-06-22 04:48] LABS: Hemoglobin 9.5 g/dL (11.5-15.4); Mean Corpuscular HGB Conc 32.8 g/dL (31.6-35.5); Mean Corpuscular Hemoglobin 31.3 pg (28.0-33.3); Mean Corpuscular Volume 95.4 fL (83.0-100.0); Mean Platelet Volume 9.1 fL (9.4-12.4); Platelet Count 157 K/mcL (140-400); Red Blood Count 3.04 M/mcL (3.82-4.97); Red Cell Distribution Width 15.7 % (11.5-14.5); White Blood Count 3.9 K/mcL (4.3-11.1)
[2019-06-22 05:11] LABS: Calcium 9.6 mg/dL (8.6-10.3); Magnesium 1.9 mg/dL (1.6-2.6); Potassium 4.9 mEq/L (3.5-5.1)
[2019-06-22] MEDS: Gabapentin 100 MG CAPSULE PO SCH ×2 (09:01→21:01)
[2019-06-22] MEDS: Insulin LISPRO 300 UNITS/3 ML VIAL SQ SCH ×4 (09:01→21:02)
[2019-06-22] MEDS: predniSONE 5 MG TABLET PO SCH (09:01)
[2019-06-22] MEDS: Magnesium Oxide 400 MG TABLET PO SCH (09:01)
[2019-06-22] MEDS: Vancomycin Oral Soln 125 MG/2.5 ML UDC PO SCH ×4 (09:02→21:02)
[2019-06-22] MEDS: *HR* LORazepam 0.5 MG TABLET PO PRN ×2 (09:02→21:01)
[2019-06-22] MEDS: Tiotropium 18 MCG inhalation IH SCH (09:59)
[2019-06-22] MEDS: Budesonide/Formoterol 160/4.5 1 PUFF INH IH SCH ×2 (09:59→21:54)
[2019-06-22] MEDS: Melatonin 3 MG TABLET PO SCH (21:00)
[2019-06-23] MEDS: Levalbuterol Neb 1.25 MG/3 ML IH SCH ×3 (03:55→15:41)
[2019-06-23] MEDS: Vancomycin Oral Soln 125 MG/2.5 ML UDC PO SCH ×2 (08:31→11:47)
[2019-06-23] MEDS: Magnesium Oxide 400 MG TABLET PO SCH (08:32)
[2019-06-23] MEDS: Gabapentin 100 MG CAPSULE PO SCH (08:32)
[2019-06-23] MEDS: Insulin LISPRO 300 UNITS/3 ML VIAL SQ SCH ×2 (08:33→11:47)
[2019-06-23] MEDS: predniSONE 5 MG TABLET PO SCH (08:33)
[2019-06-23] MEDS: *HR* HYDROcodone/Acet 5/325 mg TABLET PO PRN (08:41)
[2019-06-23] MEDS ORDERED: *HR* Midazolam HCl 5 MG/5 ML VIAL IVP PRN (09:36)
[2019-06-23] MEDS ORDERED: 0.9 % Sodium Chloride 500 ML IVC ONE (09:36)
[2019-06-23] MEDS ORDERED: *HR* FentaNYL (PF) 100 MCG/2 ML VIAL IVP PRN (09:36)
[2019-06-23] MEDS ORDERED: Lidocaine Viscous Oral Soln 15 ML SOLUTION MM PRN (09:36)
[2019-06-23] MEDS: Tiotropium 18 MCG inhalation IH SCH (12:02)
[2019-06-23] MEDS: Budesonide/Formoterol 160/4.5 1 PUFF INH IH SCH (12:02)
[2019-06-23 13:15] VITALS: BP 142/86
[2019-06-23 13:39] LABS: Hematocrit 28.4 % (35.3-44.9); Hemoglobin 9.2 g/dL (11.5-15.4); Mean Corpuscular HGB Conc 32.4 g/dL (31.6-35.5); Mean Corpuscular Hemoglobin 30.6 pg (28.0-33.3); Mean Corpuscular Volume 94.4 fL (83.0-100.0); Mean Platelet Volume 9.4 fL (9.4-12.4); Platelet Count 144 K/mcL (140-400); Red Blood Count 3.01 M/mcL (3.82-4.97); Red Cell Distribution Width 14.9 % (11.5-14.5); White Blood Count 4.5 K/mcL (4.3-11.1)
[2019-06-23 13:51] LABS: Calcium 10.2 mg/dL (8.6-10.3); Potassium 5.2 mEq/L (3.5-5.1)
== END 2019-06-23 15:55 | DRG 377 ==
LOC: ICNU 03:20 → SUATTDRO 03:20 → 2ANU 06-17 16:59
PROVIDERS: ADMIT Internal Medicine; ATTEND Internal Medicine

== ENCOUNTER 2019-08-07 03:51 | Inpatient (IN) ==
[2019-08-07] MEDS ORDERED: *HR* Etomidate 20 MG/10 ML AMPUL IVP ONE ×2 (04:01→10:22)
[2019-08-07] MEDS ORDERED: *HR* Succinylcholine 200 MG/10 ML VIAL IVP ONE ×2 (04:01→10:22)
[2019-08-07] MEDS ORDERED: *HR* Propofol 200 MG/20 ML VIAL IVP ONE ×2 (04:22→10:22)
[2019-08-07 04:27] LABS: ABG Base Excess 2 mEq/L (-2 to 3); ABG HCO3 30 mEq/L (21-27); ABG Oxygen Saturation 85 % (95-98); ABG PCO2 64 mmHg (35-45); ABG PH 7.28 pH Units (7.32-7.45); ABG PO2 57 mmHg (85-104); ABG TCO2 32 mEq/L (20-26)
[2019-08-07] MEDS ORDERED: Piperacillin/Tazobactam 3.375 GM in 0.9 % Sodium Chloride Mini Bag 100 ML IVPB ONE (04:52)
[2019-08-07] MEDS ORDERED: levoFLOXacin 750 MG/150 ML 750 MG/150 ML BAG IVPB ONE (04:52)
[2019-08-07 05:32] LABS: Prothrombin Time 11.3 Seconds (9.4-12.1)
[2019-08-07 05:35] LABS: Basophils % 0.8 %; Eosinophils % 0.3 %; Hemoglobin 10.7 g/dL (11.5-15.4)
[2019-08-07 05:37] LABS: Basophils # 0.1 K/mcL (0.0-0.2); Hematocrit 33.3 % (35.3-44.9); Immature Granulocytes % 4.9 % (0-4); Immature Platelets 3.2 % (1.1-6.1); Lymphocytes # 0.6 K/mcL (0.6-4.6); Lymphocytes % 8.6 %; Mean Corpuscular HGB Conc 32.1 g/dL (31.6-35.5); Mean Corpuscular Hemoglobin 30.5 pg (28.0-33.3); Mean Corpuscular Volume 94.9 fL (83.0-100.0); Mean Platelet Volume 9.8 fL (9.4-12.4); Monocytes # 0.3 K/mcL (0.0-1.3); Monocytes % 4.3 %; Neutrophils # 5.3 K/mcL (1.6-8.9); Nucleated Red Blood Cells 0.3 /100 WBC (0); Red Blood Count 3.51 M/mcL (3.82-4.97); Red Cell Distribution Width 14.4 % (11.5-14.5); Segmented Neutrophils % 81.1 %; White Blood Count 6.5 K/mcL (4.3-11.1)
[2019-08-07 05:47] LABS: Potassium 4.4 mEq/L (3.5-5.1)
[2019-08-07 05:49] LABS: Platelet Count 89 K/mcL (140-400)
[2019-08-07 05:53] LABS: Troponin I 0.12 ng/mL (< 0.04)
[2019-08-07 06:14] LABS: Platelet Estimate Decreased (Normal)
[2019-08-07] MEDS ORDERED: Dexmedetomidine HCl 400 MCG/100 ML MLS IVC ONE (06:26)
[2019-08-07] MEDS: Dexmedetomidine HCl 400 MCG/100 ML MLS IVC SCH ×2 (06:31→18:13)
[2019-08-07] MEDS ORDERED: Piperacillin/Tazobactam 3.375 GM in 0.9 % Sodium Chloride Mini Bag 100 ML IVPB SCH ×2 (08:00→18:00)
[2019-08-07] MEDS ORDERED: Naloxone 0.4 MG/ML INJ IVP PRN (08:21)
[2019-08-07] MEDS ORDERED: Furosemide 20 MG/2 ML VIAL IVP ONE (08:30)
[2019-08-07] MEDS ORDERED: Dextrose Gel 15 GM/37.5 ML TUBE PO PRN ×2 (08:37)
[2019-08-07] MEDS ORDERED: D5% in Water 1,000 ML IVC PRN (08:37)
[2019-08-07] MEDS ORDERED: *HR* Dextrose 50 % in Water (Syg) 50 ML SYRINGE IVP PRN (08:37)
[2019-08-07 09:20] LABS: Bilirubin,Urine Negative (Negative); Blood,Urine Negative (Negative); Clarity,Urine Cloudy (Clear); Color,Urine Yellow (Yellow); Glucose,Urine (UA) >=1000 mg/dL (Normal); Ketones,Urine Negative (Negative); Leukocyte Esterase,Urine Negative (Negative); Nitrite,Urine Negative (Negative); PH,Urine 5.5 pH Units (5.0-8.0); Protein,Urine 100 mg/dL (Neg-Trace); Specific Gravity,Urine 1.024 (1.010-1.025); Urobilinogen,Urine Normal (Normal)
[2019-08-07 09:22] LABS: RBC,Urine 0-3 per hpf (0-3); Squamous Epithelial Cell,Urine Many per lpf (None-Few); WBC,Urine 0-3 per hpf (0-3)
[2019-08-07] MEDS: Albuterol 2.5 MG/3 ML NEBULIZER IH SCH ×3 (09:25→22:02)
[2019-08-07 09:41] LABS: Bacteria,Urine Many per hpf (None-Few); Hyaline Casts,Urine Few per lpf (None-Few); Renal Epithelial Cells,Urine Few per hpf (None-Few)
[2019-08-07 09:42] LABS: ABG Base Excess 7 mEq/L (-2 to 3); ABG HCO3 33 mEq/L (21-27); ABG Oxygen Saturation 95 % (95-98); ABG PCO2 51 mmHg (35-45); ABG PH 7.42 pH Units (7.32-7.45); ABG PO2 73 mmHg (85-104); ABG TCO2 34 mEq/L (20-26); Blood Gas Modality AF; Blood Gas VT 400 cc
[2019-08-07] MEDS ORDERED: Aminoglycoside Consult 1 EACH MC ONE (09:42)
[2019-08-07] MEDS: Insulin LISPRO 300 UNITS/3 ML VIAL SQ SCH ×3 (09:50→17:56)
[2019-08-07] MEDS: Acetaminophen 650 MG RECTAL SUPP RC PRN ×2 (10:00→15:36)
[2019-08-07] MEDS ORDERED: 0.9 % Sodium Chloride 1,000 ML ONE (11:39)
[2019-08-07] MEDS ORDERED: *HR* Norepinephrine 4 MG/4 ML VIAL IVC ONE (11:39)
[2019-08-07] MEDS ORDERED: D5% in Water 250 ML ONE (11:39)
[2019-08-07] MEDS ORDERED: 0.9 % Sodium Chloride 1,000 ML IVC ONE ×2 (11:45→12:30)
[2019-08-07] MEDS: Hydrocortisone Sodium Succ 100 MG/2 ML VIAL IVP SCH ×3 (11:47→23:04)
[2019-08-07] MEDS ORDERED: Insulin LISPRO 300 UNITS/3 ML VIAL SQ SCH (12:00)
[2019-08-07] MEDS ORDERED: Ipratropium/Albuterol Neb 3 ML IH SCH (12:00)
[2019-08-07] MEDS: Norepinephrine 4 MG in 0.9 % Sodium Chloride 250 ML IVC SCH ×3 (12:03→18:10)
[2019-08-07 12:13] LABS: Campylobacter by PCR Not detected (Not detect)
[2019-08-07 12:14] LABS: C.difficile Toxin A/B Gene PCR DETECTED (Not detect)
[2019-08-07 12:15] LABS: Adenovirus F 40/41 PCR Not detected (Not detect); Astrovirus PCR Not detected (Not detect); Cryptosporidium by PCR Not detected (Not detect); Cyclospora cayetanensis PCR Not detected (Not detect); E. coli O157 by PCR Not detected (Not detect); Entamoeba histolytica PCR Not detected (Not detect); Enteroaggregative E.coli(EAEC) Not detected (Not detect); Enteropathogenic E.coli(EPEC) Not detected (Not detect); Enterotoxigenic E.coli (ETEC) Not detected (Not detect); Giardia lamblia PCR Not detected (Not detect); Norovirus GI/GII PCR Not detected (Not detect); Plesiomonas shigelloides PCR Not detected (Not detect); Rotavirus A PCR Not detected (Not detect); Salmonella PCR Not detected (Not detect); Sapovirus PCR Not detected (Not detect); Shig/EnteroinvasiveE coli EIEC Not detected (Not detect); Shigalike tox-prod E coli STEC Not detected (Not detect); Vibrio PCR Not detected (Not detect); Vibrio cholerae PCR Not detected (Not detect); Yersinia enterocolitica PCR Not detected (Not detect)
[2019-08-07] MEDS ORDERED: Vancomycin Oral Soln 125 MG/2.5 ML UDC PO SCH (13:00)
[2019-08-07] MEDS ORDERED: Artificial Tears SOLN 15 ML BOTTLE BOTH EYES PRN (13:25)
[2019-08-07 13:35] LABS: Estimated Average Glucose 148 mg/dl
[2019-08-07 14:07] LABS: Adenovirus Not Detected (Not Detect); Bordetella Pertussis Not Detected (Not Detect); Chlamydophila pneumoniae Not Detected (Not Detect); Coronavirus 229E Not Detected (Not Detect); Coronavirus HKU1 Not Detected (Not Detect); Coronavirus NL63 Not Detected (Not Detect); Coronavirus OC43 Not Detected (Not Detect); Human Metapneumovirus Not Detected (Not Detect); Human Rhinovirus/Enterovirus Not Detected (Not Detect); Influenza A Subtype 2009 H1 Not Detected (Not Detect); Influenza A Untypeable Not Detected (Not Detect); Influenza B Not Detected (Not Detect); Mycoplasma pneumoniae Not Detected (Not Detect); Parainfluenza Virus 1 Not Detected (Not Detect); Parainfluenza Virus 2 Not Detected (Not Detect); Parainfluenza Virus 3 Not Detected (Not Detect); Parainfluenza Virus 4 Not Detected (Not Detect); Respiratory Syncytial Virus DETECTED (Not Detect)
[2019-08-07] MEDS ORDERED: Isovue-370 500 ML BOTTLE PO ONE (14:49)
[2019-08-07] MEDS ORDERED: *HR* LORazepam 2 MG/ML VIAL ONE (14:57)
[2019-08-07] MEDS ORDERED: *HR* LORazepam 2 MG/ML VIAL IVP ONE (15:00)
[2019-08-07] MEDS: Artificial Tears SOLN 15 ML BOTTLE BOTH EYES SCH ×2 (15:35→19:59)
[2019-08-07] MEDS: MetroNIDAZOLE 500 MG/100 ML 500 MG/100 ML BAG IVPB SCH (15:39)
[2019-08-07] MEDS: Vasopressin 40 UNIT in D5% in Water 100 ML IVC SCH (17:49)
[2019-08-07] MEDS: Cefepime HCl 2,000 MG in Water for inj. (sterile) 20 ML IVP SCH (17:54)
[2019-08-07] MEDS: Vancomycin Oral Soln 125 MG/2.5 ML UDC PO SCH ×2 (17:55→23:06)
[2019-08-07] MEDS ORDERED: Albumin 25% 25gram/100mL 25 GM/100 ML IV.SOLN IVPB ONE (18:44)
[2019-08-07] MEDS: Chlorhexidine Rinse 15 ML MOUTHWASH MM SCH (19:59)
[2019-08-07] MEDS: Norepinephrine 8 MG in 0.9 % Sodium Chloride 250 ML IVC SCH (23:04)
[2019-08-08] MEDS: MetroNIDAZOLE 500 MG/100 ML 500 MG/100 ML BAG IVPB SCH ×3 (00:03→16:07)
[2019-08-08] MEDS: Insulin LISPRO 300 UNITS/3 ML VIAL SQ SCH ×6 (00:05→22:43)
[2019-08-08] MEDS: Artificial Tears SOLN 15 ML BOTTLE BOTH EYES SCH ×6 (00:05→21:00)
[2019-08-08] MEDS: Dexmedetomidine HCl 400 MCG/100 ML MLS IVC SCH ×4 (01:12→18:47)
[2019-08-08] MEDS: Albuterol 2.5 MG/3 ML NEBULIZER IH SCH ×4 (04:01→22:14)
[2019-08-08 04:21] LABS: Nucleated Red Blood Cells 0.3 /100 WBC (0); Red Cell Distribution Width 14.8 % (11.5-14.5)
[2019-08-08 04:23] LABS: Hematocrit 24.8 % (35.3-44.9); Hemoglobin 8.1 g/dL (11.5-15.4); Mean Corpuscular HGB Conc 32.7 g/dL (31.6-35.5); Mean Corpuscular Hemoglobin 29.9 pg (28.0-33.3); Mean Corpuscular Volume 91.5 fL (83.0-100.0); Mean Platelet Volume 9.5 fL (9.4-12.4); Red Blood Count 2.71 M/mcL (3.82-4.97); White Blood Count 7.3 K/mcL (4.3-11.1)
[2019-08-08] MEDS: Cefepime HCl 2,000 MG in Water for inj. (sterile) 20 ML IVP SCH ×2 (04:34→16:07)
[2019-08-08 04:40] LABS: Calcium 7.8 mg/dL (8.6-10.3); Magnesium 1.1 mg/dL (1.6-2.6); Potassium 4.7 mEq/L (3.5-5.1)
[2019-08-08 05:10] LABS: Platelet Count 67 K/mcL (140-400)
[2019-08-08 05:13] LABS: Large Platelets Present (Not Present); Lymphocytes # 0.6 K/mcL (0.6-4.6); Monocytes # 0.3 K/mcL (0.0-1.3); Neutrophils # 6.1 K/mcL (1.6-8.9); Platelet Estimate Decreased (Normal); Reactive Lymphocytes Present (Not Present)
[2019-08-08 05:14] LABS: Polychromasia 1+ (Not Present)
[2019-08-08 05:42] LABS: ABG Base Excess -3 mEq/L (-2 to 3); ABG HCO3 24 mEq/L (21-27); ABG Oxygen Saturation 86 % (95-98); ABG PCO2 48 mmHg (35-45); ABG PO2 58 mmHg (85-104); ABG TCO2 25 mEq/L (20-26); Blood Gas Modality ASSIST CONTROL; Blood Gas VT 380 cc
[2019-08-08] MEDS: Hydrocortisone Sodium Succ 100 MG/2 ML VIAL IVP SCH ×3 (05:45→17:49)
[2019-08-08] MEDS: Vancomycin Oral Soln 125 MG/2.5 ML UDC PO SCH ×3 (05:46→17:49)
[2019-08-08] MEDS: Pantoprazole 40 MG VIAL IVP SCH (07:58)
[2019-08-08] MEDS: Chlorhexidine Rinse 15 ML MOUTHWASH MM SCH ×2 (07:58→21:00)
[2019-08-08] MEDS: Acetaminophen 650 MG RECTAL SUPP RC PRN (07:58)
[2019-08-08] MEDS: Aspirin 81 MG TAB.CHEW PO SCH (07:59)
[2019-08-08] MEDS ORDERED: Potassium Phosphate 44 MEQ in 0.9 % Sodium Chloride 250 ML IVPB PRN (08:52)
[2019-08-08] MEDS: FentaNYL (PF) 1,000 MCG in 0.9 % Sodium Chloride 80 ML IVC SCH (09:00)
[2019-08-08] MEDS ORDERED: Aspirin Enteric Coated 81 MG Tablet PO SCH (09:00)
[2019-08-08] MEDS: Vasopressin 40 UNIT in D5% in Water 100 ML IVC SCH (11:48)
[2019-08-08 16:34] LABS: Red Cell Distribution Width 14.8 % (11.5-14.5)
[2019-08-08 16:36] LABS: Hematocrit 23.8 % (35.3-44.9); Hemoglobin 7.7 g/dL (11.5-15.4); Immature Platelets 3.7 % (1.1-6.1); Lymphocytes # 0.3 K/mcL (0.6-4.6); Mean Corpuscular HGB Conc 32.4 g/dL (31.6-35.5); Mean Corpuscular Hemoglobin 30.1 pg (28.0-33.3); Mean Platelet Volume 10.3 fL (9.4-12.4); Red Blood Count 2.56 M/mcL (3.82-4.97); White Blood Count 5.5 K/mcL (4.3-11.1)
[2019-08-08 16:37] LABS: Platelet Count 58 K/mcL (140-400)
[2019-08-08 17:05] LABS: Monocytes # 0.1 K/mcL (0.0-1.3); Neutrophils # 5.1 K/mcL (1.6-8.9)
[2019-08-08 17:06] LABS: Platelet Estimate Decreased (Normal)
[2019-08-08] MEDS: Norepinephrine 8 MG in 0.9 % Sodium Chloride 250 ML IVC SCH (22:25)
[2019-08-09] MEDS: Artificial Tears SOLN 15 ML BOTTLE BOTH EYES SCH ×6 (00:39→19:30)
[2019-08-09] MEDS: MetroNIDAZOLE 500 MG/100 ML 500 MG/100 ML BAG IVPB SCH ×3 (00:39→16:22)
[2019-08-09] MEDS: Hydrocortisone Sodium Succ 100 MG/2 ML VIAL IVP SCH ×4 (00:39→18:23)
[2019-08-09] MEDS: FentaNYL (PF) 1,000 MCG in 0.9 % Sodium Chloride 80 ML IVC SCH ×2 (00:40→19:31)
[2019-08-09] MEDS: Vancomycin Oral Soln 125 MG/2.5 ML UDC PO SCH ×4 (01:07→18:24)
[2019-08-09] MEDS: Dexmedetomidine HCl 400 MCG/100 ML MLS IVC SCH ×5 (01:21→21:43)
[2019-08-09] MEDS: Acetaminophen 650 MG RECTAL SUPP RC PRN ×2 (02:26→12:02)
[2019-08-09] MEDS: Insulin LISPRO 300 UNITS/3 ML VIAL SQ SCH ×6 (02:49→21:47)
[2019-08-09] MEDS: Cefepime HCl 2,000 MG in Water for inj. (sterile) 20 ML IVP SCH ×2 (03:20→16:05)
[2019-08-09 03:45] LABS: VBG Ionized Calcium 1.03 mmol/L (1.15-1.35)
[2019-08-09 04:07] LABS: Calcium 8.1 mg/dL (8.6-10.3); Magnesium 2.6 mg/dL (1.6-2.6); Phosphorous 3.1 mg/dL (2.7-4.5); Potassium 3.8 mEq/L (3.5-5.1)
[2019-08-09 04:22] LABS: Hematocrit 23.6 % (35.3-44.9); Hemoglobin 7.5 g/dL (11.5-15.4); Mean Corpuscular HGB Conc 31.8 g/dL (31.6-35.5); Mean Corpuscular Hemoglobin 29.5 pg (28.0-33.3); Mean Corpuscular Volume 92.9 fL (83.0-100.0); Mean Platelet Volume 10.5 fL (9.4-12.4); Red Blood Count 2.54 M/mcL (3.82-4.97); Red Cell Distribution Width 14.9 % (11.5-14.5); White Blood Count 6.3 K/mcL (4.3-11.1)
[2019-08-09 04:30] LABS: Platelet Count 82 K/mcL (140-400)
[2019-08-09] MEDS: Albuterol 2.5 MG/3 ML NEBULIZER IH SCH ×4 (04:35→21:59)
[2019-08-09 05:14] LABS: Monocytes # 0.4 K/mcL (0.0-1.3); Neutrophils # 5.8 K/mcL (1.6-8.9)
[2019-08-09 05:15] LABS: Anisocytosis 1+ (Not Present); Platelet Estimate Slight Decrease (Normal); Polychromasia 1+ (Not Present)
[2019-08-09 05:48] LABS: ABG Base Excess -3 mEq/L (-2 to 3); ABG HCO3 26 mEq/L (21-27); ABG Oxygen Saturation 90 % (95-98); ABG PCO2 63 mmHg (35-45); ABG PH 7.23 pH Units (7.32-7.45); ABG PO2 72 mmHg (85-104); ABG TCO2 28 mEq/L (20-26); Blood Gas Modality AF; Blood Gas VT 380 cc
[2019-08-09] MEDS: Pantoprazole 40 MG VIAL IVP SCH (08:10)
[2019-08-09] MEDS: Aspirin 81 MG TAB.CHEW PO SCH (08:10)
[2019-08-09] MEDS: Chlorhexidine Rinse 15 ML MOUTHWASH MM SCH ×2 (08:10→19:31)
[2019-08-09 08:33] LABS: ABG Base Excess -1 mEq/L (-2 to 3); ABG HCO3 28 mEq/L (21-27); ABG Oxygen Saturation 92 % (95-98); ABG PCO2 70 mmHg (35-45); ABG PO2 79 mmHg (85-104); ABG TCO2 30 mEq/L (20-26); Blood Gas Modality AF; Blood Gas VT 420 cc
[2019-08-09] MEDS ORDERED: Sodium Bicarbonate 50 MEQ/50 ML VIAL IVP ONE (08:43)
[2019-08-09] MEDS ORDERED: Sodium Bicarbonate 150 MEQ in D5% in Water 1,000 ML IVC SCH (11:15)
[2019-08-09] MEDS: Vasopressin 40 UNIT in D5% in Water 100 ML IVC SCH (11:51)
[2019-08-09] MEDS: Norepinephrine 8 MG in 0.9 % Sodium Chloride 250 ML IVC SCH (13:23)
[2019-08-09] MEDS: Calcium Gluconate 1gm/50mL 1 GM/50 ML BAG IVPB PRN (13:25)
[2019-08-09 18:56] LABS: VBG Ionized Calcium 1.05 mmol/L (1.15-1.35)
[2019-08-10] MEDS: Hydrocortisone Sodium Succ 100 MG/2 ML VIAL IVP SCH ×5 (00:15→23:54)
[2019-08-10] MEDS: MetroNIDAZOLE 500 MG/100 ML 500 MG/100 ML BAG IVPB SCH ×4 (00:15→23:55)
[2019-08-10] MEDS: Artificial Tears SOLN 15 ML BOTTLE BOTH EYES SCH ×7 (00:15→23:55)
[2019-08-10] MEDS: Vancomycin Oral Soln 125 MG/2.5 ML UDC PO SCH ×5 (00:15→23:55)
[2019-08-10] MEDS: Dexmedetomidine HCl 400 MCG/100 ML MLS IVC SCH ×3 (02:27→16:36)
[2019-08-10] MEDS: Insulin LISPRO 300 UNITS/3 ML VIAL SQ SCH ×6 (02:55→21:54)
[2019-08-10] MEDS: Cefepime HCl 2,000 MG in Water for inj. (sterile) 20 ML IVP SCH ×2 (03:48→16:31)
[2019-08-10] MEDS: Albuterol 2.5 MG/3 ML NEBULIZER IH SCH (04:39)
[2019-08-10 04:49] LABS: Red Blood Count 2.54 M/mcL (3.82-4.97)
[2019-08-10 04:51] LABS: Hematocrit 23.5 % (35.3-44.9); Hemoglobin 7.5 g/dL (11.5-15.4); Immature Platelets 4.8 % (1.1-6.1); Mean Corpuscular HGB Conc 31.9 g/dL (31.6-35.5); Mean Corpuscular Hemoglobin 29.5 pg (28.0-33.3); Mean Corpuscular Volume 92.5 fL (83.0-100.0); Mean Platelet Volume 10.2 fL (9.4-12.4); Nucleated Red Blood Cells 1.3 /100 WBC (0); Red Cell Distribution Width 14.8 % (11.5-14.5); White Blood Count 4.6 K/mcL (4.3-11.1)
[2019-08-10 04:52] LABS: Platelet Count 76 K/mcL (140-400)
[2019-08-10 05:05] LABS: Calcium 7.8 mg/dL (8.6-10.3); Magnesium 2.7 mg/dL (1.6-2.6); Phosphorous 3.8 mg/dL (2.7-4.5); Potassium 3.1 mEq/L (3.5-5.1)
[2019-08-10 05:07] LABS: Eosinophils # 0.1 K/mcL (0.0-0.6); Lymphocytes # 0.1 K/mcL (0.6-4.6); Neutrophils # 4.4 K/mcL (1.6-8.9); Platelet Estimate Decreased (Normal)
[2019-08-10 05:08] LABS: Hypochromasia Present (Not Present)
[2019-08-10] MEDS: Calcium Gluconate 1gm/50mL 1 GM/50 ML BAG IVPB PRN ×2 (05:35→12:05)
[2019-08-10] MEDS: Vasopressin 40 UNIT in D5% in Water 100 ML IVC SCH (05:44)
[2019-08-10 06:01] LABS: ABG Base Excess 5 mEq/L (-2 to 3); ABG HCO3 33 mEq/L (21-27); ABG Oxygen Saturation 94 % (95-98); ABG PCO2 66 mmHg (35-45); ABG PO2 79 mmHg (85-104); ABG TCO2 35 mEq/L (20-26); Blood Gas VT 420 cc
[2019-08-10] MEDS: FentaNYL (PF) 1,000 MCG in 0.9 % Sodium Chloride 80 ML IVC SCH (06:30)
[2019-08-10] MEDS ORDERED: Albumin 25% 25gram/100mL 25 GM/100 ML IV.SOLN IVPB ONE (08:16)
[2019-08-10] MEDS: Pantoprazole 40 MG VIAL IVP SCH (08:29)
[2019-08-10] MEDS: Aspirin 81 MG TAB.CHEW PO SCH (08:32)
[2019-08-10] MEDS: Chlorhexidine Rinse 15 ML MOUTHWASH MM SCH ×2 (08:32→19:54)
[2019-08-10] MEDS: Ipratropium/Albuterol Neb 3 ML IH SCH ×3 (09:55→22:18)
[2019-08-10] MEDS: Budesonide/Formoterol 160/4.5 1 PUFF INH IH SCH ×2 (09:55→22:18)
[2019-08-10 11:32] LABS: VBG Ionized Calcium 1.07 mmol/L (1.15-1.35)
[2019-08-10 11:32] LABS: Hematocrit 22.2 % (35.3-44.9); Hemoglobin 7.1 g/dL (11.5-15.4); Mean Corpuscular Volume 93.7 fL (83.0-100.0); Red Blood Count 2.37 M/mcL (3.82-4.97)
[2019-08-10 11:33] LABS: Immature Platelets 5.9 % (1.1-6.1); Lymphocytes # 0.2 K/mcL (0.6-4.6); Mean Platelet Volume 10.8 fL (9.4-12.4); Monocytes # 0.1 K/mcL (0.0-1.3); Red Cell Distribution Width 14.7 % (11.5-14.5)
[2019-08-10 11:34] LABS: Platelet Count 69 K/mcL (140-400)
[2019-08-10 11:51] LABS: Calcium 8.6 mg/dL (8.6-10.3); Potassium 3.3 mEq/L (3.5-5.1)
[2019-08-10 11:54] LABS: Neutrophils # 3.8 K/mcL (1.6-8.9)
[2019-08-10 11:55] LABS: Anisocytosis 1+ (Not Present); Platelet Estimate Decreased (Normal)
[2019-08-10] MEDS: Potassium Chloride 40 MEQ/200 ML BAG IVPB PRN ×2 (12:10→13:15)
[2019-08-11] MEDS: Insulin LISPRO 300 UNITS/3 ML VIAL SQ SCH ×5 (01:14→16:26)
[2019-08-11] MEDS: Dexmedetomidine HCl 400 MCG/100 ML MLS IVC SCH ×4 (01:36→23:58)
[2019-08-11] MEDS: FentaNYL (PF) 1,000 MCG in 0.9 % Sodium Chloride 80 ML IVC SCH ×2 (03:52→17:46)
[2019-08-11] MEDS: Cefepime HCl 1,000 MG in Water for inj. (sterile) 10 ML IVP SCH ×2 (04:16→16:25)
[2019-08-11] MEDS: Artificial Tears SOLN 15 ML BOTTLE BOTH EYES SCH ×6 (04:17→23:54)
[2019-08-11] MEDS: Ipratropium/Albuterol Neb 3 ML IH SCH ×4 (04:22→19:58)
[2019-08-11 04:32] LABS: Hematocrit 22.4 % (35.3-44.9); Mean Corpuscular Volume 94.9 fL (83.0-100.0); Red Blood Count 2.36 M/mcL (3.82-4.97)
[2019-08-11 04:34] LABS: Basophils % 0.6 %; Immature Granulocytes % 3.3 % (0-4); Immature Platelets 6.9 % (1.1-6.1); Lymphocytes # 0.1 K/mcL (0.6-4.6); Lymphocytes % 3.8 %; Mean Corpuscular HGB Conc 31.3 g/dL (31.6-35.5); Mean Corpuscular Hemoglobin 29.7 pg (28.0-33.3); Monocytes # 0.2 K/mcL (0.0-1.3); Nucleated Red Blood Cells 1.8 /100 WBC (0); Red Cell Distribution Width 14.8 % (11.5-14.5); Segmented Neutrophils % 87.3 %; White Blood Count 3.4 K/mcL (4.3-11.1)
[2019-08-11 04:42] LABS: Platelet Count 71 K/mcL (140-400)
[2019-08-11 04:54] LABS: Calcium 8.4 mg/dL (8.6-10.3); Potassium 3.8 mEq/L (3.5-5.1)
[2019-08-11 05:10] LABS: ABG Base Excess 0 mEq/L (-2 to 3); ABG HCO3 28 mEq/L (21-27); ABG Oxygen Saturation 95 % (95-98); ABG PCO2 62 mmHg (35-45); ABG PH 7.26 pH Units (7.32-7.45); ABG PO2 91 mmHg (85-104); ABG TCO2 30 mEq/L (20-26); Blood Gas Modality ASSIST CONTROL; Blood Gas VT 420 cc
[2019-08-11 05:20] LABS: Platelet Estimate Decreased (Normal)
[2019-08-11] MEDS: Vancomycin Oral Soln 125 MG/2.5 ML UDC PO SCH ×4 (05:25→23:53)
[2019-08-11] MEDS: Hydrocortisone Sodium Succ 100 MG/2 ML VIAL IVP SCH ×4 (05:25→23:53)
[2019-08-11 05:26] LABS: Magnesium 2.6 mg/dL (1.6-2.6); Phosphorous 4.2 mg/dL (2.7-4.5)
[2019-08-11 05:42] LABS: VBG Ionized Calcium 1.09 mmol/L (1.15-1.35)
[2019-08-11] MEDS: Potassium Chloride 40 MEQ/200 ML BAG IVPB PRN ×2 (06:10→07:15)
[2019-08-11] MEDS: Calcium Gluconate 1gm/50mL 1 GM/50 ML BAG IVPB PRN (06:19)
[2019-08-11] MEDS: Norepinephrine 8 MG in 0.9 % Sodium Chloride 250 ML IVC SCH ×2 (08:26→21:58)
[2019-08-11] MEDS: Vasopressin 40 UNIT in D5% in Water 100 ML IVC SCH (08:26)
[2019-08-11] MEDS: Pantoprazole 40 MG VIAL IVP SCH (08:31)
[2019-08-11] MEDS: MetroNIDAZOLE 500 MG/100 ML 500 MG/100 ML BAG IVPB SCH ×3 (08:31→23:53)
[2019-08-11] MEDS: Aspirin 81 MG TAB.CHEW PO SCH (08:31)
[2019-08-11] MEDS: Chlorhexidine Rinse 15 ML MOUTHWASH MM SCH ×2 (08:31→19:44)
[2019-08-11] MEDS: Budesonide/Formoterol 160/4.5 1 PUFF INH IH SCH ×2 (09:22→20:00)
[2019-08-11] MEDS ORDERED: D5% in Water 1,000 ML IVC PRN (11:06)
[2019-08-11] MEDS ORDERED: Dextrose Gel 15 GM/37.5 ML TUBE PO PRN ×2 (11:06)
[2019-08-11] MEDS ORDERED: *HR* Dextrose 50 % in Water (Syg) 50 ML SYRINGE IVP PRN (11:06)
[2019-08-11 11:56] LABS: VBG Ionized Calcium 1.17 mmol/L (1.15-1.35)
[2019-08-11] MEDS: *HR* Heparin 5,000 UNIT/ML VIAL SQ SCH ×2 (13:42→22:20)
[2019-08-11] MEDS: Insulin DETEMIR 100 UNIT/ML X5UNITS SQ SCH (19:44)
[2019-08-11] MEDS ORDERED: Insulin LISPRO 300 UNITS/3 ML VIAL SQ SCH (21:00)
[2019-08-12] MEDS: Artificial Tears SOLN 15 ML BOTTLE BOTH EYES SCH ×6 (03:08→23:20)
[2019-08-12] MEDS: Cefepime HCl 1,000 MG in Water for inj. (sterile) 10 ML IVP SCH (03:08)
[2019-08-12] MEDS: Vasopressin 40 UNIT in D5% in Water 100 ML IVC SCH (03:08)
[2019-08-12] MEDS: Ipratropium/Albuterol Neb 3 ML IH SCH ×4 (03:30→21:54)
[2019-08-12 03:32] LABS: Basophils % 0.5 %; Hemoglobin 7.2 g/dL (11.5-15.4); Immature Granulocytes % 9.7 % (0-4); Immature Platelets 10.2 % (1.1-6.1); Lymphocytes # 0.1 K/mcL (0.6-4.6); Lymphocytes % 3.7 %; Mean Corpuscular HGB Conc 31.3 g/dL (31.6-35.5); Mean Corpuscular Hemoglobin 29.8 pg (28.0-33.3); Mean Platelet Volume 12.5 fL (9.4-12.4); Monocytes # 0.2 K/mcL (0.0-1.3); Monocytes % 6.3 %; Nucleated Red Blood Cells 5.5 /100 WBC (0); Red Blood Count 2.42 M/mcL (3.82-4.97); Segmented Neutrophils % 79.8 %; White Blood Count 3.8 K/mcL (4.3-11.1)
[2019-08-12 03:33] LABS: Platelet Count 67 K/mcL (140-400)
[2019-08-12 03:53] LABS: Calcium 8.1 mg/dL (8.6-10.3); Magnesium 2.6 mg/dL (1.6-2.6); Potassium 4.5 mEq/L (3.5-5.1)
[2019-08-12 04:36] LABS: Platelet Estimate Decreased (Normal)
[2019-08-12 04:47] LABS: ABG Base Excess -1 mEq/L (-2 to 3); ABG HCO3 26 mEq/L (21-27); ABG Oxygen Saturation 81 % (95-98); ABG PCO2 51 mmHg (35-45); ABG PH 7.31 pH Units (7.32-7.45); ABG PO2 50 mmHg (85-104); ABG TCO2 27 mEq/L (20-26); Blood Gas Modality VC; Blood Gas VT 420 cc
[2019-08-12] MEDS ORDERED: Insulin LISPRO 300 UNITS/3 ML VIAL SQ ONE (05:11)
[2019-08-12] MEDS: *HR* Heparin 5,000 UNIT/ML VIAL SQ SCH ×3 (05:14→22:20)
[2019-08-12] MEDS: Vancomycin Oral Soln 125 MG/2.5 ML UDC PO SCH ×4 (05:14→23:20)
[2019-08-12] MEDS: Hydrocortisone Sodium Succ 100 MG/2 ML VIAL IVP SCH ×4 (05:15→23:19)
[2019-08-12 05:16] LABS: ABG Base Excess -1 mEq/L (-2 to 3); ABG HCO3 26 mEq/L (21-27); ABG Oxygen Saturation 87 % (95-98); ABG PCO2 55 mmHg (35-45); ABG PH 7.28 pH Units (7.32-7.45); ABG PO2 60 mmHg (85-104); ABG TCO2 28 mEq/L (20-26); Blood Gas Modality VC; Blood Gas VT 420 cc
[2019-08-12] MEDS: Dexmedetomidine HCl 400 MCG/100 ML MLS IVC SCH ×4 (06:49→22:14)
[2019-08-12] MEDS: FentaNYL (PF) 1,000 MCG in 0.9 % Sodium Chloride 80 ML IVC SCH ×2 (06:50→19:09)
[2019-08-12] MEDS: Pantoprazole 40 MG VIAL IVP SCH (08:30)
[2019-08-12] MEDS: MetroNIDAZOLE 500 MG/100 ML 500 MG/100 ML BAG IVPB SCH (08:30)
[2019-08-12] MEDS: Aspirin 81 MG TAB.CHEW PO SCH (08:30)
[2019-08-12] MEDS: Chlorhexidine Rinse 15 ML MOUTHWASH MM SCH ×2 (08:30→19:12)
[2019-08-12] MEDS: Insulin LISPRO 300 UNITS/3 ML VIAL SQ SCH ×5 (08:31→23:22)
[2019-08-12] MEDS: Budesonide/Formoterol 160/4.5 1 PUFF INH IH SCH ×2 (09:27→21:54)
[2019-08-12] MEDS: Cisatracurium 200 MG in 0.9 % Sodium Chloride 180 ML IVC SCH (10:49)
[2019-08-12] MEDS ORDERED: Furosemide 40 MG/4 ML VIAL IVP ONE (10:55)
[2019-08-12 11:45] LABS: ABG Base Excess -1 mEq/L (-2 to 3); ABG HCO3 23 mEq/L (21-27); ABG Oxygen Saturation 100 % (95-98); ABG PCO2 35 mmHg (35-45); ABG PH 7.44 pH Units (7.32-7.45); ABG PO2 191 mmHg (85-104); ABG TCO2 24 mEq/L (20-26); Blood Gas Modality VC; Blood Gas VT 420 cc
[2019-08-12] MEDS: Albumin 25% 25gram/100mL 25 GM/100 ML IV.SOLN IVC SCH ×2 (12:25→13:56)
[2019-08-12] MEDS: Furosemide 40 MG/4 ML VIAL IVP SCH (19:16)
[2019-08-12] MEDS: Insulin DETEMIR 100 UNIT/ML X5UNITS SQ SCH (19:16)
[2019-08-12] MEDS: Norepinephrine 8 MG in 0.9 % Sodium Chloride 250 ML IVC SCH (22:15)
[2019-08-13] MEDS: Cisatracurium 200 MG in 0.9 % Sodium Chloride 180 ML IVC SCH ×2 (01:18→20:20)
[2019-08-13] MEDS: Vasopressin 40 UNIT in D5% in Water 100 ML IVC SCH (01:48)
[2019-08-13] MEDS: FentaNYL (PF) 1,000 MCG in 0.9 % Sodium Chloride 80 ML IVC SCH ×3 (02:07→17:10)
[2019-08-13] MEDS: Ipratropium/Albuterol Neb 3 ML IH SCH ×4 (03:43→21:26)
[2019-08-13] MEDS: Insulin LISPRO 300 UNITS/3 ML VIAL SQ SCH ×5 (03:44→19:39)
[2019-08-13] MEDS: Artificial Tears SOLN 15 ML BOTTLE BOTH EYES SCH ×5 (03:44→19:39)
[2019-08-13 04:02] LABS: Mean Corpuscular Volume 91.3 fL (83.0-100.0)
[2019-08-13 04:04] LABS: Hematocrit 21.1 % (35.3-44.9); Hemoglobin 6.8 g/dL (11.5-15.4); Immature Platelets 9.3 % (1.1-6.1); Mean Corpuscular HGB Conc 32.2 g/dL (31.6-35.5); Mean Corpuscular Hemoglobin 29.4 pg (28.0-33.3); Mean Platelet Volume 12.9 fL (9.4-12.4); Nucleated Red Blood Cells 5.1 /100 WBC (0); Red Blood Count 2.31 M/mcL (3.82-4.97); Red Cell Distribution Width 14.1 % (11.5-14.5); White Blood Count 4.5 K/mcL (4.3-11.1)
[2019-08-13 04:07] LABS: Platelet Count 70 K/mcL (140-400)
[2019-08-13] MEDS: Dexmedetomidine HCl 400 MCG/100 ML MLS IVC SCH ×4 (04:15→19:38)
[2019-08-13 04:25] LABS: Calcium 8.6 mg/dL (8.6-10.3); Magnesium 2.2 mg/dL (1.6-2.6); Phosphorous 2.9 mg/dL (2.7-4.5); Potassium 3.4 mEq/L (3.5-5.1)
[2019-08-13 04:38] LABS: Lymphocytes # 0.6 K/mcL (0.6-4.6); Monocytes # 0.1 K/mcL (0.0-1.3); Neutrophils # 3.8 K/mcL (1.6-8.9)
[2019-08-13] MEDS: Hydrocortisone Sodium Succ 100 MG/2 ML VIAL IVP SCH ×3 (04:50→17:08)
[2019-08-13] MEDS: Vancomycin Oral Soln 125 MG/2.5 ML UDC PO SCH ×3 (04:50→17:09)
[2019-08-13] MEDS: *HR* Heparin 5,000 UNIT/ML VIAL SQ SCH ×3 (04:51→21:43)
[2019-08-13 05:34] LABS: ABG Base Excess 3 mEq/L (-2 to 3); ABG HCO3 26 mEq/L (21-27); ABG Oxygen Saturation 96 % (95-98); ABG PCO2 33 mmHg (35-45); ABG PH 7.51 pH Units (7.32-7.45); ABG PO2 73 mmHg (85-104); ABG TCO2 27 mEq/L (20-26); Blood Gas VT 420 cc
[2019-08-13] MEDS: Aspirin 81 MG TAB.CHEW PO SCH (08:57)
[2019-08-13] MEDS: Pantoprazole 40 MG VIAL IVP SCH ×2 (08:57→20:19)
[2019-08-13] MEDS: Furosemide 40 MG/4 ML VIAL IVP SCH ×2 (08:57→17:09)
[2019-08-13] MEDS: Chlorhexidine Rinse 15 ML MOUTHWASH MM SCH ×2 (08:57→19:40)
[2019-08-13] MEDS: Budesonide/Formoterol 160/4.5 1 PUFF INH IH SCH ×2 (09:09→21:27)
[2019-08-13 09:22] LABS: ABG Base Excess -2 mEq/L (-2 to 3); ABG HCO3 26 mEq/L (21-27); ABG Oxygen Saturation 91 % (95-98); ABG PCO2 60 mmHg (35-45); ABG PH 7.25 pH Units (7.32-7.45); ABG PO2 72 mmHg (85-104); ABG TCO2 28 mEq/L (20-26); Blood Gas VT 400 cc
[2019-08-13 16:34] LABS: Phosphorous 6.7 mg/dL (2.7-4.5); Potassium 3.7 mEq/L (3.5-5.1)
[2019-08-13] MEDS: Potassium Chloride 40 MEQ/200 ML BAG IVPB PRN ×2 (18:19→19:38)
[2019-08-13] MEDS: Insulin DETEMIR 100 UNIT/ML X5UNITS SQ SCH (19:42)
[2019-08-13] MEDS ORDERED: *HR* Dextrose 50 % in Water (Syg) 50 ML SYRINGE IVP PRN (20:06)
[2019-08-13] MEDS: Norepinephrine 8 MG in 0.9 % Sodium Chloride 250 ML IVC SCH (20:56)
[2019-08-13] MEDS: Insulin Human Regular 100 UNIT in 0.9 % Sodium Chloride 100 ML IVC SCH (21:45)
[2019-08-14] MEDS: Dexmedetomidine HCl 400 MCG/100 ML MLS IVC SCH ×4 (00:19→17:54)
[2019-08-14] MEDS: Hydrocortisone Sodium Succ 100 MG/2 ML VIAL IVP SCH ×4 (00:20→17:13)
[2019-08-14] MEDS: Vancomycin Oral Soln 125 MG/2.5 ML UDC PO SCH ×4 (00:20→17:54)
[2019-08-14] MEDS: Vasopressin 40 UNIT in D5% in Water 100 ML IVC SCH ×2 (00:50→23:45)
[2019-08-14] MEDS: Artificial Tears SOLN 15 ML BOTTLE BOTH EYES SCH ×6 (00:51→20:54)
[2019-08-14] MEDS: Ipratropium/Albuterol Neb 3 ML IH SCH ×4 (03:15→22:18)
[2019-08-14] MEDS: Potassium Chloride 40 MEQ/200 ML BAG IVPB PRN ×4 (03:22→17:56)
[2019-08-14 03:55] LABS: Red Cell Distribution Width 14.2 % (11.5-14.5); White Blood Count 4.8 K/mcL (4.3-11.1)
[2019-08-14 03:55] LABS: VBG Ionized Calcium 1.04 mmol/L (1.15-1.35)
[2019-08-14 03:57] LABS: Hematocrit 21.8 % (35.3-44.9); Immature Platelets 10.8 % (1.1-6.1); Mean Corpuscular HGB Conc 32.1 g/dL (31.6-35.5); Mean Corpuscular Hemoglobin 29.5 pg (28.0-33.3); Mean Platelet Volume 12.3 fL (9.4-12.4); Nucleated Red Blood Cells 7.7 /100 WBC (0); Red Blood Count 2.37 M/mcL (3.82-4.97)
[2019-08-14 04:19] LABS: Calcium 8.3 mg/dL (8.6-10.3); Magnesium 1.9 mg/dL (1.6-2.6); Phosphorous 5.5 mg/dL (2.7-4.5); Potassium 3.4 mEq/L (3.5-5.1)
[2019-08-14 04:20] LABS: Platelet Count 77 K/mcL (140-400)
[2019-08-14 04:35] LABS: INR 1.4; Prothrombin Time 15.5 Seconds (9.4-12.1)
[2019-08-14] MEDS: Calcium Gluconate 1gm/50mL 1 GM/50 ML BAG IVPB PRN (04:49)
[2019-08-14 04:56] LABS: Neutrophils # 3.3 K/mcL (1.6-8.9)
[2019-08-14 04:57] LABS: Lymphocytes # 0.6 K/mcL (0.6-4.6)
[2019-08-14 04:58] LABS: Anisocytosis 1+ (Not Present); Platelet Estimate Decreased (Normal); Polychromasia 1+ (Not Present)
[2019-08-14] MEDS: Insulin Human Regular 100 UNIT in 0.9 % Sodium Chloride 100 ML IVC SCH (05:00)
[2019-08-14] MEDS: *HR* Heparin 5,000 UNIT/ML VIAL SQ SCH ×3 (05:02→20:51)
[2019-08-14] MEDS: Cisatracurium 200 MG in 0.9 % Sodium Chloride 180 ML IVC SCH (05:10)
[2019-08-14] MEDS ORDERED: Insulin DETEMIR 100 UNIT/ML X5UNITS SQ ONE (05:48)
[2019-08-14] MEDS ORDERED: D5% in Water 1,000 ML IVC PRN (05:49)
[2019-08-14] MEDS ORDERED: *HR* Dextrose 50 % in Water (Syg) 50 ML SYRINGE IVP PRN (05:49)
[2019-08-14] MEDS ORDERED: Dextrose Gel 15 GM/37.5 ML TUBE PO PRN ×2 (05:49)
[2019-08-14 08:02] LABS: ABG Base Excess 0 mEq/L (-2 to 3); ABG HCO3 25 mEq/L (21-27); ABG Oxygen Saturation 86 % (95-98); ABG PCO2 39 mmHg (35-45); ABG PH 7.41 pH Units (7.32-7.45); ABG PO2 51 mmHg (85-104); ABG TCO2 26 mEq/L (20-26); Blood Gas Modality ASSIST CONTROL; Blood Gas VT 400 cc
[2019-08-14] MEDS: Chlorhexidine Rinse 15 ML MOUTHWASH MM SCH ×2 (08:41→20:51)
[2019-08-14] MEDS: Aspirin 81 MG TAB.CHEW PO SCH (08:41)
[2019-08-14] MEDS: Furosemide 40 MG/4 ML VIAL IVP SCH ×2 (08:42→17:53)
[2019-08-14] MEDS: Pantoprazole 40 MG VIAL IVP SCH (08:42)
[2019-08-14] MEDS: Insulin LISPRO 300 UNITS/3 ML VIAL SQ SCH ×4 (08:42→20:54)
[2019-08-14] MEDS: Bisacodyl 10 MG RECTAL SUPPOSITORY RC SCH (08:42)
[2019-08-14] MEDS: Budesonide/Formoterol 160/4.5 1 PUFF INH IH SCH ×2 (10:04→22:18)
[2019-08-14] MEDS ORDERED: Albumin 25% 25gram/100mL 25 GM/100 ML IV.SOLN IVPB ONE (10:43)
[2019-08-14 13:15] LABS: VBG Ionized Calcium 1.14 mmol/L (1.15-1.35)
[2019-08-14 13:29] LABS: Magnesium 2.3 mg/dL (1.6-2.6); Potassium 3.4 mEq/L (3.5-5.1)
[2019-08-14] MEDS ORDERED: Insulin DETEMIR 100 UNIT/ML X5UNITS SQ SCH (21:00)
[2019-08-14] MEDS: Norepinephrine 8 MG in 0.9 % Sodium Chloride 250 ML IVC SCH (23:45)
[2019-08-15] MEDS: Hydrocortisone Sodium Succ 100 MG/2 ML VIAL IVP SCH (00:13)
[2019-08-15] MEDS: Insulin LISPRO 300 UNITS/3 ML VIAL SQ SCH ×4 (00:13→11:51)
[2019-08-15] MEDS: Artificial Tears SOLN 15 ML BOTTLE BOTH EYES SCH ×4 (00:13→11:38)
[2019-08-15] MEDS: Vancomycin Oral Soln 125 MG/2.5 ML UDC PO SCH ×3 (00:19→11:38)
[2019-08-15] MEDS: Dexmedetomidine HCl 400 MCG/100 ML MLS IVC SCH ×3 (00:28→11:36)
[2019-08-15] MEDS: Ipratropium/Albuterol Neb 3 ML IH SCH ×3 (03:33→17:37)
[2019-08-15 04:54] LABS: ABG Base Excess -1 mEq/L (-2 to 3); ABG HCO3 29 mEq/L (21-27); ABG Oxygen Saturation 84 % (95-98); ABG PCO2 81 mmHg (35-45); ABG PH 7.16 pH Units (7.32-7.45); ABG PO2 64 mmHg (85-104); ABG TCO2 31 mEq/L (20-26); Blood Gas Modality ASSIST CONTROL; Blood Gas VT 300 cc
[2019-08-15] MEDS: *HR* Heparin 5,000 UNIT/ML VIAL SQ SCH ×2 (05:13→11:37)
[2019-08-15 05:36] LABS: Calcium 8.4 mg/dL (8.6-10.3)
[2019-08-15 06:15] LABS: Hematocrit 22.2 % (35.3-44.9); Hemoglobin 6.9 g/dL (11.5-15.4); Mean Corpuscular HGB Conc 31.1 g/dL (31.6-35.5); Mean Corpuscular Hemoglobin 29.9 pg (28.0-33.3); Mean Corpuscular Volume 96.1 fL (83.0-100.0); Mean Platelet Volume 13.1 fL (9.4-12.4); Nucleated Red Blood Cells 5.7 /100 WBC (0); Platelet Count 108 K/mcL (140-400); Red Blood Count 2.31 M/mcL (3.82-4.97)
[2019-08-15 07:02] LABS: Anisocytosis 1+ (Not Present); Lymphocytes # 0.4 K/mcL (0.6-4.6); Neutrophils # 7.7 K/mcL (1.6-8.9); Platelet Estimate Slight Decrease (Normal); Polychromasia 1+ (Not Present)
[2019-08-15] MEDS: Aspirin 81 MG TAB.CHEW PO SCH (08:34)
[2019-08-15] MEDS: Chlorhexidine Rinse 15 ML MOUTHWASH MM SCH (08:34)
[2019-08-15] MEDS: Furosemide 40 MG/4 ML VIAL IVP SCH (08:34)
[2019-08-15] MEDS: Bisacodyl 10 MG RECTAL SUPPOSITORY RC SCH (08:35)
[2019-08-15] MEDS ORDERED: Pantoprazole 40 MG VIAL IVP SCH (09:00)
[2019-08-15] MEDS ORDERED: Cefepime HCl 1,000 MG in Water for inj. (sterile) 10 ML IVP SCH (09:00)
[2019-08-15] MEDS: Budesonide/Formoterol 160/4.5 1 PUFF INH IH SCH (09:20)
[2019-08-15 11:03] LABS: ABG Base Excess 2 mEq/L (-2 to 3); ABG HCO3 29 mEq/L (21-27); ABG Oxygen Saturation 70 % (95-98); ABG PCO2 61 mmHg (35-45); ABG PH 7.28 pH Units (7.32-7.45); ABG PO2 43 mmHg (85-104); ABG TCO2 31 mEq/L (20-26); Blood Gas Modality VC; Blood Gas VT 350 cc
[2019-08-15 11:39] LABS: ABG Base Excess 0 mEq/L (-2 to 3); ABG HCO3 27 mEq/L (21-27); ABG Oxygen Saturation 100 % (95-98); ABG PCO2 55 mmHg (35-45); ABG PO2 208 mmHg (85-104); ABG TCO2 29 mEq/L (20-26); Blood Gas Modality VC; Blood Gas VT 350 cc
[2019-08-15 12:39] LABS: Hematocrit 20.9 % (35.3-44.9); Hemoglobin 6.7 g/dL (11.5-15.4)
[2019-08-15 14:05] VITALS: BP 132/92
[2019-08-15] MEDS ORDERED: *HR* LORazepam 2 MG/ML VIAL IVP PRN (15:33)
[2019-08-15] MEDS ORDERED: *HR* LORazepam 2 MG/ML VIAL ONE (15:35)
[2019-08-15] MEDS ORDERED: Scopolamine Patch 1.5 MG PATCH.TD72 TD SCH (15:45)
[2019-08-15] MEDS ORDERED: Insulin DETEMIR 100 UNIT/ML X5UNITS SQ SCH (21:00)
[2019-08-15] MEDS ORDERED: Hydrocortisone Sodium Succ 100 MG/2 ML VIAL IVP SCH (21:00)
== END 2019-08-15 15:05 | disposition expired | DRG 870 ==
LOC: EMEROOARM 03:51 → ICNU 07:31
PROVIDERS: ADMIT Internal Medicine; ATTEND Internal Medicine